=== PATIENT | female | born 1960 | race Caucasian/White ===

== ENCOUNTER 2016-11-11 14:16 | Emergency (ER) | payer OTHER, MEDICAID ==
[~2016-11-11] VITALS: Ht 160 cm; Wt 150.0 kg
[~2016-11-11 14:16] MED LIST: ADVAI250I PO; CYCL-36 PO; METF500 PO; VENTAER INH; ZOFR4TAB3 SL
[2016-11-11 14:18] VITALS: BP 164/80; PULSE 68; RESP 20; TEMP 98; O2SAT 99
--- NOTE | 2016-11-11 15:08 | PD ---
HPI Chief Complaint: Driver Salesman Problem/Complaint Time Seen by Provider: 15:08 Travel History International Travel<30 days: No Contact w/Intl Traveler<30days: No Traveled to known affect area: No History of Present Illness HPI 56-year-old female with history of diabetes, COPD, and vaginal bleeding presents the emergency department for evaluation a lower abdominal pain with associated vaginal bleeding. Patient has been having vaginal bleeding for the last 3 months. She has seen her primary care provider. An ultrasound was done last week and she was referred to a personal coach. Patient states that she has been unable to get to the personal coach in the pain in her lower abdomen is becoming worse. She is changing her pad hourly. She is becoming short of breath with ambulation and experiencing mild dizziness with prolonged ambulation. Denies any fever or chills. States that she was hospitalized once before for this bleeding and was recommended to have a blood transfusion but did not want at that time. She reports being given iron instead. She denies any chest pain. She has no other symptoms to report at this time. PFSH Past Medical History Hx Anticoagulant Therapy: Yes Arthritis: Yes Asthma: Yes Blood Disorders: No Cancer: No Cardiovascular Problems: No COPD: Yes Cerebrovascular Accident: No Diabetes: Yes (METFORMIN) Diminished Hearing: No Deep Vein Thrombosis: Yes Endocrine: No Gastrointestinal Disorders: Yes ( ULCER HX) GERD: Yes Genitourinary: Yes Hepatitis: No Hiatal Hernia: No Hypertension: Yes Immune Disorder: No Implanted Vascular Access Dvce: Yes (IVF) Kidney Stones: Yes Musculoskeletal: Yes (OSTEOARTHRITIS, BACK PROBLEMS) Neurologic: Yes Psychiatric: Yes (CLAUSTRAPHOBIA) Reproductive: No Respiratory: Yes (ASTHMA) Immunizations Current: No Migraines: Yes Renal Failure: No Seizures: No Sleep Apnea: No Thyroid Disease: No Ulcer: No Menopausal: Yes : 4 Para: 4 Miscarriage: 0 Past Surgical History Abdominal Surgery: Yes (LAPAROSCOPIC SX, LIPOMA REMOVAL 02/2014) AICD: No Arteriovenous Shunt: No Body Medical Devices: IVF Cardiac Surgery: No Section: Yes Cholecystectomy: Yes (IN 2003) Ear Surgery: No Endocrine Surgery: No Eye Surgery: No Genitourinary Surgery: No Gynecologic Surgery: No Insulin Pump: No Joint Replacement: Yes (LEFT KNEE PARTIAL REPLACEMENT, FULL KNEE REPLACEMENT ON RIGHT) Neurologic Surgery: No Oral Surgery: No Pacemaker: No Thoracic Surgery: No Other Surgery: Yes (RIGHT ARM REPAIR R/T DOGBITE 09/2007) Social History Alcohol Use: No Tobacco Use: Yes (/2 PPD) Substance Use: No Allergies-Medications (Allergen,Severity, Reaction): Coded Allergies: Peanut (Verified Allergy, Severe, Anaphylaxis, 11/11/16) Reported Meds & Prescriptions Reported Meds & Active Scripts Active Reported Centrum Silver (Multiple Vitamins W/ Minerals) 1 Tab 1 Tab PO DAILY [D3-5000] Gabapentin 300 Mg Cap 300 Mg PO TID Flexeril (Cyclobenzaprine HCl) 10 Mg Tab 10 Mg PO Q8HR Acetaminophen-Codeine 300-15 mg Tab 1 Tab PO Q6H PRN Bupropion HCl 100 Mg Tab 150 Mg PO BID Metformin (Metformin HCl) 1,000 Mg Tab 1,000 Mg PO TID With meals Review of Systems Except as stated in HPI: all other systems reviewed are Neg Physical Exam Narrative GENERAL: Obese female patient, ambulatory and in no acute distress. Patient was noted to be mildly short of breath when she walked back into the room. SKIN: Warm and dry. HEAD: Atraumatic. Normocephalic. EYES: Pupils equal and round. No scleral icterus. No injection or drainage. ENT: No nasal bleeding or discharge. Mucous membranes pink and moist. NECK: Trachea midline. No JVD. CARDIOVASCULAR: Regular rate and rhythm. No murmur appreciated. RESPIRATORY: No accessory muscle use. Diminished likely due to girth.. Breath sounds equal bilaterally. GASTROINTESTINAL: Abdomen soft, nondistended. Suprapubic tenderness to deep palpation. Hepatic and splenic margins not palpable. MUSCULOSKELETAL: No obvious deformities. No clubbing. No cyanosis. No edema. NEUROLOGICAL: Awake and alert. No obvious cranial nerve deficits. Motor grossly within normal limits. Normal speech. PSYCHIATRIC: Appropriate mood and affect; insight and judgment normal. Data Data Last Documented VS Vital Signs Date Time Temp Pulse Resp B/P Pulse Ox O2 Delivery O2 Flow Rate FiO2 11/11/16 18:53 61 18 127/67 96 Room Air 11/11/16 14:18 98.0 Orders Complete Blood Count With Diff (11/11/16 15:07) Basic Metabolic Panel (Bmp) (11/11/16 15:07) Urinalysis - C+S If Indicated (11/11/16 15:07) Type And Screen (11/11/16 15:07) Coag Profile (11/11/16 15:07) Electrocardiogram (11/11/16 ) Urine Culture (11/11/16 16:10) Ct Abd/Pel W Iv Contrast(Rout) (11/11/16 ) Oxycodone-Acetamin 5-325 Mg (Percocet (11/11/16 19:30) Iv Access Insert/Monitor (11/11/16 19:21) Ecg Monitoring (11/11/16 19:21) Oximetry (11/11/16 19:21) Sodium Chloride 0.9% Flush (Ns Flush) (11/11/16 19:30) Iohexol 350 Inj (Omnipaque 350 Inj) (11/11/16 19:43) Labs Laboratory Tests Test 11/11/16 11/11/16 14:35 16:10 White Blood Count 18.1 TH/MM3 Red Blood Count 5.19 MIL/MM3 Hemoglobin 12.8 GM/DL Hematocrit 40.8 % Mean Corpuscular Volume 78.5 FL Mean Corpuscular Hemoglobin 24.7 PG Mean Corpuscular Hemoglobin 31.5 % Concent Red Cell Distribution Width 14.4 % Platelet Count 348 TH/MM3 Mean Platelet Volume 8.5 FL Neutrophils (%) (Auto) 79.2 % Lymphocytes (%) (Auto) 12.9 % Monocytes (%) (Auto) 7.3 % Eosinophils (%) (Auto) 0.3 % Basophils (%) (Auto) 0.3 % Neutrophils # (Auto) 14.3 TH/MM3 Lymphocytes # (Auto) 2.3 TH/MM3 Monocytes # (Auto) 1.3 TH/MM3 Eosinophils # (Auto) 0.1 TH/MM3 Basophils # (Auto) 0.1 TH/MM3 CBC Comment AUTO DIFF Differential Comment AUTO DIFF CONFIRMED Platelet Estimate NORMAL Platelet Morphology Comment NORMAL Prothrombin Time 10.5 SEC Prothromb Time International 1.0 RATIO Ratio Activated Partial 25.9 SEC Thromboplast Time Sodium Level 142 MEQ/L Potassium Level 4.2 MEQ/L Chloride Level 105 MEQ/L Carbon Dioxide Level 29.6 MEQ/L Anion Gap 7 MEQ/L Blood Urea Nitrogen 16 MG/DL Creatinine 0.76 MG/DL Estimat Glomerular Filtration 79 ML/MIN Rate Random Glucose 71 MG/DL Calcium Level 8.9 MG/DL Blood Type A POSITIVE Antibody Screen NEGATIVE Urine Color YELLOW Urine Turbidity CLEAR Urine pH 5.5 Urine Specific Kellogg 1.022 Urine Protein 100 mg/dL Urine Glucose (UA) NEG mg/dL Urine Ketones NEG mg/dL Urine Occult Blood LARGE Urine Nitrite NEG Urine Bilirubin NEG Urine Urobilinogen LESS THAN 2.0 MG/DL Urine Leukocyte Esterase TRACE Urine RBC /hpf Urine WBC 29 /hpf Urine Squamous Epithelial 1 /hpf Cells Microscopic Urinalysis Comment CULTURE INDICATED MDM Medical Decision Making Medical Screen Exam Complete: Yes Emergency Medical Condition: Yes Medical Record Reviewed: Yes Differential Diagnosis Dysmenorrhea versus menorrhagia versus endometriosis versus UTI versus symptomatic anemia Narrative Course 56-year-old female presents to emergency department for evaluation. Workup was initiated in triage. Once of medical bed becomes available, patient will be transferred and care assumed by that provider. Condition: Stable Callie Sepulveda Nov 11, 2016 15:08
[2016-11-11 16:21] LABS: AUTOMATED NEUTROPHIL # 14.3 TH/MM3 (1.8-7.7); BASOPHIL # 0.1 TH/MM3 (0-0.2); BASOPHIL % 0.3 % (0.0-2.0); EOSINOPHIL # 0.1 TH/MM3 (0-0.4); EOSINOPHIL % 0.3 % (0.0-4.0); HEMATOCRIT 40.8 % (35.0-46.0); LYMPH % 12.9 % (9.0-44.0); LYMPHOCYTE # 2.3 TH/MM3 (1.0-4.8); MEAN CELL VOLUME 78.5 FL (80.0-100.0); MEAN CORPUSCULAR HEMOGLOBIN 24.7 PG (27.0-34.0); MEAN CORPUSCULAR HGB CONC 31.5 % (32.0-36.0); MONO % 7.3 % (0.0-8.0); NEUT % 79.2 % (16.0-70.0); PLATELET COUNT 348 TH/MM3 (150-450); RED BLOOD COUNT 5.19 MIL/MM3 (4.00-5.30); RED CELL DISTRIBUTION WIDTH 14.4 % (11.6-17.2); WHITE BLOOD COUNT 18.1 TH/MM3 (4.0-11.0)
[2016-11-11 16:26] LABS: HEMO FLAGS AUTO DIFF
[2016-11-11 16:31] LABS: APTT (PATIENT) 25.9 SEC (24.3-30.1); PROTHROMBIN TIME - PATIENT 10.5 SEC (9.8-11.6)
[2016-11-11 16:54] LABS: BICARBONATE 29.6 MEQ/L (21.0-32.0); POTASSIUM 4.2 MEQ/L (3.5-5.1)
[2016-11-11 16:58] LABS: BLOOD, URINE LARGE (NEG); COMMENT (UR) CULTURE INDICATED; CULTURE IF INDICATED CULTURE INDICATED; GLUCOSE,URINE NEG (NEG); KETONE, URINE NEG (NEG); NITRITE,URINE NEG (NEG); PH, URINE 5.5 (5.0-8.5); SQUAMOUS EPITHELIAL CELL URINE 1 /hpf (0-5); URINE COLOR YELLOW (YELLW/STRAW)
[2016-11-11 17:34] LABS: PLATELET ESTIMATE SMEAR NORMAL (NORMAL); PLATELET MORPHOLOGY NORMAL (NORMAL); SCAN/DIFF AUTO DIFF CONFIRMED
[2016-11-11 18:53] VITALS: BP 127/67; PULSE 61; RESP 18; O2SAT 96
[2016-11-11] MEDS ORDERED: METF1000 PO (18:55)
[2016-11-11] MEDS ORDERED: BUPR100T4 PO (19:03)
[2016-11-11] MEDS ORDERED: ACET300T49 PO (19:03)
[2016-11-11] MEDS ORDERED: CENTTAB PO (19:03)
[2016-11-11] MEDS ORDERED: CYCL1TAB29 PO (19:03)
[2016-11-11] MEDS ORDERED: [UNRECOGNIZED DRUG - OTHER] (19:03)
[2016-11-11] MEDS ORDERED: GABA300C5 PO (19:03)
--- NOTE | 2016-11-11 19:24 | PD ---
Data Data Last Documented VS Vital Signs Date Time Temp Pulse Resp B/P Pulse Ox O2 Delivery O2 Flow Rate FiO2 11/11/16 18:53 61 18 127/67 96 Room Air 11/11/16 14:18 98.0 Orders Complete Blood Count With Diff (11/11/16 15:07) Basic Metabolic Panel (Bmp) (11/11/16 15:07) Urinalysis - C+S If Indicated (11/11/16 15:07) Type And Screen (11/11/16 15:07) Coag Profile (11/11/16 15:07) Electrocardiogram (11/11/16 ) Urine Culture (11/11/16 16:10) Ct Abd/Pel W Iv Contrast(Rout) (11/11/16 ) Oxycodone-Acetamin 5-325 Mg (Percocet (11/11/16 19:30) Iv Access Insert/Monitor (11/11/16 19:21) Ecg Monitoring (11/11/16 19:21) Oximetry (11/11/16 19:21) Sodium Chloride 0.9% Flush (Ns Flush) (11/11/16 19:30) Iohexol 350 Inj (Omnipaque 350 Inj) (11/11/16 19:43) Ed Urine Pregnancytest Poc (11/11/16 21:01) Labs Laboratory Tests Test 11/11/16 11/11/16 14:35 16:10 White Blood Count 18.1 TH/MM3 Red Blood Count 5.19 MIL/MM3 Hemoglobin 12.8 GM/DL Hematocrit 40.8 % Mean Corpuscular Volume 78.5 FL Mean Corpuscular Hemoglobin 24.7 PG Mean Corpuscular Hemoglobin 31.5 % Concent Red Cell Distribution Width 14.4 % Platelet Count 348 TH/MM3 Mean Platelet Volume 8.5 FL Neutrophils (%) (Auto) 79.2 % Lymphocytes (%) (Auto) 12.9 % Monocytes (%) (Auto) 7.3 % Eosinophils (%) (Auto) 0.3 % Basophils (%) (Auto) 0.3 % Neutrophils # (Auto) 14.3 TH/MM3 Lymphocytes # (Auto) 2.3 TH/MM3 Monocytes # (Auto) 1.3 TH/MM3 Eosinophils # (Auto) 0.1 TH/MM3 Basophils # (Auto) 0.1 TH/MM3 CBC Comment AUTO DIFF Differential Comment AUTO DIFF CONFIRMED Platelet Estimate NORMAL Platelet Morphology Comment NORMAL Prothrombin Time 10.5 SEC Prothromb Time International 1.0 RATIO Ratio Activated Partial 25.9 SEC Thromboplast Time Sodium Level 142 MEQ/L Potassium Level 4.2 MEQ/L Chloride Level 105 MEQ/L Carbon Dioxide Level 29.6 MEQ/L Anion Gap 7 MEQ/L Blood Urea Nitrogen 16 MG/DL Creatinine 0.76 MG/DL Estimat Glomerular Filtration 79 ML/MIN Rate Random Glucose 71 MG/DL Calcium Level 8.9 MG/DL Blood Type A POSITIVE Antibody Screen NEGATIVE Urine Color YELLOW Urine Turbidity CLEAR Urine pH 5.5 Urine Specific Onward 1.022 Urine Protein 100 mg/dL Urine Glucose (UA) NEG mg/dL Urine Ketones NEG mg/dL Urine Occult Blood LARGE Urine Nitrite NEG Urine Bilirubin NEG Urine Urobilinogen LESS THAN 2.0 MG/DL Urine Leukocyte Esterase TRACE Urine RBC /hpf Urine WBC 29 /hpf Urine Squamous Epithelial 1 /hpf Cells Microscopic Urinalysis Comment CULTURE INDICATED MDM Supervised Visit with MAR: Yes Narrative Course Patient care assumed from Tiny WONG. Patient seen as part of provider in triage screening. Brief history is a 56-year-old female presents emergency Department with lower quadrant abdominal pain which has been worsening over the past few days. Left lower quadrant predominately. Patient also states she's been having postmenopausal bleeding for the past 3 months. She has seen her primary care physician referred her to a business banking representative. Every time she tries follow-up with a business banking representative they refer her away saying that she does not have insurance to see them. Patient appears well in the emergency Department. A CAT scan was ordered and shows no metastatic lesions and no lesion around her uterus. I reviewed her ultrasound from outside imaging facility and was fairly limited by habitus. Discussed with the patient that she is feeling well and her H&H is stable. Discussed need follow-up with a business banking representative for endometrial biopsy because her presentation is highly suggestive of cancer. She has contraindications to hormone replacement therapy until seen by business banking representative. After discussing with her she now understands the rationale for needing to follow-up with business banking representative and will states she will do so at her earliest convenience. Her pain is much better under control. She is stable for discharge. Is an incidental finding of urinary tract infection will be placed on Keflex. I did offer her pelvic exam in the emergency department she declined. Diagnosis Primary Impression: Post-menopausal bleeding Additional Impressions: Abdominal pain Qualified Code: R10.32 - Left lower quadrant pain Urinary tract infection Qualified Code: N39.0 - Urinary tract infection without hematuria, site unspecified Additional Instruction: Recommended very close follow-up with a business banking representative. Med/Other Pt SpecificInfo: Prescription(s) given Scripts Cephalexin (Keflex)500 Mg Psw636 Mg PO Q6H 7 Days Ref 0 Prov:Denzel Jennings MD 11/11/16 Disposition: 01 DISCHARGE HOME Condition: Stable Denzel Jennings MD Nov 11, 2016 19:24
[2016-11-11] MEDS ORDERED: oxyCODONE/ACETAMINOPHEN 5 MG/325 MG TAB PO ONE (19:30)
[2016-11-11] MEDS ORDERED: SODIUM CHLORIDE 0.9% FLUSH 5 ML FLUSH IVF PRN (19:30)
[2016-11-11] MEDS ORDERED: IOHEXOL 350 MG/ML 50 ML BTL (for RAD DIAG) IV ONE (19:43)
--- NOTE | 2016-11-11 20:14 | RADRPT ---
EXAM DATE/TIME: 11/11/2016 19:39 [facility] COMPARISON: CT ABDOMEN & PELVIS W CONTRAST, March 12, 2016, 23:38. INDICATIONS : Left lower quadrant pain. IV CONTRAST: 96 cc Omnipaque 350 (iohexol) IV ORAL CONTRAST: No oral contrast ingested. RADIATION DOSE: 33.18 CTDIvol (mGy) MEDICAL HISTORY : Diabetes mellitus type 2. Chronic obstructive pulmonary disease. Gastroesophage al reflux disease.DVT, Asthma SURGICAL HISTORY : section. Cholecystectomy. ENCOUNTER: Initial ACUITY: 1 day PAIN SCALE: 6/10 LOCATION: Left lower quadrant TECHNIQUE: Volumetric scanning of the abdomen and pelvis was performed. Using automated exposure control and adjustment of the mA and/or kV according to patient size, radiation dose was kept as low as reasonably achievable to obtain optimal diagnostic quality images. FINDINGS: LOWER LUNGS: The visualized lower lungs are clear. LIVER: Homogeneous density without lesion. There is no dilation of the biliary tree. Gallbladder has been removed. SPLEEN: Normal size without lesion. PANCREAS: Within normal limits. KIDNEYS: Normal in size and shape. There is no mass, stone or hydronephrosis. ADRENAL GLANDS: Within normal limits. VASCULAR: There is no aortic aneurysm. Vena cava filter is in place. BOWEL/MESENTERY: Scattered diverticula are seen along the colon. The stomach, small bowel, and co braulio demonstrate no acute abnormality. There is no free intraperitoneal air or fluid. ABDOMINAL WALL: Within normal limits. RETROPERITONEUM: There is no lymphadenopathy. BLADDER: No wall thickening or mass. REPRODUCTIVE: Within normal limits. INGUINAL: There is no lymphadenopathy or hernia. MUSCULOSKELETAL: Within normal limits for patient age. CONCLUSION: Colonic diverticulosis without evidence of active inflammatory disease. Status post inferior cava filter placement and cholecystectomy. No evidence of acute process. Rajiv Goodson MD on November 11, 2016 at 20:10 Board Certified Radiologist. This report was verified electronically.
[2016-11-11] MEDS ORDERED: CEPH-460 PO (21:01)
--- NOTE | 2016-11-12 19:29 | EKG ---
Date Performed: 11/11/2016 Time Performed: 16:53:12 PTAGE: 56 years EKG: Sinus rhythm Since previous tracing, no significant change noted NORMAL ECG PREVIOUS TRACING : 03/12/2016 21.17 DOCTOR: Serge Bosch Interpretating Date/Time 11/12/2016 19:27:58
== END 2016-11-11 21:37 | disposition home or self-care (01) ==
LOC: NETRI 14:16 → NEPE 21:37
DX: N95.0 Postmenopausal bleeding (principal); R10.32 Left lower quadrant pain; N39.0 Urinary tract infection, site not specified; B96.20 Unspecified Escherichia coli [E. coli] as the cause of diseases classified elsewhere; R06.02 Shortness of breath; R42 Dizziness and giddiness; I10 Essential (primary) hypertension; E11.9 Type 2 diabetes mellitus without complications; F17.200 Nicotine dependence, unspecified, uncomplicated; Z79.01 Long term (current) use of anticoagulants; Z79.84 Long term (current) use of oral hypoglycemic drugs; Z87.39 Personal history of other diseases of the musculoskeletal system and connective tissue; Z87.09 Personal history of other diseases of the respiratory system; Z86.718 Personal history of other venous thrombosis and embolism; Z87.19 Personal history of other diseases of the digestive system; Z87.448 Personal history of other diseases of urinary system; Z86.69 Personal history of other diseases of the nervous system and sense organs; Z86.59 Personal history of other mental and behavioral disorders
CPT/HCPCS: 74177; 80048; 81001; 84703; 85025; 85610; 85730; 86850; 86900; 86901; 87077; 87086; 87186; 93005; 99284; Q9967

== ENCOUNTER 2016-12-22 12:51 | Emergency (ER) | payer OTHER, MEDICAID ==
[~2016-12-22] VITALS: Ht 160 cm; Wt 148.5 kg
[~2016-12-22 12:51] MED LIST changes: +ACET300T49 PO; -ADVAI250I PO; +BUPR100T4 PO; +CENTTAB PO; +CEPH-460 PO; -CYCL-36 PO; +CYCL1TAB29 PO; +GABA300C5 PO; +METF1000 PO; -METF500 PO; -VENTAER INH; -ZOFR4TAB3 SL; +[UNRECOGNIZED DRUG - OTHER]
[2016-12-22 12:53] VITALS: BP 138/85; PULSE 80; RESP 24; TEMP 98.7; O2SAT 98
--- NOTE | 2016-12-22 13:24 | PD ---
Physical Exam Time Seen by Provider: 13:23 Narrative 56 yo F c/o R shoulder, elbow, ankle pain after slip and fall this morning. Denies hitting head or LOC. Pt ambulatory in triage. VSS Seen in triage, awaiting bed placement. Data Data Last Documented VS Vital Signs Date Time Temp Pulse Resp B/P Pulse Ox O2 Delivery O2 Flow Rate FiO2 12/22/16 12:53 98.7 80 24 138/85 98 Room Air MDM Supervised Visit with MAR: Viki Kiser Dec 22, 2016 13:24
[2016-12-22] MEDS ORDERED: SODIUM CHLORIDE 0.9% FLUSH 10 ML FLUSH IVF PRN (14:15)
--- NOTE | 2016-12-22 14:27 | PD ---
HPI Chief Complaint: Fall Time Seen by Provider: 14:10 Travel History International Travel<30 days: No Contact w/Intl Traveler<30days: No Traveled to known affect area: No History of Present Illness HPI Patient's 56-year-old female presenting to the emergency room for evaluation after fall that occurred prior to arrival. Patient states that she was walking to her kitchen and suddenly felt weak and went down to the floor. She hit her right shoulder, right elbow, right ankle when she fell. She states she didn't realize it was happening, she does not remember the events immediately preceding the fall, she states that happened fast. She currently complains of shortness of breath and chest tightness. She reports the pain is a 10 out of 10. Patient denies any cardiac history. She reports asthma, type 2 diabetes, DVT. PFSH Past Medical History Hx Anticoagulant Therapy: Yes Arthritis: Yes Asthma: Yes Blood Disorders: No Cancer: No Cardiovascular Problems: No COPD: Yes Cerebrovascular Accident: No Diabetes: Yes (METFORMIN) Diminished Hearing: No Deep Vein Thrombosis: Yes Endocrine: No Gastrointestinal Disorders: Yes (GERD) GERD: Yes Genitourinary: Yes Hepatitis: No Hiatal Hernia: No Hypertension: Yes Immune Disorder: No Implanted Vascular Access Dvce: Yes (ivf) Kidney Stones: Yes Medical other: No Musculoskeletal: Yes (OSTEOARTHRITIS, BACK PROBLEMS) Neurologic: Yes Psychiatric: Yes (CLAUSTRAPHOBIA) Reproductive: No Respiratory: Yes (ASTHMA) Immunizations Current: No Migraines: Yes Renal Failure: No Seizures: No Sleep Apnea: No Thyroid Disease: No Ulcer: No Tetanus Vaccination: > 5 Years ?: Not Menopausal: Yes : 4 Para: 4 Miscarriage: 0 Past Surgical History Abdominal Surgery: Yes (LAPAROSCOPIC SX, LIPOMA REMOVAL 02/2014) AICD: No Arteriovenous Shunt: No Body Medical Devices: IVF Cardiac Surgery: No Section: Yes Cholecystectomy: Yes (IN 2003) Ear Surgery: No Endocrine Surgery: No Eye Surgery: No Genitourinary Surgery: No Gynecologic Surgery: No Insulin Pump: No Joint Replacement: Yes (LEFT KNEE PARTIAL REPLACEMENT, FULL KNEE REPLACEMENT ON RIGHT) Neurologic Surgery: No Oral Surgery: No Pacemaker: No Thoracic Surgery: No Other Surgery: Yes (RIGHT ARM REPAIR R/T DOGBITE 09/2007) Social History Alcohol Use: No Tobacco Use: Yes (/2 PPD) Substance Use: No Allergies-Medications (Allergen,Severity, Reaction): Coded Allergies: Peanut (Verified Allergy, Severe, Anaphylaxis, 12/22/16) Reported Meds & Prescriptions Reported Meds & Active Scripts Active Keflex (Cephalexin) 500 Mg Cap 500 Mg PO Q6H 7 Days Reported Centrum Silver (Multiple Vitamins W/ Minerals) 1 Tab 1 Tab PO DAILY [D3-5000] Gabapentin 300 Mg Cap 300 Mg PO TID Flexeril (Cyclobenzaprine HCl) 10 Mg Tab 10 Mg PO Q8HR Acetaminophen-Codeine 300-15 mg Tab 1 Tab PO Q6H PRN Bupropion HCl 100 Mg Tab 150 Mg PO BID Metformin (Metformin HCl) 1,000 Mg Tab 1,000 Mg PO TID With meals Review of Systems Except as stated in HPI: all other systems reviewed are Neg General / Constitutional: No: Fever, Chills HENT: No: Headaches Cardiovascular: Positive: Chest Pain or Discomfort Respiratory: Positive: Shortness of Breath, Wheezing Gastrointestinal: No: Nausea, Abdominal Pain Musculoskeletal: Positive: Myalgias, Arthralgias, Pain Neurologic: Positive: Dizziness, Syncope Physical Exam Narrative GENERAL: The obese, well-developed, alert female. Appears uncomfortable, in no acute distress. SKIN: Focused skin assessment warm/dry. HEAD: Atraumatic. Normocephalic. EYES: Pupils equal and round. No scleral icterus. No injection or drainage. ENT: No nasal bleeding or discharge. Mucous membranes pink and moist. NECK: Trachea midline. No JVD. CARDIOVASCULAR: Regular rate and rhythm. No murmur appreciated. RESPIRATORY: No accessory muscle use. Expiratory wheezes with diminished lung sounds in bases. GASTROINTESTINAL: Abdomen obese soft, non-tender, nondistended. Hepatic and splenic margins not palpable. MUSCULOSKELETAL: No obvious deformities. No clubbing. No cyanosis. No edema. Tenderness to palpation on right shoulder and right lateral ankle. NEUROLOGICAL: Awake and alert. No obvious cranial nerve deficits. Motor grossly within normal limits. Normal speech. PSYCHIATRIC: Appropriate mood and affect; insight and judgment normal. Data Data Last Documented VS Vital Signs Date Time Temp Pulse Resp B/P Pulse Ox O2 Delivery O2 Flow Rate FiO2 12/22/16 15:16 98 Room Air 12/22/16 14:01 83 21 12/22/16 12:53 98.7 138/85 Orders Electrocardiogram (12/22/16 14:06) B-Type Natriuretic Peptide (12/22/16 14:06) Ckmb (Isoenzyme) Profile (12/22/16 14:06) Complete Blood Count With Diff (12/22/16 14:06) Comprehensive Metabolic Panel (12/22/16 14:06) Magnesium (Mg) (12/22/16 14:06) Prothrombin Time / Inr (Pt) (12/22/16 14:06) Act Partial Throm Time (Ptt) (12/22/16 14:06) Troponin I (12/22/16 14:06) Chest, Single Ap (12/22/16 14:06) Ecg Monitoring (12/22/16 14:06) Bilateral Bp Monitoring (12/22/16 14:06) Iv Access Insert/Monitor (12/22/16 14:06) Oximetry (12/22/16 14:06) Oxygen Administration (12/22/16 14:06) Sodium Chloride 0.9% Flush (Ns Flush) (12/22/16 14:15) Shoulder, Complete (>2vws) (12/22/16 ) Ankle, Complete ([id number]) (12/22/16 ) Ct Pulmonary Angiogram (12/22/16 ) Albuterol-Ipratropium Neb (Duoneb Neb) (12/22/16 14:45) Urinalysis - C+S If Indicated (12/22/16 15:46) Vascular Access Team Consult PRN (12/22/16 16:03) Vascular Poc Ultrasound (12/22/16 ) Ketorolac Inj (Toradol Inj) (12/22/16 18:00) Orphenadrine Inj (Norflex Inj) (12/22/16 18:00) Iohexol 350 Inj (Omnipaque 350 Inj) (12/22/16 18:37) Labs Laboratory Tests Test 12/22/16 12/22/16 14:20 16:10 White Blood Count 15.4 TH/MM3 Red Blood Count 4.95 MIL/MM3 Hemoglobin 12.3 GM/DL Hematocrit 37.8 % Mean Corpuscular Volume 76.3 FL Mean Corpuscular Hemoglobin 24.9 PG Mean Corpuscular Hemoglobin 32.7 % Concent Red Cell Distribution Width 14.5 % Platelet Count 370 TH/MM3 Mean Platelet Volume 8.8 FL Neutrophils (%) (Auto) 80.3 % Lymphocytes (%) (Auto) 13.4 % Monocytes (%) (Auto) 5.5 % Eosinophils (%) (Auto) 0.4 % Basophils (%) (Auto) 0.4 % Neutrophils # (Auto) 12.4 TH/MM3 Lymphocytes # (Auto) 2.1 TH/MM3 Monocytes # (Auto) 0.8 TH/MM3 Eosinophils # (Auto) 0.1 TH/MM3 Basophils # (Auto) 0.1 TH/MM3 CBC Comment AUTO DIFF Differential Comment AUTO DIFF CONFIRMED Platelet Estimate NORMAL Platelet Morphology Comment NORMAL Red Cell Morphology Comment NORMAL Prothrombin Time 10.3 SEC Prothromb Time International 0.9 RATIO Ratio Activated Partial 26.1 SEC Thromboplast Time Sodium Level 141 MEQ/L Potassium Level 3.8 MEQ/L Chloride Level 104 MEQ/L Carbon Dioxide Level 29.0 MEQ/L Anion Gap 8 MEQ/L Blood Urea Nitrogen 14 MG/DL Creatinine 0.78 MG/DL Estimat Glomerular Filtration 77 ML/MIN Rate Random Glucose 108 MG/DL Calcium Level 9.1 MG/DL Magnesium Level 1.9 MG/DL Total Bilirubin 0.9 MG/DL Aspartate Amino Transf 11 U/L (AST/SGOT) Alanine Aminotransferase 19 U/L (ALT/SGPT) Alkaline Phosphatase 94 U/L Total Creatine Kinase 79 U/L Troponin I LESS THAN 0.02 NG/ML B-Type Natriuretic Peptide 17 PG/ML Total Protein 7.7 GM/DL Albumin 3.2 GM/DL Urine Color YELLOW Urine Turbidity HAZY Urine pH 5.0 Urine Specific [place] 1.022 Urine Protein NEG mg/dL Urine Glucose (UA) NEG mg/dL Urine Ketones NEG mg/dL Urine Occult Blood NEG Urine Nitrite NEG Urine Bilirubin NEG Urine Urobilinogen LESS THAN 2.0 MG/DL Urine Leukocyte Esterase SMALL Urine RBC 1 /hpf Urine WBC 7 /hpf Urine Squamous Epithelial 9 /hpf Cells Urine Bacteria FEW /hpf Urine Mucus FEW /lpf Microscopic Urinalysis Comment CULT NOT INDICATED MDM Medical Decision Making Medical Screen Exam Complete: Yes Emergency Medical Condition: Yes Interpretation(s) Last Impressions Chest X-Ray 12/22/16 1406 Signed Impressions: Service Date/Time: December 15:26 - CONCLUSION: Normal examination. Parveen Cristina MD Shoulder X-Ray 12/22/16 0000 Signed Impressions: Service Date/Time: December 15:33 - CONCLUSION: Unremarkable examination of the right shoulder except for significant acromial undersurface spurring, chronic. Parveen Cristina MD Ankle X-Ray 12/22/16 0000 Signed Impressions: Service Date/Time: December 15:28 - CONCLUSION: Small ossific fragment distal to the tip of the malleolus could be an avulsion fracture or chronic. Parveen Cristina MD Vital Signs Date Time Temp Pulse Resp B/P Pulse Ox O2 Delivery O2 Flow Rate FiO2 12/22/16 14:01 83 21 98 Room Air 12/22/16 12:53 98.7 80 24 138/85 98 Room Air Differential Diagnosis COPD exacerbation versus syncope versus cardiac arrhythmia versus electrolyte abnormality versus chest pain versus fracture versus sprain versus strain versus dislocation Narrative Course Patient is a 56-year-old female presenting to the emergency for evaluation of shoulder ankle pain after fall this morning. Patient states she was walking to her kitchen and she normally would when she had what appeared to be a syncopal episode. Patient does not remember the events immediately before she fell but states it happened fast. She presented short of breath and tachypneic. Patient has a history of DVT with IVC filter placement. Labs and imaging ordered and pending. CT pulmonary angiogram ordered the patient's history of DVT as well as report of shortness of breath. Chest x-ray shows no acute disease Ankle x-ray shows a possible fragment on the medial malleolus, patient is weightbearing in the emergency department. Shoulder x-rays negative CBC with a mildly elevated white count with left shift Chemistry and coags are unremarkable Troponin is less than 0.02. CT pulmonary angiogram is negative for PE. Patient will be discharged home, plan of care discussed with my attending physician. Patient is encouraged to rest, ice, elevate extremity. She is encouraged to follow-up with her primary doctor or return to emergency department for any new or worsening symptoms. Diagnosis Primary Impression: Ankle pain Qualified Code: M25.571 - Right ankle pain, unspecified chronicity Additional Impressions: Fall Qualified Code: W19.XXXA - Fall, initial encounter Syncope, near Referrals: Primary Care Physician 2 days Patient Instructions: Ankle Sprain (ED), Fall Prevention (ED), General Instructions, Near Syncope (ED) Additional Instructions: Follow-up with your primary doctor in 1-2 days Rest, ice, elevate extremity Take medications as directed Return to emergency department for any new or worsening symptoms Med/Other Pt SpecificInfo: Prescription(s) given Scripts Ibuprofen 800 Mg [id number] Mg PO Q8H PRN (Pain/Inflammation) 10 Days Ref 0 Prov:Ayala Luther 12/22/16 Cyclobenzaprine (Flexeril)10 Mg Tab10 Mg PO TID PRN (MUSCLE SPASM) 5 Days Ref 0 Prov:Ayala Luther 12/22/16 Disposition: 01 DISCHARGE HOME Condition: Stable Ayala Luther Dec 22, 2016 14:27
[2016-12-22] MEDS ORDERED: RESP: ALBUTEROL 2.5 MG/IPRATROPIUM 0.5 MG NEB (SCH) NEB ONE (14:45)
[2016-12-22 14:52] LABS: AUTOMATED NEUTROPHIL # 12.4 TH/MM3 (1.8-7.7); BASOPHIL # 0.1 TH/MM3 (0-0.2); BASOPHIL % 0.4 % (0.0-2.0); EOSINOPHIL # 0.1 TH/MM3 (0-0.4); EOSINOPHIL % 0.4 % (0.0-4.0); HEMATOCRIT 37.8 % (35.0-46.0); LYMPH % 13.4 % (9.0-44.0); LYMPHOCYTE # 2.1 TH/MM3 (1.0-4.8); MEAN CELL VOLUME 76.3 FL (80.0-100.0); MEAN CORPUSCULAR HEMOGLOBIN 24.9 PG (27.0-34.0); MEAN CORPUSCULAR HGB CONC 32.7 % (32.0-36.0); MONO % 5.5 % (0.0-8.0); NEUT % 80.3 % (16.0-70.0); PLATELET COUNT 370 TH/MM3 (150-450); RED BLOOD COUNT 4.95 MIL/MM3 (4.00-5.30); RED CELL DISTRIBUTION WIDTH 14.5 % (11.6-17.2); WHITE BLOOD COUNT 15.4 TH/MM3 (4.0-11.0)
[2016-12-22 14:54] LABS: HEMO FLAGS AUTO DIFF
[2016-12-22 15:10] LABS: APTT (PATIENT) 26.1 SEC (24.3-30.1); INTERNATIONAL NORMALIZED RATIO 0.9 RATIO; PROTHROMBIN TIME - PATIENT 10.3 SEC (9.8-11.6)
[2016-12-22 15:14] LABS: ALT (GPT) 19 U/L (10-53); ANION GAP 8 MEQ/L (5-15); AST (GOT) 11 U/L (15-37); BLOOD UREA NITROGEN 14 MG/DL (7-18); CHLORIDE 104 MEQ/L (98-107); GLOMERULAR FILTRATION RATE 77 ML/MIN (>89); MAGNESIUM 1.9 MG/DL (1.5-2.5); POTASSIUM 3.8 MEQ/L (3.5-5.1); SODIUM (NA) 141 MEQ/L (136-145)
[2016-12-22 15:18] LABS: ALKALINE PHOSPHATASE 94 U/L (45-117); TOTAL BILIRUBIN ADULT 0.9 MG/DL (0.2-1.0)
[2016-12-22 15:20] LABS: CREATINE KINASE 79 U/L (26-192)
[2016-12-22 15:22] LABS: PLATELET ESTIMATE SMEAR NORMAL (NORMAL); PLATELET MORPHOLOGY NORMAL (NORMAL); SCAN/DIFF AUTO DIFF CONFIRMED
--- NOTE | 2016-12-22 15:36 | RADRPT ---
EXAM DATE/TIME: 12/22/2016 15:26 [facility] COMPARISON: CHEST SINGLE AP, May 03, 2015, 13:40. INDICATIONS : Shortness of breath. MEDICAL HISTORY : SURGICAL HISTORY : None. ENCOUNTER: Initial ACUITY: 1 day PAIN SCORE: 0/10 LOCATION: Bilateral chest FINDINGS: A single view of the chest demonstrates the lungs to be symmetrically aerated without evidence of mas s, infiltrate or effusion. The cardiomediastinal contours are unremarkable. Osseous structures are intact. CONCLUSION: Normal examination. Parveen Cristina MD on December 22, 2016 at 15:34 Board Certified Radiologist. This report was verified electronically.
--- NOTE | 2016-12-22 15:38 | RADRPT ---
EXAM DATE/TIME: 12/22/2016 15:28 [facility] COMPARISON: No previous studies available for comparison. INDICATIONS : Fall. MEDICAL HISTORY : None. SURGICAL HISTORY : None. ENCOUNTER: Initial ACUITY: 1 day PAIN SCORE: 8/10 LOCATION: Right ankle FINDINGS: Three view exam was performed of the right ankle. The bony structures are in normal alignment. No e vidence of dislocation, or soft tissue swelling. Small ossific fragment distal to the tip of the med ial malleolus. The ankle mortise is intact. No radiopaque foreign bodies are seen. Bony mineraliz ation is normal. CONCLUSION: Small ossific fragment distal to the tip of the malleolus could be an avulsion fracture or chronic. Parveen Cristina MD on December 22, 2016 at 15:35 Board Certified Radiologist. This report was verified electronically.
--- NOTE | 2016-12-22 15:38 | RADRPT ---
EXAM DATE/TIME: 12/22/2016 15:33 [facility] COMPARISON: No previous studies available for comparison. INDICATIONS : Fall. MEDICAL HISTORY : None. SURGICAL HISTORY : None. ENCOUNTER: Initial ACUITY: 1 day PAIN SCORE: 10/10 LOCATION: Right shoulder FINDINGS: Multiple view examination of the right shoulder demonstrates no evidence of fracture or dislocation. The glenohumeral and acromioclavicular joints are maintained. There is normal range of motion betwe en internal and external rotation. Bony mineralization is normal. CONCLUSION: Unremarkable examination of the right shoulder except for significant acromial undersurface spurring, chronic. Parveen Cristina MD on December 22, 2016 at 15:36 Board Certified Radiologist. This report was verified electronically.
[2016-12-22 16:37] LABS: BACTERIA, URINE FEW /hpf; BLOOD, URINE NEG (NEG); GLUCOSE,URINE NEG (NEG); KETONE, URINE NEG (NEG); MUCUS URINE FEW /lpf (OCC); NITRITE,URINE NEG (NEG); SQUAMOUS EPITHELIAL CELL URINE 9 /hpf (0-5); URINE COLOR YELLOW (YELLW/STRAW)
[2016-12-22 16:39] LABS: COMMENT (UR) CULT NOT INDICATED; CULTURE IF INDICATED CULT NOT INDICATED
--- NOTE | 2016-12-22 17:19 | PD ---
Data Data Last Documented VS Vital Signs Date Time Temp Pulse Resp B/P Pulse Ox O2 Delivery O2 Flow Rate FiO2 12/22/16 15:16 98 Room Air 12/22/16 14:01 83 21 12/22/16 12:53 98.7 138/85 Orders Electrocardiogram (12/22/16 14:06) B-Type Natriuretic Peptide (12/22/16 14:06) Ckmb (Isoenzyme) Profile (12/22/16 14:06) Complete Blood Count With Diff (12/22/16 14:06) Comprehensive Metabolic Panel (12/22/16 14:06) Magnesium (Mg) (12/22/16 14:06) Prothrombin Time / Inr (Pt) (12/22/16 14:06) Act Partial Throm Time (Ptt) (12/22/16 14:06) Troponin I (12/22/16 14:06) Chest, Single Ap (12/22/16 14:06) Ecg Monitoring (12/22/16 14:06) Bilateral Bp Monitoring (12/22/16 14:06) Iv Access Insert/Monitor (12/22/16 14:06) Oximetry (12/22/16 14:06) Oxygen Administration (12/22/16 14:06) Sodium Chloride 0.9% Flush (Ns Flush) (12/22/16 14:15) Shoulder, Complete (>2vws) (12/22/16 ) Ankle, Complete ([id number]) (12/22/16 ) Ct Pulmonary Angiogram (12/22/16 ) Albuterol-Ipratropium Neb (Duoneb Neb) (12/22/16 14:45) Urinalysis - C+S If Indicated (12/22/16 15:46) Vascular Access Team Consult PRN (12/22/16 16:03) Vascular Poc Ultrasound (12/22/16 ) Labs Laboratory Tests Test 12/22/16 12/22/16 14:20 16:10 White Blood Count 15.4 TH/MM3 Red Blood Count 4.95 MIL/MM3 Hemoglobin 12.3 GM/DL Hematocrit 37.8 % Mean Corpuscular Volume 76.3 FL Mean Corpuscular Hemoglobin 24.9 PG Mean Corpuscular Hemoglobin 32.7 % Concent Red Cell Distribution Width 14.5 % Platelet Count 370 TH/MM3 Mean Platelet Volume 8.8 FL Neutrophils (%) (Auto) 80.3 % Lymphocytes (%) (Auto) 13.4 % Monocytes (%) (Auto) 5.5 % Eosinophils (%) (Auto) 0.4 % Basophils (%) (Auto) 0.4 % Neutrophils # (Auto) 12.4 TH/MM3 Lymphocytes # (Auto) 2.1 TH/MM3 Monocytes # (Auto) 0.8 TH/MM3 Eosinophils # (Auto) 0.1 TH/MM3 Basophils # (Auto) 0.1 TH/MM3 CBC Comment AUTO DIFF Differential Comment AUTO DIFF CONFIRMED Platelet Estimate NORMAL Platelet Morphology Comment NORMAL Red Cell Morphology Comment NORMAL Prothrombin Time 10.3 SEC Prothromb Time International 0.9 RATIO Ratio Activated Partial 26.1 SEC Thromboplast Time Sodium Level 141 MEQ/L Potassium Level 3.8 MEQ/L Chloride Level 104 MEQ/L Carbon Dioxide Level 29.0 MEQ/L Anion Gap 8 MEQ/L Blood Urea Nitrogen 14 MG/DL Creatinine 0.78 MG/DL Estimat Glomerular Filtration 77 ML/MIN Rate Random Glucose 108 MG/DL Calcium Level 9.1 MG/DL Magnesium Level 1.9 MG/DL Total Bilirubin 0.9 MG/DL Aspartate Amino Transf 11 U/L (AST/SGOT) Alanine Aminotransferase 19 U/L (ALT/SGPT) Alkaline Phosphatase 94 U/L Total Creatine Kinase 79 U/L Troponin I LESS THAN 0.02 NG/ML B-Type Natriuretic Peptide 17 PG/ML Total Protein 7.7 GM/DL Albumin 3.2 GM/DL Urine Color YELLOW Urine Turbidity HAZY Urine pH 5.0 Urine Specific [place] 1.022 Urine Protein NEG mg/dL Urine Glucose (UA) NEG mg/dL Urine Ketones NEG mg/dL Urine Occult Blood NEG Urine Nitrite NEG Urine Bilirubin NEG Urine Urobilinogen LESS THAN 2.0 MG/DL Urine Leukocyte Esterase SMALL Urine RBC 1 /hpf Urine WBC 7 /hpf Urine Squamous Epithelial 9 /hpf Cells Urine Bacteria FEW /hpf Urine Mucus FEW /lpf Microscopic Urinalysis Comment CULT NOT INDICATED MDM Supervised Visit with MAR: Yes Narrative Course The history, exam, and medical decision-making in the associated mid-level provider note were completed with my assistance. I reviewed and agree with the findings presented. I attest that I had a [id number] encounter with the patient on the same day, and personally performed and documented my assessment and findings in the medical record. *My assessment and Findings: 56 year-old woman, presents emergent department after nursing. Nursing above so she fell toward her right side. She did not fall to the ground. She pain in her right shoulder right ankle afterwards. She looks generally well. She also had some shortness of breath and chest tightness afterwards. She is morbidly obese and has a history of lung disease. She looks otherwise well. We did have some concern for PE as she's had a history of DVT in the past. X- ray of the ankle shows possible avulsion fracture. Suspect this is chronic. Patient able to walk. I don't think she needs further treatment for that. Will check CT pulmonary angiogram and if negative patient will be discharged for outpatient follow-up. Parveen Vegas MD Dec 22, 2016 17:19
[2016-12-22] MEDS ORDERED: KETOROLAC TROMETHAMINE 30 MG/ML (IVP) VIAL IV PUSH ONE (18:00)
[2016-12-22] MEDS ORDERED: ORPHENADRINE INJ 60 MG/2 ML AMP IV ONE (18:00)
[2016-12-22] MEDS ORDERED: IOHEXOL 350 MG/ML 10 ML VIAL (for RAD DIAG) IV ONE (18:37)
--- NOTE | 2016-12-22 18:50 | RADRPT ---
EXAM DATE/TIME: 12/22/2016 18:25 [facility] COMPARISON: CT PULMONARY ANGIOGRAM, September 06, 2014, 10:21. INDICATIONS : Shortness of breath with history of DVT; evaluate for pulmonary embolism. IV CONTRAST: 60 cc Omnipaque 350 (iohexol) IV RADIATION DOSE: 25.48 CTDIvol (mGy) MEDICAL HISTORY : Hypertension. Deep venous thrombosis. Diabetes mellitus type 2. SURGICAL HISTORY : section. ENCOUNTER: Initial ACUITY: 1 day PAIN SCALE: 3/10 LOCATION: chest TECHNIQUE: Volumetric scanning of the chest was performed using a pulmonary embolism protocol MIP images were re constructed. Using automated exposure control and adjustment of the mA and/or kV according to patien t size, radiation dose was kept as low as reasonably achievable to obtain optimal diagnostic quality images. FINDINGS: PULMONARY ARTERIES: No filling defects are seen in the pulmonary arteries through the segmental level. LUNGS: There is a tiny nodular density along the posterior medial pleural surface of the right lower lobe, n ot clearly present previously. A low this, some mild linear parenchymal density along the pleural ibrahima face is likely scarring. Is minimal atelectasis in the anterolateral left lung base. PLEURAE: There is no pleural thickening or pleural effusion. MEDIASTINUM: There is good visualization of the great vessels of the middle mediastinum. No evidence of mediastin al or hilar adenopathy/mass. MUSCULOSKELETAL: Within normal limits for patient age. MISCELLANEOUS: The visualized upper abdominal organs demonstrate no acute abnormality. CONCLUSION: No evidence of pulmonary embolism. 7 mm right lower lobe pleural-based lung nodule Donovan Armstrong MD on December 22, 2016 at 18:44 Board Certified Radiologist. This report was verified electronically.
[2016-12-22] MEDS ORDERED: IBUP800T23 PO (19:02)
[2016-12-22] MEDS ORDERED: CYCL1TAB29 PO (19:02)
--- NOTE | 2016-12-22 22:39 | EKG ---
Date Performed: 12/22/2016 Time Performed: 14:25:22 PTAGE: 56 years EKG: Sinus rhythm NORMAL ECG NO PREVIOUS TRACING DOCTOR: Murtaza Light Interpretating Date/Time 12/22/2016 22:38:36
== END 2016-12-22 19:52 | disposition home or self-care (01) ==
LOC: NEPD 12:51
DX: M25.571 Pain in right ankle and joints of right foot (principal); Z79.01 Long term (current) use of anticoagulants; E11.9 Type 2 diabetes mellitus without complications; Z79.4 Long term (current) use of insulin; I10 Essential (primary) hypertension; W19.XXXA Unspecified fall, initial encounter
CPT/HCPCS: 71010; 71275; 73030; 73610; 80053; 81001; 82550; 83735; 83880; 84484; 85025; 85610; 85730; 93005; 94664; 96374; 96375; 99285; J1885; J2360; Q9967

== ENCOUNTER 2017-01-09 19:59 | Emergency (ER) | payer OTHER ==
[~2017-01-09] VITALS: Ht 160 cm; Wt 150.0 kg
[~2017-01-09 19:59] MED LIST changes: +IBUP800T23 PO
[2017-01-09 20:01] VITALS: BP 155/72; PULSE 89; RESP 18; TEMP 99; O2SAT 95
--- NOTE | 2017-01-09 20:43 | PD ---
Physical Exam Time Seen by Provider: 20:40 Narrative 56 y/o female with LLE pain/swelling for one week. Seen by pcp, had an ultrasound performed at [place] 6 days ago, does not want to wait for the results through her pcp because symptoms have worsened. vss Seen at triage desk. Awaiting bed placement. Data Data Last Documented VS Vital Signs Date Time Temp Pulse Resp B/P Pulse Ox O2 Delivery O2 Flow Rate FiO2 01/09/17 20:01 99.0 89 18 155/72 95 Room Air [facility] Medical Record Reviewed: Yes Supervised Visit with MAR: Blake Cordero January 09, 2017 20:42
[2017-01-10] VITALS: BP 133/74; PULSE 79; RESP 18; O2SAT 97
--- NOTE | 2017-01-10 01:23 | PD ---
HPI . Pain and swelling, left lower extremity Chief Complaint: Edema Time Seen by Provider: 01:18 Travel History International Travel<30 days: No Contact w/Intl Traveler<30days: No Traveled to known affect area: No History of Present Illness HPI Patient presents complaining with pain and swelling of the left lower shooting. She states this started a week ago. She was seen by her primary care provider at an ultrasound done as an outpatient. She does not know the results of the ultrasound. She states that her leg charted getting larger and hotter 3 days ago. She states that she has tried to contact her primary care physician but has not been successful. She subsequently presented here for treatment. She denies fever. No exacerbating or relieving factors. She rates her pain as a 10/10. PFSH Past Medical History Hx Anticoagulant Therapy: Yes Arthritis: Yes Asthma: Yes Blood Disorders: No Cancer: No Cardiovascular Problems: No COPD: Yes Cerebrovascular Accident: No Diabetes: Yes (METFORMIN) Patient Takes Glucophage: Yes (01/09/2017) Diminished Hearing: No Deep Vein Thrombosis: Yes Endocrine: No Gastrointestinal Disorders: Yes (GERD) GERD: Yes Genitourinary: Yes Hepatitis: No Hiatal Hernia: No Hypertension: Yes Immune Disorder: No Implanted Vascular Access Dvce: Yes (ivf) Kidney Stones: Yes Musculoskeletal: Yes (OSTEOARTHRITIS, BACK PROBLEMS) Neurologic: Yes Psychiatric: Yes (CLAUSTRAPHOBIA) Reproductive: No Respiratory: Yes (ASTHMA) Immunizations Current: No Migraines: Yes Renal Failure: No Seizures: No Sleep Apnea: No Thyroid Disease: No Ulcer: No Tetanus Vaccination: Unknown Influenza Vaccination: No ?: Not Menopausal: Yes : 4 Para: 4 Miscarriage: 0 Past Surgical History Abdominal Surgery: Yes (LAPAROSCOPIC SX, LIPOMA REMOVAL 02/2014) AICD: No Arteriovenous Shunt: No Body Medical Devices: IVF Cardiac Surgery: No Section: Yes Cholecystectomy: Yes (IN 2003) Ear Surgery: No Endocrine Surgery: No Eye Surgery: No Genitourinary Surgery: No Gynecologic Surgery: No Insulin Pump: No Joint Replacement: Yes (LEFT KNEE PARTIAL REPLACEMENT, FULL KNEE REPLACEMENT ON RIGHT) Neurologic Surgery: No Oral Surgery: No Pacemaker: No Thoracic Surgery: No Other Surgery: Yes (RIGHT ARM REPAIR R/T DOGBITE 09/2007) Social History Alcohol Use: No Tobacco Use: Yes (/2 PPD) Substance Use: No Allergies-Medications (Allergen,Severity, Reaction): Coded Allergies: Peanut (Verified Allergy, Severe, Anaphylaxis, 01/09/17) Reported Meds & Prescriptions Reported Meds & Active Scripts Active Reported Centrum Silver (Multiple Vitamins W/ Minerals) 1 Tab 1 Tab PO DAILY Metformin (Metformin HCl) 1,000 Mg Tab 1,000 Mg PO TID With meals Review of Systems Except as stated in HPI: all other systems reviewed are Neg General / Constitutional: No: Fever, Chills Musculoskeletal: Positive: Myalgias, Edema Skin: Positive Change in Pigmentation Physical Exam Narrative GENERAL: Awake and alert and in no acute distress. SKIN: Warm and dry. She does have some redness and warmth to the lateral aspect of the left lower extremity. HEAD: Atraumatic. Normocephalic. EYES: Pupils equal and round. NECK: Trachea midline. CARDIOVASCULAR: Regular rate and rhythm. RESPIRATORY: No accessory muscle use. MUSCULOSKELETAL: No obvious deformities. This patient is extremely large. It is impossible for me to tell whether or not she has edema. NEUROLOGICAL: Awake and alert. No obvious cranial nerve deficits. Motor grossly within normal limits. Normal speech. PSYCHIATRIC: Appropriate mood and affect; insight and judgment normal. Data Data Last Documented VS Vital Signs Date Time Temp Pulse Resp B/P Pulse Ox O2 Delivery O2 Flow Rate FiO2 01/09/17 20:01 99.0 89 18 155/72 95 Room Air Orders Us Leg Venous Doppler (01/10/17 00:03) Complete Blood Count With Diff (01/10/17 01:24) ^ Saline Lock (01/10/17 01:24) Morphine Inj (Morphine Inj) (01/10/17 01:30) Ondansetron Inj (Zofran Inj) (01/10/17 01:30) Cefazolin 2 Gm Premix (Ancef 2 Gm Premix (01/10/17 02:30) Labs Laboratory Tests Test 01/10/17 02:30 White Blood Count 8.4 TH/MM3 Red Blood Count 4.90 MIL/MM3 Hemoglobin 12.0 GM/DL Hematocrit 37.3 % Mean Corpuscular Volume 76.2 FL Mean Corpuscular Hemoglobin 24.5 PG Mean Corpuscular Hemoglobin 32.2 % Concent Red Cell Distribution Width 15.0 % Platelet Count 302 TH/MM3 Mean Platelet Volume 8.4 FL Neutrophils (%) (Auto) 70.0 % Lymphocytes (%) (Auto) 24.4 % Monocytes (%) (Auto) 4.1 % Eosinophils (%) (Auto) 0.6 % Basophils (%) (Auto) 0.9 % Neutrophils # (Auto) 5.9 TH/MM3 Lymphocytes # (Auto) 2.1 TH/MM3 Monocytes # (Auto) 0.3 TH/MM3 Eosinophils # (Auto) 0.1 TH/MM3 Basophils # (Auto) 0.1 TH/MM3 CBC Comment AUTO DIFF Differential Total Cells 100 Counted Neutrophils % (Manual) 58 % Band Neutrophils % 4 % Lymphocytes % 30 % Monocytes % 4 % Eosinophils % 1 % Neutrophils # (Manual) 5.5 TH/MM3 Metamyelocytes 2 % Myelocytes 1 % Differential Comment FINAL DIFF MANUAL Platelet Estimate NORMAL Platelet Morphology Comment NORMAL Red Cell Morphology Comment NORMAL MDM Medical Decision Making Medical Screen Exam Complete: Yes Emergency Medical Condition: Yes Differential Diagnosis Differential diagnosis of leg pain includes but is not limited to lumbar radiculopathy, arthritis, myalgias, DVT. Narrative Course Patient presents complaining with redness, warmth, swelling and tenderness of her left lower extremity. Ultrasound rule out DVT is pending. However, I suspect that this is cellulitis. Last Impressions Lower Extremity Ultrasound 01/10/17 0003 Signed Impressions: Service Date/Time: Tuesday, January 10, 2017 01:37 - CONCLUSION: 1. No evidence of deep venous thrombosis. Superficial thrombosis within the calf. There has been no significant change when compared to the prior exam.8 Lit Davis MD I will treat her for cellulitis. CBC Diagram 01/10/17 02:30 She has cellulitis of her left lower extremity but no reason to suspect sepsis. She is afebrile with a normal white blood count. Diagnosis Primary Impression: Cellulitis Qualified Code: L03.116 - Cellulitis of left lower extremity Patient Instructions: Cellulitis (DC), General Instructions Med/Other Pt SpecificInfo: Prescription(s) given Scripts Tramadol (Ultram)50 Mg Tab50 Mg PO Q4H PRN (PAIN) #12 TAB Ref 0 Prov:Unique Cotto MD 01/10/17 Cephalexin (Keflex)500 Mg Exh137 Mg PO Q8H #30 CAP Ref 0 Prov:Unique Cotto MD 01/10/17 Disposition: 01 DISCHARGE HOME Condition: Stable Unique Cotto MD January 10, 2017 01:23
[2017-01-10] MEDS ORDERED: ONDANSETRON HCL 4 MG/2 ML VIAL IV PUSH ONE (01:30)
[2017-01-10] MEDS ORDERED: MORPHINE SULFATE 4 MG/ML INJ IV PUSH ONE (01:30)
--- NOTE | 2017-01-10 02:19 | RADRPT ---
EXAM DATE/TIME: 01/10/2017 01:37 [facility] COMPARISON: No previous studies available for comparison. EXTERNAL COMPARISON : [facility], US LEG, BILATERAL VENOUS DOPPLER, January 03, 2017 INDICATIONS : Swelling in left lower extremity. MEDICAL HISTORY : Osteoarthritis. Hypertension. IVC filter. Deep vein thrombosis. Asthma. COPD. GERD. Renal calcul i. Diabetes. SURGICAL HISTORY : section. Lipoma removal. Bilateral knee replacement. Right arm repair after dog bite. ENCOUNTER: [facility]ela ACUITY: 2 weeks PAIN SCORE: 10/10 LOCATION: Left leg. TECHNIQUE: Venous ultrasound of the leg was performed from the inguinal ligament to the proximal calf. Real-felipe e, color Doppler and spectral tracing, compression and augmentation techniques were used. FINDINGS: There is normal compressibility of the deep venous system from the inguinal region to the proximal ca lf. No echogenic clot is seen in the lumen of the common femoral, femoral, popliteal, and posterior tibial veins. There is a normal response of the venous system to proximal and distal augmentation an d respiration. CONCLUSION: 1. No evidence of deep venous thrombosis. Superficial thrombosis within the calf. There has been no s ignificant change when compared to the prior exam.8 Lit Davis MD on January 10, 2017 at 2:16 Board Certified Radiologist. This report was verified electronically.
[2017-01-10] MEDS ORDERED: ceFAZolin 2 GM PREMIX 50 ML IV ONE (02:30)
[2017-01-10 02:41] LABS: AUTOMATED NEUTROPHIL # 5.9 TH/MM3 (1.8-7.7); BASOPHIL # 0.1 TH/MM3 (0-0.2); BASOPHIL % 0.9 % (0.0-2.0); EOSINOPHIL # 0.1 TH/MM3 (0-0.4); EOSINOPHIL % 0.6 % (0.0-4.0); HEMATOCRIT 37.3 % (35.0-46.0); HEMO FLAGS AUTO DIFF; LYMPH % 24.4 % (9.0-44.0); LYMPHOCYTE # 2.1 TH/MM3 (1.0-4.8); MEAN CELL VOLUME 76.2 FL (80.0-100.0); MEAN CORPUSCULAR HEMOGLOBIN 24.5 PG (27.0-34.0); MEAN CORPUSCULAR HGB CONC 32.2 % (32.0-36.0); MONO % 4.1 % (0.0-8.0); PLATELET COUNT 302 TH/MM3 (150-450); WHITE BLOOD COUNT 8.4 TH/MM3 (4.0-11.0)
[2017-01-10 03:11] LABS: BANDS 4 % (0-6); EOSINOPHILS 1 % (0-4); METAMYELOCYTES 2 % (0-1); MYELOCYTES 1 % (0-0); NEUTROPHIL # MANUAL DIFF 5.5 TH/MM3 (1.8-7.7); POLYS (SEG NEUTROPHILS) 58 % (16-70); WBC DIFF SAMPLE 100
[2017-01-10 03:12] LABS: PLATELET ESTIMATE SMEAR NORMAL (NORMAL); PLATELET MORPHOLOGY NORMAL (NORMAL); SCAN/DIFF FINAL DIFF MANUAL
[2017-01-10] MEDS ORDERED: CEPH-460 PO (03:47)
[2017-01-10] MEDS ORDERED: ULTR50TA5 PO (03:47)
== END 2017-01-10 04:09 | disposition home or self-care (01) ==
LOC: NEPC 19:59
DX: L03.116 Cellulitis of left lower limb (principal); J45.909 Unspecified asthma, uncomplicated; E11.9 Type 2 diabetes mellitus without complications; I10 Essential (primary) hypertension; F17.210 Nicotine dependence, cigarettes, uncomplicated; Z79.01 Long term (current) use of anticoagulants
CPT/HCPCS: 85007; 85027; 93971; 96365; 96375; 99284; J0690; J2270; J2405

== ENCOUNTER 2017-12-04 12:51 | Emergency (ER) | payer OTHER ==
[~2017-12-04 12:51] MED LIST changes: -ACET300T49 PO; -BUPR100T4 PO; -CYCL1TAB29 PO; -GABA300C5 PO; -IBUP800T23 PO; +TRAM50 PO; -[UNRECOGNIZED DRUG - OTHER]
[2017-12-04 13:47] VITALS: BP 161/68; PULSE 64; RESP 18; TEMP 98.4; O2SAT 97
[2017-12-04] MEDS ORDERED: SODIUM CHLORIDE 0.9% FLUSH 10 ML FLUSH IVF PRN (18:30)
--- NOTE | 2017-12-04 19:33 | RADRPT ---
EXAM DATE/TIME: 12/04/2017 18:36 [facility] COMPARISON: No previous studies available for comparison. INDICATIONS : Chest pain starting today. Cold and flu like symptoms for three days. MEDICAL HISTORY : Osteoarthritis. Hypertension. IVC filter. Deep vein thrombosis. Asthma. COPD. GERD. Renal calculi. Di abetes. SURGICAL HISTORY : section. Lipoma removal. Bilateral knee replacement. Right arm repair after dog bite. ENCOUNTER: Initial ACUITY: 3 days PAIN SCORE: 7/10 LOCATION: Bilateral chest FINDINGS: PA and lateral views of the chest demonstrate the lungs to be symmetrically aerated without evidence of mass, infiltrate or effusion. The cardiomediastinal contours are unremarkable. Osseous structure s are intact. CONCLUSION: 1. No active disease. Incidental note made of inferior vena cava filter. Avi Boyle MD on December 04, 2017 at 19:29 Board Certified Radiologist. This report was verified electronically.
[2017-12-04 19:34] LABS: AUTOMATED NEUTROPHIL # 7.9 TH/MM3 (1.8-7.7); BASOPHIL % 0.4 % (0.0-2.0); EOSINOPHIL # 0.2 TH/MM3 (0-0.4); EOSINOPHIL % 1.6 % (0.0-4.0); HEMATOCRIT 42.7 % (35.0-46.0); HEMOGLOBIN 13.8 GM/DL (11.6-15.3); LYMPH % 18.6 % (9.0-44.0); LYMPHOCYTE # 2.1 TH/MM3 (1.0-4.8); MEAN CELL VOLUME 78.7 FL (80.0-100.0); MEAN CORPUSCULAR HEMOGLOBIN 25.5 PG (27.0-34.0); MEAN CORPUSCULAR HGB CONC 32.4 % (32.0-36.0); MEAN PLATELET VOLUME 9.1 FL (7.0-11.0); MONO % 9.3 % (0.0-8.0); NEUT % 70.1 % (16.0-70.0); PLATELET COUNT 329 TH/MM3 (150-450); RED BLOOD COUNT 5.43 MIL/MM3 (4.00-5.30); WHITE BLOOD COUNT 11.2 TH/MM3 (4.0-11.0)
[2017-12-04 19:48] LABS: ALBUMIN 3.7 GM/DL (3.4-5.0); AST (GOT) 15 U/L (15-37); BICARBONATE 28.8 MEQ/L (21.0-32.0); BLOOD UREA NITROGEN 12 MG/DL (7-18); CALCIUM 9.3 MG/DL (8.5-10.1); CHLORIDE 104 MEQ/L (98-107); GLOMERULAR FILTRATION RATE 87 ML/MIN (>89); GLUCOSE,RANDOM 84 MG/DL (74-106); MAGNESIUM 1.9 MG/DL (1.5-2.5); SODIUM (NA) 140 MEQ/L (136-145)
[2017-12-04 19:53] LABS: ALKALINE PHOSPHATASE 118 U/L (45-117); ALT (GPT) 17 U/L (10-53); TOTAL BILIRUBIN ADULT 0.7 MG/DL (0.2-1.0); TOTAL PROTEIN 8.8 GM/DL (6.4-8.2); TROPONIN I LESS THAN 0.02 NG/ML (0.02-0.05)
[2017-12-04] MEDS ORDERED: ONDANSETRON HCL 4 MG/2 ML VIAL IV PUSH ONE (20:45)
[2017-12-04] MEDS ORDERED: SODIUM CHLORID 0.9% 500 ML INJ 500 ML IV ONE ×2 (20:45→22:15)
[2017-12-04] MEDS ORDERED: MORPHINE SULFATE 4 MG/ML INJ IV PUSH ONE (20:45)
--- NOTE | 2017-12-04 20:57 | PD ---
HPI Chief Complaint: Chest Pain Time Seen by Provider: 20:22 Travel History International Travel<30 days: No Contact w/Intl Traveler<30days: No Traveled to known affect area: No History of Present Illness HPI The patient is a 57-year-old female who presents to the emergency department for headache. The patient developed a headache earlier today at 11 AM. The headache was posterior, radiated into the neck, was described as burning. She then described sharp stabbing anterior chest pain that was nonradiating, shortness of breath, nausea without any vomiting. The chest pain and shortness of breath resolved, however, she still has a posterior headache. The patient was concerned because she had a family member from an aneurysm that "burst". She denies any difficulty with neck movement, denies any focal deficits of the upper or lower extremities. She denies any associated photophobia. Most of the patient's symptoms have resolved except for the posterior headache and burning in the neck. PFSH Past Medical History Hx Anticoagulant Therapy: Yes Arthritis: Yes Asthma: Yes Blood Disorders: No Cancer: No Cardiovascular Problems: No COPD: Yes Cerebrovascular Accident: No Diabetes: Yes Patient Takes Glucophage: Yes Diminished Hearing: No Deep Vein Thrombosis: Yes Endocrine: No Gastrointestinal Disorders: Yes (GERD) GERD: Yes Genitourinary: Yes Hepatitis: No Hiatal Hernia: No Hypertension: Yes Immune Disorder: No Implanted Vascular Access Dvce: Yes (ivf) Kidney Stones: Yes Musculoskeletal: Yes (OSTEOARTHRITIS, BACK PROBLEMS) Neurologic: Yes Psychiatric: Yes (CLAUSTRAPHOBIA) Reproductive: No Respiratory: Yes Immunizations Current: No Migraines: Yes Renal Failure: No Seizures: No Sleep Apnea: No Thyroid Disease: No Ulcer: No Tetanus Vaccination: > 5 Years Influenza Vaccination: Yes ?: Not Menopausal: Yes : 4 Para: 4 Miscarriage: 0 Past Surgical History Abdominal Surgery: Yes (LAPAROSCOPIC SX, LIPOMA REMOVAL 02/2014) AICD: No Arteriovenous Shunt: No Body Medical Devices: IVF Cardiac Surgery: No Section: Yes Cholecystectomy: Yes (IN 2003) Ear Surgery: No Endocrine Surgery: No Eye Surgery: No Genitourinary Surgery: No Gynecologic Surgery: No Insulin Pump: No Joint Replacement: Yes (LEFT KNEE PARTIAL REPLACEMENT, FULL KNEE REPLACEMENT ON RIGHT) Neurologic Surgery: No Oral Surgery: No Pacemaker: No Thoracic Surgery: No Other Surgery: Yes (RIGHT ARM REPAIR R/T DOGBITE 09/2007) Social History Alcohol Use: No Tobacco Use: Yes (09/12 PPD) Substance Use: No Allergies-Medications (Allergen,Severity, Reaction): Coded Allergies: ipratropium (Unverified Allergy, Severe, Anaphylaxis, 04/25/17) Reported Meds & Prescriptions Reported Meds & Active Scripts Active Ultram (Tramadol HCl) 50 Mg Tab 50 Mg PO Q4H PRN Keflex (Cephalexin) 500 Mg Cap 500 Mg PO Q8H Reported Centrum Silver (Multiple Vitamins W/ Minerals) 1 Tab 1 Tab PO DAILY Metformin (Metformin HCl) 1,000 Mg Tab 1,000 Mg PO TID With meals Review of Systems Except as stated in HPI: all other systems reviewed are Neg General / Constitutional: No: Fever Eyes: No: Blurred Vision, Photophobia HENT: Positive: Headaches, Neck Pain (Burning in the neck) Cardiovascular: Positive: Chest Pain or Discomfort Respiratory: Positive: Shortness of Breath Gastrointestinal: Positive: Nausea, No: Vomiting, Abdominal Pain Musculoskeletal: No: Weakness Neurologic: Positive: Dizziness, Headache, No: Weakness, Change in Mentation, Slurred Speech, Paresthesia, Sensory Disturbance Physical Exam Narrative GENERAL: Awake, alert, very pleasant 57-year-old female who appears her stated age and is in no acute respiratory distress. SKIN: Focused skin assessment warm/dry. Hirsutism noted over the facial area. HEAD: Atraumatic. Normocephalic. EYES: Pupils equal and round. No scleral icterus. No injection or drainage. ENT: No nasal bleeding or discharge. Mucous membranes pink and moist. NECK: Trachea midline. No JVD. No meningeal signs. Patient is able to fully flex and extend the neck as well as rotate the neck. CARDIOVASCULAR: Regular rate and rhythm. No murmur appreciated. RESPIRATORY: No accessory muscle use. Clear to auscultation. Breath sounds equal bilaterally. GASTROINTESTINAL: Abdomen soft, non-tender, nondistended. Obese, no rebound tenderness. Back: No tenderness over the thoracic or lumbar spine. MUSCULOSKELETAL: No obvious deformities. No clubbing. No cyanosis. Mild bilateral extremity edema. NEUROLOGICAL: Awake and alert. No obvious cranial nerve deficits. Motor grossly within normal limits. Normal speech. Nonfocal. Oriented 4. Follows commands without difficulty. PSYCHIATRIC: Appropriate mood and affect; insight and judgment normal. Data Data Last Documented VS Vital Signs Date Time Temp Pulse Resp B/P (MAP) Pulse Ox O2 Delivery O2 Flow Rate FiO2 12/04/17 13:47 98.4 64 18 161/68 (99) 97 Orders Orders Electrocardiogram (12/04/17 ) Ckmb (Isoenzyme) Profile (12/04/17 18:23) Complete Blood Count With Diff (12/04/17 18:23) Comprehensive Metabolic Panel (12/04/17 18:23) Magnesium (Mg) (12/04/17 18:23) Prothrombin Time / Inr (Pt) (12/04/17 18:23) Act Partial Throm Time (Ptt) (12/04/17 18:23) Troponin I (12/04/17 18:23) Lipase (12/04/17 18:23) Sodium Chloride 0.9% Flush (Ns Flush) (12/04/17 18:30) Chest, Pa & Lat (12/04/17 18:23) Ct Brain W/O Iv Contrast(Rout) (12/04/17 ) Morphine Inj (Morphine Inj) (12/04/17 20:45) Ondansetron Inj (Zofran Inj) (12/04/17 20:45) Sodium Chlorid 0.9% 500 Ml Inj (Ns 500 M (12/04/17 20:45) Troponin I (12/04/17 22:00) Urinalysis - C+S If Indicated (12/04/17 20:39) Prochlorperazine Inj (Compazine Inj) (12/04/17 22:15) Ketorolac Inj (Toradol Inj) (12/04/17 22:15) Diphenhydramine Inj (Benadryl Inj) (12/04/17 22:15) Sodium Chlorid 0.9% 500 Ml Inj (Ns 500 M (12/04/17 22:15) Urine Culture (12/04/17 18:56) Labs Laboratory Tests Test 12/04/17 18:55 12/04/17 18:56 12/04/17 22:20 White Blood Count 11.2 TH/MM3 Red Blood Count 5.43 MIL/MM3 Hemoglobin 13.8 GM/DL Hematocrit 42.7 % Mean Corpuscular Volume 78.7 FL Mean Corpuscular Hemoglobin 25.5 PG Mean Corpuscular Hemoglobin Concent 32.4 % Red Cell Distribution Width 15.0 % Platelet Count 329 TH/MM3 Mean Platelet Volume 9.1 FL Neutrophils (%) (Auto) 70.1 % Lymphocytes (%) (Auto) 18.6 % Monocytes (%) (Auto) 9.3 % Eosinophils (%) (Auto) 1.6 % Basophils (%) (Auto) 0.4 % Neutrophils # (Auto) 7.9 TH/MM3 Lymphocytes # (Auto) 2.1 TH/MM3 Monocytes # (Auto) 1.0 TH/MM3 Eosinophils # (Auto) 0.2 TH/MM3 Basophils # (Auto) 0.0 TH/MM3 CBC Comment DIFF FINAL Differential Comment Prothrombin Time 10.0 SEC Prothromb Time International Ratio 1.0 RATIO Activated Partial Thromboplast Time 27.5 SEC Blood Urea Nitrogen 12 MG/DL Creatinine 0.70 MG/DL Random Glucose 84 MG/DL Total Protein 8.8 GM/DL Albumin 3.7 GM/DL Calcium Level 9.3 MG/DL Magnesium Level 1.9 MG/DL Alkaline Phosphatase 118 U/L Aspartate Amino Transf (AST/SGOT) 15 U/L Alanine Aminotransferase (ALT/SGPT) 17 U/L Total Bilirubin 0.7 MG/DL Sodium Level 140 MEQ/L Potassium Level 4.0 MEQ/L Chloride Level 104 MEQ/L Carbon Dioxide Level 28.8 MEQ/L Anion Gap 7 MEQ/L Estimat Glomerular Filtration Rate 87 ML/MIN Total Creatine Kinase 72 U/L Troponin I LESS THAN 0.02 NG/ML LESS THAN 0.02 NG/ML Lipase 117 U/L Urine Color YELLOW Urine Turbidity HAZY Urine pH 5.5 Urine Specific Gleason 1.023 Urine Protein NEG mg/dL Urine Glucose (UA) NEG mg/dL Urine Ketones NEG mg/dL Urine Occult Blood NEG Urine Nitrite POS Urine Bilirubin NEG Urine Urobilinogen LESS THAN 2.0 MG/DL Urine Leukocyte Esterase NEG Urine WBC 1 /hpf Urine Squamous Epithelial Cells <1 /hpf Urine Bacteria MANY /hpf Urine Mucus FEW /lpf Microscopic Urinalysis Comment CULTURE INDICATED MDM Medical Decision Making Medical Screen Exam Complete: Yes Emergency Medical Condition: Yes Medical Record Reviewed: Yes Interpretation(s) EKG reveals normal sinus rhythm with a rate of 72. No ischemic changes or ectopy noted. CT reveals normal examination for a patient of this age. Chest x-ray reveals no acute disease. Incidental note of inferior vena cava filter Laboratory Tests Test 12/04/17 18:55 12/04/17 18:56 12/04/17 22:20 White Blood Count 11.2 TH/MM3 Red Blood Count 5.43 MIL/MM3 Hemoglobin 13.8 GM/DL Hematocrit 42.7 % Mean Corpuscular Volume 78.7 FL Mean Corpuscular Hemoglobin 25.5 PG Mean Corpuscular Hemoglobin Concent 32.4 % Red Cell Distribution Width 15.0 % Platelet Count 329 TH/MM3 Mean Platelet Volume 9.1 FL Neutrophils (%) (Auto) 70.1 % Lymphocytes (%) (Auto) 18.6 % Monocytes (%) (Auto) 9.3 % Eosinophils (%) (Auto) 1.6 % Basophils (%) (Auto) 0.4 % Neutrophils # (Auto) 7.9 TH/MM3 Lymphocytes # (Auto) 2.1 TH/MM3 Monocytes # (Auto) 1.0 TH/MM3 Eosinophils # (Auto) 0.2 TH/MM3 Basophils # (Auto) 0.0 TH/MM3 CBC Comment DIFF FINAL Differential Comment Prothrombin Time 10.0 SEC Prothromb Time International Ratio 1.0 RATIO Activated Partial Thromboplast Time 27.5 SEC Blood Urea Nitrogen 12 MG/DL Creatinine 0.70 MG/DL Random Glucose 84 MG/DL Total Protein 8.8 GM/DL Albumin 3.7 GM/DL Calcium Level 9.3 MG/DL Magnesium Level 1.9 MG/DL Alkaline Phosphatase 118 U/L Aspartate Amino Transf (AST/SGOT) 15 U/L Alanine Aminotransferase (ALT/SGPT) 17 U/L Total Bilirubin 0.7 MG/DL Sodium Level 140 MEQ/L Potassium Level 4.0 MEQ/L Chloride Level 104 MEQ/L Carbon Dioxide Level 28.8 MEQ/L Anion Gap 7 MEQ/L Estimat Glomerular Filtration Rate 87 ML/MIN Total Creatine Kinase 72 U/L Troponin I LESS THAN 0.02 NG/ML LESS THAN 0.02 NG/ML Lipase 117 U/L Urine Color YELLOW Urine Turbidity HAZY Urine pH 5.5 Urine Specific Gleason 1.023 Urine Protein NEG mg/dL Urine Glucose (UA) NEG mg/dL Urine Ketones NEG mg/dL Urine Occult Blood NEG Urine Nitrite POS Urine Bilirubin NEG Urine Urobilinogen LESS THAN 2.0 MG/DL Urine Leukocyte Esterase NEG Urine WBC 1 /hpf Urine Squamous Epithelial Cells <1 /hpf Urine Bacteria MANY /hpf Urine Mucus FEW /lpf Microscopic Urinalysis Comment CULTURE INDICATED Differential Diagnosis Differential diagnosis includes subarachnoid hemorrhage, aneurysm, tension headache, migraine, atypical chest pain, ACS, dissection, carotid dissection, pulmonary embolism. Narrative Course IV was established, labs are drawn and sent, and the patient was placed on cardiac telemetry monitoring and continuous pulse oximetry monitoring. Initial triage labs were drawn in triage including troponin. The patient is more concerned of the headache and posterior neck burning, she is concerned she may have had an aneurysm that ruptured as she had a family member with similar symptoms. Therefore, CT the brain was ordered to rule out subarachnoid hemorrhage. The patient was administered morphine, Zofran, and IV fluids. CT the brain reveals normal examination for a patient of this age, no evidence of subarachnoid hemorrhage. Patient has no meningeal signs, I do not believe she has a subarachnoid hemorrhage. Initial troponin was negative, 3 hour troponin level was sent to lab. The second 3 hour troponin level was negative. Patient has atypical symptoms and headache, she is advised to follow-up with a primary physician. She will be provided a copy of her CT results and lab results at discharge. Diagnosis Primary Impression: Cephalgia Qualified Codes: R51 - Headache Additional Impression: Atypical chest pain Patient Instructions: General Instructions Additional Instructions: Please provide the patient a copy of her CT results and lab results at discharge. Follow-up with a primary physician. Return if symptoms worsen or progress. Med/Other Pt SpecificInfo: Prescription(s) given Scripts Murvypemdj-Vmguuhkthdsvv-Yfzekytp (Fioricet) 50-300-40 Mg Cap 1 CAP PO Q4H Y for HEADACHE, #10 CAP 0 Refills Prov: Tawanda Luz MD 12/04/17 Disposition: 01 DISCHARGE HOME Condition: Stable Tawanda Luz MD Dec 04, 2017 20:57
--- NOTE | 2017-12-04 21:42 | RADRPT ---
EXAM DATE/TIME: 12/04/2017 20:53 [facility] COMPARISON: No previous studies available for comparison. INDICATIONS : Cephalgia. RADIATION DOSE: 56.35 CTDIvol (mGy) MEDICAL HISTORY : Hypertension. Deep venous thrombosis. SURGICAL HISTORY : Cholecystectomy. Ortho ENCOUNTER: Initial ACUITY: 1 day PAIN SCALE: 5/10 LOCATION: cranial TECHNIQUE: Multiple contiguous axial images were obtained of the head. Using automated exposure control and adj ustment of the mA and/or kV according to patient size, radiation dose was kept as low as reasonably a chievable to obtain optimal diagnostic quality images. DICOM format image data is available electro nically for review and comparison. FINDINGS: CEREBRUM: The ventricles are normal for age. No evidence of midline shift, mass lesion, hemorrhage or acute in farction. No extra-axial fluid collections are seen. POSTERIOR FOSSA: The cerebellum and brainstem are intact. The 4th ventricle is midline. The cerebellopontine angle i s unremarkable. EXTRACRANIAL: The visualized portion of the orbits is intact. SKULL: The calvaria is intact. No evidence of skull fracture. CONCLUSION: Normal examination for a patient of this age. Avi Boyle MD on December 04, 2017 at 21:37 Board Certified Radiologist. This report was verified electronically.
[2017-12-04] MEDS ORDERED: PROCHLORPERAZINE INJ 10 MG/2 ML VIAL IV PUSH ONE (22:15)
[2017-12-04] MEDS ORDERED: diphenhydrAMINE HCL 50 MG/ML VIAL IV PUSH ONE (22:15)
[2017-12-04] MEDS ORDERED: KETOROLAC TROMETHAMINE 30 MG/ML (IVP) VIAL IV PUSH ONE (22:15)
[2017-12-04 22:22] LABS: BACTERIA, URINE MANY /hpf; BILIRUBIN, URINE NEG (NEG); BLOOD, URINE NEG (NEG); GLUCOSE,URINE NEG (NEG); KETONE, URINE NEG (NEG); MUCUS URINE FEW /lpf (OCC); NITRITE,URINE POS (NEG); PH, URINE 5.5 (5.0-8.5); SQUAMOUS EPITHELIAL CELL URINE <1 /hpf (0-5); URINE COLOR YELLOW (YELLW/STRAW); URINE LEUKOCYTE ESTERASE NEG (NEG)
[2017-12-04] MEDS ORDERED: BUTA1CAP PO (23:15)
--- NOTE | 2017-12-05 15:43 | EKG ---
Date Performed: 12/04/2017 Time Performed: 17:38:04 PTAGE: 57 years EKG: Sinus rhythm NORMAL ECG Since the PREVIOUS TRACING , no significant change noted PREVIOUS TRACIN12/22/2016 14.25 DOCTOR: Dano Piña Interpretating Date/Time 12/05/2017 15:40:10
[2017-12-08] MEDS ORDERED: IPRASOL INH (22:19)
[2017-12-08] MEDS ORDERED: CENTCHW4 CHEW (22:19)
[2017-12-08] MEDS ORDERED: D 50CAP2 PO (22:19)
[2017-12-08] MEDS ORDERED: IBUP1TAB7 PO (22:19)
[2017-12-08] MEDS ORDERED: VARE1 PO (22:19)
[2017-12-09] MEDS ORDERED: Budeson-Formot 160-4.5 Mcg Inh INH (10:01)
[2017-12-09] MEDS ORDERED: PANT40TA3 PO (10:01)
[2017-12-09] MEDS ORDERED: PRED20 PO (10:01)
[2017-12-09] MEDS ORDERED: LEVA750T9 PO (10:01)
[2017-12-09] MEDS ORDERED: KETO10 PO (10:01)
== END 2017-12-05 00:23 | disposition home or self-care (01) ==
LOC: NED 12:51 → NEPC 12-05 00:23
DX: R51 Headache (principal); R07.89 Other chest pain; R11.0 Nausea; E11.9 Type 2 diabetes mellitus without complications; Z79.84 Long term (current) use of oral hypoglycemic drugs
CPT/HCPCS: 70450; 71046; 80053; 81001; 82550; 83690; 83735; 84484; 85025; 85610; 85730; 87077; 87086; 87186; 93005; 96361; 96374; 96375; 99285; J0780; J1200; J1885; J2270; J2405; J7040

== ENCOUNTER 2017-12-15 10:59 | Emergency (ER) | payer OTHER, MEDICAID ==
[~2017-12-15] VITALS: Ht 160 cm; Wt 149.5 kg
[~2017-12-15 10:59] MED LIST changes: +Budeson-Formot 160-4.5 Mcg Inh INH; -CEPH-460 PO; +D 50CAP2 PO; +IPRASOL INH; +KETO10 PO; +LEVA750T9 PO; +PANT40TA3 PO; +PRED20 PO; +VARE1 PO
[2017-12-15 11:06] VITALS: BP 144/87; PULSE 95; RESP 20; TEMP 98
[2017-12-15] MEDS ORDERED: VENTAER INH (12:13)
[2017-12-15] MEDS ORDERED: WARF-23 PO (12:13)
[2017-12-15] MEDS ORDERED: IBUP1TAB7 PO (12:13)
[2017-12-15] MEDS ORDERED: SODIUM CHLOR 0.9% 1000 ML INJ 1,000 ML IV ONE (12:19)
[2017-12-15] MEDS ORDERED: diphenhydrAMINE HCL 50 MG/ML VIAL IVP ONE (12:30)
[2017-12-15] MEDS ORDERED: PROCHLORPERAZINE INJ 10 MG/2 ML VIAL IVP ONE (12:30)
[2017-12-15] MEDS ORDERED: SODIUM CHLORIDE 0.9% FLUSH 10 ML FLUSH IVF PRN (12:30)
--- NOTE | 2017-12-15 12:54 | PD ---
HPI Chief Complaint: Dizziness Time Seen by Provider: 12:04 Travel History International Travel<30 days: No Contact w/Intl Traveler<30days: No Traveled to known affect area: No History of Present Illness HPI Is a 57-year-old woman who presents to the emergency department complaining of about 12 days of headache. States it came on over the course of about an hour or so. She had some vision changes in the left eye initially with some flashing. Pains been worse since then. Mostly in the left side of her head. She gets dizzy anytime she looks around. No other visual changes. She was seen in the emergency department a CT scan that was negative. She is was admitted to the hospital for COPD exacerbation. She saw her doctor who thought that the headache may be a side effect of some of the medications. She finished all his medications and she still has the headache and the dizziness, especially when she looks to the left side. She otherwise had been feeling generally well and healthy. Denies any history of headache or migraines. History Past Medical History Narrative Medical COPD Arthritis JOAQUÍN on CPAP Type 2 diabetes DVT, status post IVC filter, states she takes warfarin now however her past 2 INRs have been 1.0 Tetanus Vaccination: Unknown Influenza Vaccination: Yes Menopausal: Yes : 4 Para: 4 Social History Alcohol Use: No Tobacco Use: No (ON CHANTIX) Allergies-Medications (Allergen,Severity, Reaction): Coded Allergies: peanut (Verified Allergy, Severe, Anaphylaxis, 12/15/17) Uncoded Allergies: OMNISCAN /MRI PRECAUTION (Adverse Reaction, Intermediate, pt had hives after omniscan injection, 12/15/17) Pt had hives after omniscan injection. Reported Meds & Prescriptions Reported Meds & Active Scripts Active [Budeson-Formot 160-4.5 Mcg Inh] 60 PUFF Aero 2 Puff INH Q12HR Reported Ibuprofen 800 Mg Tab 800 Mg PO Q6HR PRN Warfarin 5 Mg Tab 5 Mg PO DAILY Ventolin Hfa 18 GM Inh (Albuterol Sulfate) 90 Mcg/Act Aer 2 Puff INH Q6H PRN Chantix (Varenicline) 1 Mg Tab 1 Mg PO BIDPC Duoneb (Ipratropium-Albuterol Neb) 0.5-2.5 Mg/3 Ml Neb 1 Nebule INH PRN Metformin (Metformin HCl) 1,000 Mg Tab 1,000 Mg PO TID With meals Review of Systems Except as stated in HPI: all other systems reviewed are Neg Physical Exam Narrative GENERAL: Well-appearing 37-year-old woman, no acute distress. SKIN: Focused skin assessment warm/dry. HEAD: Atraumatic. Normocephalic. EYES: Pupils equal and round. No scleral icterus. No injection or drainage. ENT: No nasal bleeding or discharge. Mucous membranes pink and moist. No zoster. NECK: Trachea midline. No JVD. CARDIOVASCULAR: Regular rate and rhythm. No murmur appreciated. RESPIRATORY: No accessory muscle use. Clear to auscultation. Breath sounds equal bilaterally. GASTROINTESTINAL: Abdomen soft, non-tender, nondistended. Hepatic and splenic margins not palpable. MUSCULOSKELETAL: No obvious deformities. No edema. NEUROLOGICAL: Awake and alert. Cranial nerves II through XII are intact. No nystagmus. Strength full and equal upper and lower extremities. Normal finger to nose. Normal heel to yarbrough. Normal gait, able to walk unassisted. No sensory deficits. PSYCHIATRIC: Appropriate mood and affect; insight and judgment normal. Data Data Last Documented VS Vital Signs Date Time Temp Pulse Resp B/P (MAP) Pulse Ox O2 Delivery O2 Flow Rate FiO2 12/15/17 11:06 98.0 95 20 144/87 (106) Orders Orders Ecg Monitoring (12/15/17 12:19) Iv Access Insert/Monitor (12/15/17 12:19) Oximetry (12/15/17 12:19) Sodium Chloride 0.9% Flush (Ns Flush) (12/15/17 12:30) Prochlorperazine Inj (Compazine Inj) (12/15/17 12:30) Diphenhydramine Inj (Benadryl Inj) (12/15/17 12:30) Sodium Chlor 0.9% 1000 Ml Inj (Ns 1000 M (12/15/17 12:19) Mri Brain W&W/O Contrast (12/15/17 ) Mrv Brain W/Wo Contrast (12/15/17 ) Diphenhydramine Inj (Benadryl Inj) (12/15/17 14:45) Gadodiamide Pf Inj (Omniscan Pf Inj) (12/15/17 14:25) [facility] Medical Decision Making Medical Screen Exam Complete: Yes Emergency Medical Condition: Yes Interpretation(s) MRI/MRV: Negative Differential Diagnosis Headache or migraine, zoster shingles, dural vein thrombosis, other Narrative Course Medical decision making 57-year-old woman presents emerged department vision changes and headache, more on the left side. She has a history of thrombophilia and is obese. She states she takes Coumadin but her INRs have been 1. Headaches been ongoing for about [address] was negative. Will check MRI to rule out dural vein thrombosis. Symptomatic treatment. Outpatient follow-up. Diagnosis Primary Impression: Headache Patient Instructions: General Instructions Additional Instructions: Take Fioricet if needed for headache. Follow-up with your primary doctor in the next 2-4 days. Return to the emergency department for any new or worsening symptoms. Med/Other Pt SpecificInfo: Prescription(s) given Scripts Dwunfwhxcy-Evzlxgnwsofmf-Ntjswyxa (Fioricet) 50-300-40 Mg Cap 1-2 CAP PO Q6H Y for HEADACHE, #12 CAP 0 Refills Prov: Parveen Vegas MD 12/15/17 Disposition: 01 DISCHARGE HOME Condition: Stable Parveen Vegas MD Dec 15, 2017 12:54
[2017-12-15] MEDS ORDERED: GADODIAMIDE PF 287 MG/ML 20 ML VIAL (for RAD MRI) IV PUSH ONE (14:25)
[2017-12-15] MEDS ORDERED: diphenhydrAMINE HCL 50 MG/ML VIAL IV PUSH ONE (14:45)
--- NOTE | 2017-12-15 15:09 | RADRPT ---
EXAM DATE/TIME: 12/15/2017 14:02 [place] COMPARISON: CT BRAIN W/O CONTRAST, December 04, 2017, 20:53. INDICATIONS : Cephalgia. CONTRAST: 20 cc Omniscan (gadodiamide) IV MEDICAL HISTORY : Diabetes mellitus type 2. SURGICAL HISTORY : IVC Filter placement. Total knee replacement, left. Total knee replacement, right. Cholecystectomy. ENCOUNTER: Initial ACUITY: 1 week PAIN SCORE: 5/10 LOCATION: cranial TECHNIQUE: Multiplanar, multisequence MRI of the brain was performed both prior to and following the administrat ion of paramagnetic contrast. FINDINGS: CEREBRUM: The ventricles are normal for age. No evidence of midline shift, mass lesion, hemorrhage or acute in farction. No extraaxial fluid collections are seen. The pituitary gland and suprasellar cistern are normal in configuration. WHITE MATTER: No significant signal abnormalities are seen in the white matter. POSTERIOR FOSSA: The cerebellum and brainstem are intact. The 4th ventricle is midline. The cerebellopontine angle is unremarkable. The cerebellar tonsils are low-lying in position, but do not extend below the plane o f the foramen magnum. No midbrain anomalies seen. DIFFUSION IMAGING: No focal areas of restricted diffusion are seen. No evidence of acute infarction. EXTRACRANIAL: The visualized portions of the orbits and paranasal sinuses are unremarkable. POST-CONTRAST: No abnormal areas of parenchymal or dural enhancement. No evidence of blood-brain barrier breakdown. CONCLUSION: 1. No acute findings in the brain. 2. Low-lying cerebellar tonsils without evidence of tonsillar herniation. Jack García MD on December 15, 2017 at 14:56 Board Certified Radiologist. This report was verified electronically.
--- NOTE | 2017-12-15 15:22 | RADRPT ---
EXAM DATE/TIME: 12/15/2017 14:02 COMPARISON: MRI BRAIN W & W/O CONTRAST, December 15, 2017, 14:02. INDICATIONS : Cephalgia. CONTRAST: 20 cc Omniscan (gadodiamide) IV MEDICAL HISTORY : Diabetes mellitus type 2. SURGICAL HISTORY : Cholecystectomy. Total knee replacement, left. Total knee replacement, right. IVC filter placement. ENCOUNTER: Initial ACUITY: 1 week PAIN SCORE: 5/10 LOCATION: cranial FINDINGS: The major intracranial venous structures show normal signal. No occlusions or filling defects. Pachio nian granulations noted with transverse sinuses bilaterally. CONCLUSION: Normal exam. Jack Jama Jr., MD on December 15, 2017 at 15:17 Board Certified Radiologist. This report was verified electronically.
[2017-12-15] MEDS ORDERED: BUTA1CAP PO (15:50)
== END 2017-12-15 16:10 | disposition home or self-care (01) ==
LOC: NEPD 10:59
DX: R51 Headache (principal); R42 Dizziness and giddiness; H53.9 Unspecified visual disturbance; D68.59 Other primary thrombophilia; E66.9 Obesity, unspecified; J44.1 Chronic obstructive pulmonary disease with (acute) exacerbation; M19.90 Unspecified osteoarthritis, unspecified site; G47.33 Obstructive sleep apnea (adult) (pediatric); E11.9 Type 2 diabetes mellitus without complications
CPT/HCPCS: 70546; 70553; 96361; 96374; 96375; 96376; 99284; A9579; J0780; J1200; J7030

== ENCOUNTER 2018-08-24 16:38 | Inpatient (IN) ==
[2018-08-24] MEDS ORDERED: Sod Chloride 0.9% Inj 1,000 ML IV.SIG ONE (16:59)
[2018-08-24] MEDS ORDERED: MethylPREDNISolone Sod Succinate Inj 125 MG/2 ML Vial IV.PUSH ONE (17:01)
--- NOTE | 2018-08-24 17:03 | ED ---
HPI General Chief Complaint: Respiratory Symptoms Stated Complaint: Flu Complaint Time Seen by Provider: 08/24/18 16:51 Source: patient, RN notes reviewed and old records reviewed Mode of arrival: ambulatory Limitations: no limitations History of Present Illness 58-year-old female presents to the emergency department for evaluation of shortness of breath. She reports cold symptoms with productive cough for the past week. She states that 3 days ago, she became more short of breath with a productive cough. Patient reports history of JOAQUÍN, T2DM, and COPD. She states she has a history of DVT and currently has an IVC filter. She has been using nebulizers at home with no relief. Patient states she has never been intubated for her COPD before. She does state the last time she was like this, she had to be hospitalized. Patient is not currently on antibiotics or corticosteroids. She reports associated chest tightness. Current pain is 6/ 10. Moderate severity. MD Complaint: Reports shortness of breath, cough and chest pain Onset (ago): day(s) (3) Context: Reports recent illness Severity: moderate Consistency/Duration: constant Relieving factors: bronchodilators Exacerbating factors: nothing Known history of: Reports COPD and DVT; Denies congestive heart failure Associated symptoms: Reports chest pain, fever, cough, wheezing and sputum production; Denies lower extremity pain, hemoptysis, nausea/vomiting, syncope, abdominal pain, dizziness and lightheadedness Treatment prior to arrival: Reports bronchodilator Related Data Home Medications Medication Instructions Recorded Confirmed albuterol sulfate 2.5 mg INHALATION QID 07/03/18 08/24/18 albuterol sulfate [Ventolin HFA] 2 puff INHALATION Q6H PRN 07/03/18 08/24/18 atorvastatin 10 mg PO DAILY 07/03/18 08/24/18 budesonide-formoterol [Symbicort] 2 puff INHALATION Q12H PRN 07/03/18 08/24/18 ipratropium-albuterol 3 ml INHALATION Q6-8H PRN 07/03/18 08/24/18 metformin 1,000 mg PO BID 07/03/18 08/24/18 theophylline 300 mg PO Q24H 07/03/18 08/24/18 Previous Rx's Medication Instructions Recorded methocarbamol [Robaxin] 500 mg PO Q6H PRN #20 tab 07/03/18 Allergies Allergy/AdvReac Type Severity Reaction Status Date / Time peanut Allergy Severe Anaphylaxis Verified 08/24/18 16:47 OMNISCAN /MRI PRECAUTION AdvReac Intermediate pt had Uncoded 08/24/18 16:47 hives after omniscan injection Review of Systems ROS: all other systems reviewed are negative [facility] Medical History Medical History Atrial fibrillation (Acute) Asthma (Acute) COPD (chronic obstructive pulmonary disease) (Acute) DVT (deep venous thrombosis) (Acute) Diabetes (Acute) Diverticulitis (Acute) Osteoarthritis (Acute) Pulmonary emboli (Acute) Sciatic leg pain (Acute) Sleep apnea (Acute) Surgical History Surgical History H/O knee surgery (Acute) H/O laparoscopy (Acute) History of loop recorder (Acute) Hx of cholecystectomy (Acute) Social History Social History Substance History: No History of Abuse Second Hand Smoke Exposure: No Smoking Status: Current every day smoker Tobacco Type: Cigarettes How Often Do You Have a Drink Containing Alcohol: Never Recent Travel in [facility] within the Last 8 Weeks: No Recent Out of Country Travel within the Last 8 Weeks: No Immunization History Tetanus Immunization: <5 Years Exam Narrative Exam Narrative: GENERAL: Well-nourished, well-developed 58-year-old female patient, temp of 100.1. SKIN: Focused skin assessment warm/dry. HEAD: Normocephalic. Atraumatic EYES: No scleral icterus. No injection or drainage. NECK: Supple, trachea midline. No JVD or lymphadenopathy. CARDIOVASCULAR: Regular rate and rhythm without murmurs, gallops, or rubs. RESPIRATORY: Breath sounds equal bilaterally. + accessory muscle use. Lung sounds with expiratory wheezes noted throughout. Patient is tachypneic. GASTROINTESTINAL: Abdomen soft, non-tender, nondistended. MUSCULOSKELETAL: No cyanosis, or edema. BACK: Nontender without obvious deformity. No CVA tenderness. Course Initial Documented Vital Signs Temperature 100.1 F H 08/24/18 16:44 Pulse Rate 96 H 08/24/18 16:44 Respiratory Rate 26 H 08/24/18 16:44 Blood Pressure 120/56 L 08/24/18 16:44 Pulse Oximetry 93 L 08/24/18 16:44 Last Documented Vital Signs Temperature 100.1 F H 08/24/18 16:44 Pulse Rate 87 08/24/18 20:09 Respiratory Rate 25 H 08/24/18 20:09 Blood Pressure 138/60 08/24/18 20:09 Pulse Oximetry 96 08/24/18 22:25 Medical Decision Making MAR Attestation MAR supervised visit: Yes Attestation: I, Dr. Guaman, have reviewed the advance practice practitioner's documentation and am in agreement, met with the patient face to face, made the diagnosis, and the medical decision making was done by me. *My assessment and Findings: Dyspnea and tachypnea here after five nebulizer treatments. O2 sat high 90s on NC. BIPAP started. Admission to [facility]. MDM Narrative Medical decision making narrative: 58-year-old female presents to the emergency department for evaluation of shortness of breath, worse for the past 3 days with known history of COPD. EKG, CBC, CMP, magnesium, CK, troponin, BNP, lactic acid, blood cultures x2, PTT, PT/INR, influenza, chest x-ray ordered and pending. Patient is given albuterol nebulizer x3, Solu-Medrol 125 mg IV, normal saline 1 L IV bolus. EKG shows SR, HR 96. CBC shows leukocytosis of 14.2. CMP shows no acute abnormality. Magnesium is 1.9. CK is 187. Troponin is less than 0.02. BNP is 19. Lactic acid is 1.1. PTT is 28.9. PT/INR is 10.0/1.0. Influenza is negative. Chest x-ray shows no acute infiltrates, mild pulmonary venous congestion. 1849 -still has diffuse wheezing, tachypneic on exam. Patient is given albuterol x2 and will be admitted for observation for COPD exacerbation. My attending physician, Dr. Guaman, examined patient recommends bipap. This is ordered. Medical Screen Exam Complete: Yes Emergency Medical Condition: Yes Differential Diagnosis Differential Diagnosis: COPD exacerbation vs. pneumonia vs. sepsis vs. influenza Medical Records Medical records reviewed: Yes I reviewed the patient's medical records. Lab Data Result diagrams: 08/24/18 17:02 08/24/18 17:02 Lab Results 08/24/18 08/24/18 08/24/18 Range/Units 17:02 17:02 17:02 WBC 14.2 H (4.0-11.0) th/mm3 RBC 5.32 H (4.00-5.30) mil/mm3 Hgb 14.2 (11.6-15.3) gm/dL Hct 43.4 (35.0-46.0) % MCV 81.7 (80.0-100.0) fL MCH 26.7 L (27.0-34.0) pg MCHC 32.7 (32.0-36.0) % RDW 14.3 (11.6-17.2) % Plt Count 315 (150-450) th/mm3 MPV 9.0 (7.0-11.0) fL Neut % (Auto) 76.4 H (16.0-70.0) % Lymph % (Auto) 13.9 (9.0-44.0) % Potter % (Auto) 8.0 (0.0-8.0) % Eos % (Auto) 1.4 (0.0-4.0) % Baso % (Auto) 0.3 (0.0-2.0) % Neut # (Auto) 10.9 H (1.8-7.7) th/mm3 Lymph # (Auto) 2.0 (1.0-4.8) th/mm3 Potter # (Auto) 1.1 H (0.0-0.9) th/mm3 Eos # (Auto) 0.2 (0.0-0.4) th/mm3 Baso # (Auto) 0.0 (0.0-0.2) th/mm3 WBC Differential . Differential Comment Auto diff final PT 10.0 (9.8-11.6) sec INR 1.0 Ratio APTT 28.9 (23.4-31.7) sec Puncture Site Patient Temperature O2 Saturation (90-100) % ABG pH (7.380-7.420) ABG pCO2 (38-42) mmHg ABG pO2 (61-120) mmHg ABG HCO3 (22-26) mmol/L ABG O2 Content (12.0-20.0) Vol % ABG Base Excess (-2-2) mmol/L ABG Methemoglobin (0-2) % Sumanth Test Hemoglobin (12.0-16.0) G/DL Carboxyhemoglobin (0-4) % O2 Delivery Device Vent Setting Inspired O2 % Critical Value Sodium 140 (136-145) meq/L Potassium 4.4 (3.5-5.1) meq/L Chloride 104 (98-107) meq/L Carbon Dioxide 27.6 (21.0-32.0) meq/L Anion Gap 8 (5-15) meq/L BUN 10 (7-18) mg/dL Creatinine 0.75 (0.50-1.00) mg/dL Estimated GFR 80 L (>89) mL/min Random Glucose 115 H (74-106) mg/dL Lactic Acid (0.4-2.0) mmol/L Calcium 8.9 (8.5-10.1) mg/dL Magnesium 1.9 (1.5-2.5) mg/dL Total Bilirubin 0.7 (0.2-1.0) mg/dL AST 25 (15-37) U/L ALT 16 (10-53) U/L Alkaline Phosphatase 109 (45-117) U/L Total Creatine Kinase 187 (26-192) U/L CK-MB (CK-2) Less than 1.0 (0.5-3.6) ng/mL Troponin I Less than 0.02 L (0.02-0.05) ng/mL B-Natriuretic Peptide (0-100) pg/mL Total Protein 8.1 (6.4-8.2) g/dL Albumin 3.2 L (3.4-5.0) g/dL 08/24/18 08/24/18 08/24/18 Range/Units 17:02 17:02 21:45 WBC (4.0-11.0) th/mm3 RBC (4.00-5.30) mil/mm3 Hgb (11.6-15.3) gm/dL Hct (35.0-46.0) % MCV (80.0-100.0) fL MCH (27.0-34.0) pg MCHC (32.0-36.0) % RDW (11.6-17.2) % Plt Count (150-450) th/mm3 MPV (7.0-11.0) fL Neut % (Auto) (16.0-70.0) % Lymph % (Auto) (9.0-44.0) % Potter % (Auto) (0.0-8.0) % Eos % (Auto) (0.0-4.0) % Baso % (Auto) (0.0-2.0) % Neut # (Auto) (1.8-7.7) th/mm3 Lymph # (Auto) (1.0-4.8) th/mm3 Potter # (Auto) (0.0-0.9) th/mm3 Eos # (Auto) (0.0-0.4) th/mm3 Baso # (Auto) (0.0-0.2) th/mm3 WBC Differential Differential Comment PT (9.8-11.6) sec INR Ratio APTT (23.4-31.7) sec Puncture Site Right radial Patient Temperature 98.6 O2 Saturation 94 (90-100) % ABG pH 7.43 H (7.380-7.420) ABG pCO2 38 (38-42) mmHg ABG pO2 86 (61-120) mmHg ABG HCO3 25 (22-26) mmol/L ABG O2 Content 18.5 (12.0-20.0) Vol % ABG Base Excess 0.8 (-2-2) mmol/L ABG Methemoglobin 0.5 (0-2) % Sumanth Test Present Hemoglobin 13.9 (12.0-16.0) G/DL Carboxyhemoglobin 1.9 (0-4) % O2 Delivery Device Bipap Vent Setting Ipap12 epap6 Inspired O2 35 % Critical Value No Sodium (136-145) meq/L Potassium (3.5-5.1) meq/L Chloride (98-107) meq/L Carbon Dioxide (21.0-32.0) meq/L Anion Gap (5-15) meq/L BUN (7-18) mg/dL Creatinine (0.50-1.00) mg/dL Estimated GFR (>89) mL/min Random Glucose (74-106) mg/dL Lactic Acid 1.1 (0.4-2.0) mmol/L Calcium (8.5-10.1) mg/dL Magnesium (1.5-2.5) mg/dL Total Bilirubin (0.2-1.0) mg/dL AST (15-37) U/L ALT (10-53) U/L Alkaline Phosphatase (45-117) U/L Total Creatine Kinase (26-192) U/L CK-MB (CK-2) (0.5-3.6) ng/mL Troponin I (0.02-0.05) ng/mL B-Natriuretic Peptide 19 (0-100) pg/mL Total Protein (6.4-8.2) g/dL Albumin (3.4-5.0) g/dL Imaging Data Radiologist's impression: Chest X-Ray 08/24/18 16:59 CONCLUSION: No acute infiltrates. Mild pulmonary venous congestion.. Discharge Plan Discharge Disposition Patient Disposition: ED Admit(ED Internal Use Only) Discharge Order Discharge Orders: ED Use Only Admit Order (Routine); Ordered 08/24/18 Ordered By: Sonia Murray Discharge Details Diagnosis: COPD exacerbation Physicians Team ED Provider: Harshad Guaman ED Midlevel Provider: Sonia Murray Attending Provider: Lanre Fuentes Other Providers: Ajit Fong Status ED Status: Left Department Discharge Information Discharge Date/Time: 08/24/18 22:38
[2018-08-24 17:27] LABS: Baso % (Auto) 0.3 % (0.0-2.0); Eos # (Auto) 0.2 th/mm3 (0.0-0.4); Eos % (Auto) 1.4 % (0.0-4.0); Hematocrit 43.4 % (35.0-46.0); Hemoglobin 14.2 gm/dL (11.6-15.3); Lymph % (Auto) 13.9 % (9.0-44.0); Mean Corpuscular HGB Conc 32.7 % (32.0-36.0); Mean Corpuscular Hemoglobin 26.7 pg (27.0-34.0); Mean Corpuscular Volume 81.7 fL (80.0-100.0); Mono # (Auto) 1.1 th/mm3 (0.0-0.9); Neut # (Auto) 10.9 th/mm3 (1.8-7.7); Neut % (Auto) 76.4 % (16.0-70.0); Platelet Count 315 th/mm3 (150-450); Red Blood Count 5.32 mil/mm3 (4.00-5.30); Red Cell Distribution Width 14.3 % (11.6-17.2); White Blood Count 14.2 th/mm3 (4.0-11.0)
[2018-08-24 17:37] LABS: Activated Partial Thrombo Time 28.9 sec (23.4-31.7)
--- NOTE | 2018-08-24 17:44 | XR ---
EXAM DATE: 08/24/2018 5:41 PM EST AGE/SEX: 58 years / Female INDICATIONS: Shortness of breath. CLINICAL DATA: This is the patient's initial encounter. Patient reports that signs and symptoms have been present for 1 day and indicates a pain score of 0/10. MEDICAL/SURGICAL HISTORY: . Loop recorder None. COMPARISON: [facility] [place], CHEST PA & LAT, 12/08/2017. . FINDINGS: A single AP view of the chest demonstrates the lungs to be symmetrically aerated without evidence of mass, infiltrate or effusion. There is some mild prominence of the pulmonary vasculature. The cardio mediastinal contours are unremarkable. Osseous structures are intact. Otherwise, no significant tiny nge compared to the prior study. CONCLUSION: No acute infiltrates. Mild pulmonary venous congestion.. Electronically signed by: Yohan Mcgee MD Board Certified Radiologist 08/24/2018 5:43 PM EST
[2018-08-24 17:47] LABS: Alanine Aminotransferase 16 U/L (10-53)
[2018-08-24 17:51] LABS: Albumin 3.2 g/dL (3.4-5.0); Alkaline Phosphatase 109 U/L (45-117); Anion Gap 8 meq/L (5-15); Aspartate Aminotransferase 25 U/L (15-37); Blood Urea Nitrogen 10 mg/dL (7-18); Calcium 8.9 mg/dL (8.5-10.1); Carbon Dioxide 27.6 meq/L (21.0-32.0); Chloride 104 meq/L (98-107); Creatine Kinase 187 U/L (26-192); Glomerular Filtration Rate 80 mL/min (>89); Glucose,Random 115 mg/dL (74-106); Magnesium 1.9 mg/dL (1.5-2.5); Sodium 140 meq/L (136-145); Total Protein 8.1 g/dL (6.4-8.2)
[2018-08-24 17:53] LABS: Potassium 4.4 meq/L (3.5-5.1)
[2018-08-24] MEDS ORDERED: Azithromycin Inj 500 MG in Sodium Chlor 0.9% Inj 250 ML IV.SIG ONE (20:07)
[2018-08-24] MEDS ORDERED: Bisacodyl 10 MG Supp RECTAL PRN (20:12)
[2018-08-24] MEDS: MethylPREDNISolone Sod Succinate Inj 125 MG/2 ML Vial IV.PUSH SCH (21:16)
[2018-08-24 22:01] LABS: ABG Base Excess 0.8 mmol/L (-2-2); ABG PCO2 38 mmHg (38-42); ABG PO2 86 mmHg (61-120)
[2018-08-25] MEDS: MethylPREDNISolone Sod Succinate Inj 125 MG/2 ML Vial IV.PUSH SCH ×4 (03:40→20:53)
[2018-08-25 05:46] LABS: Baso % (Auto) 0.1 % (0.0-2.0); Hematocrit 40.1 % (35.0-46.0); Hemoglobin 13.4 gm/dL (11.6-15.3); Lymph % (Auto) 7.1 % (9.0-44.0); Mean Corpuscular HGB Conc 33.5 % (32.0-36.0); Mean Corpuscular Hemoglobin 27.1 pg (27.0-34.0); Mean Corpuscular Volume 80.7 fL (80.0-100.0); Mean Platelet Volume 8.8 fL (7.0-11.0); Mono # (Auto) 0.2 th/mm3 (0.0-0.9); Mono % (Auto) 1.3 % (0.0-8.0); Neut # (Auto) 13.1 th/mm3 (1.8-7.7); Neut % (Auto) 91.5 % (16.0-70.0); Platelet Count 287 th/mm3 (150-450); Red Blood Count 4.96 mil/mm3 (4.00-5.30); White Blood Count 14.3 th/mm3 (4.0-11.0)
[2018-08-25 06:08] LABS: Albumin 3.2 g/dL (3.4-5.0); Anion Gap 8 meq/L (5-15); Aspartate Aminotransferase 13 U/L (15-37); Blood Urea Nitrogen 11 mg/dL (7-18); Calcium 8.8 mg/dL (8.5-10.1); Carbon Dioxide 25.9 meq/L (21.0-32.0); Chloride 105 meq/L (98-107); Glomerular Filtration Rate Greater Than 89 mL/min (>89); Glucose,Random 158 mg/dL (74-106); Potassium 4.2 meq/L (3.5-5.1); Sodium 139 meq/L (136-145)
[2018-08-25 06:10] LABS: Alanine Aminotransferase 15 U/L (10-53)
[2018-08-25 06:11] LABS: Alkaline Phosphatase 102 U/L (45-117); Total Protein 7.9 g/dL (6.4-8.2)
[2018-08-25] MEDS ORDERED: Budesonide-Formoterol 160/4.5 MCG 6 GM Inhaler INH PRN (06:24)
[2018-08-25] MEDS ORDERED: Dextrose 50% in Water 50 ML Vial IV.PUSH PRN (06:25)
--- NOTE | 2018-08-25 06:27 | P.HPIM ---
History of Present Illness Primary Care Physician: Lit Grossman History of Present Illness: 58-year-old female with history of obstructive sleep apnea, diabetes, COPD who presents with a one-week history of progressively worsening shortness of breath , productive cough. She says her illness started with cold-like symptoms, sore throat, runny nose, cough which worsened to the point where she could hardly breathe. Patient received steroids and duo nebs in the ER and is much better. Had initially been placed on BiPAP but this is now been removed. Patient also reports subjective fevers at home, and temperature is 100.1 here Inpatient Certification: I certify that the inpatient services were ordered in accordance with Medicare regulations governing the order. This includes certification that hospital inpatient services are reasonable and necessary and in the case of services not specified as inpatient-only under 42 CFR 419.22(n), that they are appropriately provided as inpatient services in accordance to with the 2-midnight benchmark under 43 CFR 412.3(e) Estimated Total Length of Stay (Days): 2 Plans for Post Hospital Care: Not yet determined Review of Systems All other systems reviewed negative except as stated in HPI PMFSH - History History Provided By: Patient - Medical History Medical History: Medical History (Last Reviewed 08/25/18 @ 06:19 by Lanre Fuentes MD) Atrial fibrillation Asthma COPD (chronic obstructive pulmonary disease) DVT (deep venous thrombosis) Diabetes Diverticulitis Osteoarthritis Pulmonary emboli Sciatic leg pain Sleep apnea - Surgical History Surgical History: Surgical History (Last Reviewed 08/25/18 @ 06:19 by Lanre Fuentes MD) H/O knee surgery H/O laparoscopy History of loop recorder Hx of cholecystectomy - Family History Family History: Family History (Last Updated 08/25/18 @ 06:20 by Lanre Fuentes MD) Father Cancer Mother Heart disease - Tobacco History Second Hand Smoke Exposure: No Tobacco Use In Past 30 Days: Yes Smoking Status: Current every day smoker Tobacco Type: Cigarettes - Alcohol History How Often Do You Have a Drink Containing Alcohol: Never - Substance Use History Substance History: No History of Abuse - Travel History Recent Travel in the [place] Within the Last 8 Weeks: No Recent Travel Out of the Country Within the Last 8 Weeks: No - Immunization History Tetanus Immunization: <5 Years Hx Influenza Vaccine This Season: Yes Medications and Allergies Active Medications: Active Medications Acetaminophen (Tylenol) 650 mg PO Q4H PRN PRN Reason: Temp > 100.4 Al Hydroxide/Mg Hydroxide (Milk Of Magnesia Liq) 30 ml PO Q12H PRN PRN Reason: Mild Constipation Albuterol (Albuterol Neb (Prn)) 2.5 mg NEB Q2HR NEB PRN PRN Reason: SHORTNESS OF BREATH Albuterol (Duoneb Neb (Lucia)) 1 ampul NEB Q4HR NEB [facility] Last Admin: 08/25/18 05:11 Dose: 1 ampul Azithromycin (Zithromax) 500 mg PO DAILY [facility] Stop: 08/27/18 09:01 Bisacodyl (Dulcolax Supp) 10 mg RECTAL DAILY PRN PRN Reason: SEVERE CONSITIPATION Lactulose (Lactulose Liq) 30 ml PO DAILY PRN PRN Reason: SEVERE CONSITIPATION Methylprednisolone Sodium Succinate (Solumedrol Inj) 60 mg IV.PUSH Q6H [facility] Last Admin: 08/25/18 03:40 Dose: 60 mg Ondansetron HCl (Zofran Inj) 4 mg IV.PUSH Q6H PRN PRN Reason: NAUSEA OR VOMITING Sennosides (Senokot) 17.2 mg PO Q12H PRN PRN Reason: Moderate Constipation Sodium Chloride (Ns Flush) 2 ml IV.FLUSH BID [facility] Last Admin: 08/24/18 20:55 Dose: Not Given Sodium Chloride (Ns Flush) 2 ml IV.FLUSH PRN PRN PRN Reason: FLUSH AFTER USING IV ACCESS Allergies Allergy/AdvReac Type Severity Reaction Status Date / Time peanut Allergy Severe Anaphylaxis Verified 08/24/18 16:47 OMNISCAN /MRI PRECAUTION AdvReac Intermediate pt had Uncoded 08/24/18 16:47 hives after omniscan injection Home Medications Medication Instructions Recorded Confirmed Type albuterol sulfate 2.5 mg INHALATION QID 07/03/18 08/24/18 History albuterol sulfate [Ventolin HFA] 2 puff INHALATION Q6H PRN 07/03/18 08/24/18 History atorvastatin 10 mg PO DAILY 07/03/18 08/24/18 History budesonide-formoterol [Symbicort] 2 puff INHALATION Q12H PRN 07/03/18 08/24/18 History ipratropium-albuterol 3 ml INHALATION Q6-8H PRN 07/03/18 08/24/18 History metformin 1,000 mg PO BID 07/03/18 08/24/18 History theophylline 300 mg PO Q24H 07/03/18 08/24/18 History Exam Vital signs: Vital Signs 08/24/18 16:44 08/24/18 16:57 08/24/18 16:59 Temperature 100.1 F H Pulse Rate 96 H 90 Respiratory Rate 26 H 17 Blood Pressure 120/56 L 126/80 Pulse Oximetry 93 L 97 96 08/24/18 17:44 08/24/18 18:55 08/24/18 19:25 Temperature Pulse Rate 85 79 84 Respiratory Rate 18 18 22 Blood Pressure 144/66 H Pulse Oximetry 99 08/24/18 20:00 08/24/18 20:09 08/24/18 22:05 Temperature Pulse Rate 87 Respiratory Rate 25 H Blood Pressure 138/60 Pulse Oximetry 97 97 96 08/24/18 22:25 08/24/18 23:00 08/25/18 00:00 Temperature 98.3 F Pulse Rate 72 73 Respiratory Rate 16 16 Blood Pressure 111/51 L 98/62 L Pulse Oximetry 96 97 95 08/25/18 00:26 08/25/18 00:27 08/25/18 01:00 Temperature Pulse Rate 67 83 Respiratory Rate 20 21 Blood Pressure 139/63 Pulse Oximetry 100 98 08/25/18 01:39 08/25/18 02:00 08/25/18 04:00 Temperature 98.0 F Pulse Rate 82 67 Respiratory Rate 26 H 18 Blood Pressure 105/57 L 113/65 Pulse Oximetry 92 L 97 95 08/25/18 05:08 08/25/18 05:13 08/25/18 06:00 Temperature Pulse Rate 65 71 Respiratory Rate 18 Blood Pressure Pulse Oximetry 97 Intake & Output 08/24/18 08/24/18 08/25/18 06:59 18:59 06:59 Intake Total 1730 / 1730 Balance 1730 / 1730 Weight 149.685 kg 142.7 kg Intake: IV 1250 / 1250 Azithromycin Inj 500 MG In NS 250 / 250 Inj 250 ML @ 250 mls/hr IV.SIG ONCE ONE Rx#:[id number] NS Inj 1,000 ML @ Wide Open IV. 1000 / 1000 SIG BOLUS ONE Rx#:[id number] Oral 480 / 480 Other: # Voids 4 # Incontinent Voids 2 Date of Last Bowel Movement 08/22/18 Weight On Admission 142.7 kg Narrative: GENERAL: Patient lying in bed sleeping. Wakes up for exam. She is alert and oriented x3. SKIN: Warm and dry. HEAD: Atraumatic. Normocephalic. EYES: Pupils equal and round. No scleral icterus. No injection or drainage. ENT: No nasal bleeding or discharge. Mucous membranes pink and moist. NECK: Trachea midline. No JVD. CARDIOVASCULAR: Regular rate and rhythm. RESPIRATORY: No accessory muscle use. Distant breath sounds secondary to body habitus. Slight wheezing bilaterally. Breath sounds equal bilaterally. GASTROINTESTINAL: Abdomen soft, non-tender, nondistended. Hepatic and splenic margins not palpable. MUSCULOSKELETAL: Extremities without clubbing, cyanosis, or edema. No obvious deformities. NEUROLOGICAL: Awake and alert. No obvious cranial nerve deficits. Motor grossly within normal limits. Five out of 5 muscle strength in the arms and legs. Normal speech. PSYCHIATRIC: Appropriate mood and affect; insight and judgment normal. Results - Labs CBC & Chem 7: 08/25/18 05:22 08/25/18 05:22 Labs: Short CBC 08/24/18 08/25/18 Range/Units 17:02 05:22 WBC 14.2 H 14.3 H (4.0-11.0) th/mm3 Hgb 14.2 13.4 (11.6-15.3) gm/dL Hct 43.4 40.1 (35.0-46.0) % Plt Count 315 287 (150-450) th/mm3 [facility] 08/24/18 08/25/18 17:02 05:22 Sodium 140 139 Potassium 4.4 4.2 Chloride 104 105 Carbon Dioxide 27.6 25.9 BUN 10 11 Creatinine 0.75 0.63 Calcium 8.9 8.8 Cardiac Enzymes 08/24/18 Range/Units 17:02 Total Creatine Kinase 187 (26-192) U/L CK-MB (CK-2) Less than 1.0 (0.5-3.6) ng/mL Troponin I Less than 0.02 L (0.02-0.05) ng/mL Liver Function 08/24/18 08/25/18 Range/Units 17:02 05:22 Total Bilirubin 0.7 0.6 (0.2-1.0) mg/dL AST 25 13 L (15-37) U/L ALT 16 15 (10-53) U/L Alkaline Phosphatase 109 102 (45-117) U/L Albumin 3.2 L 3.2 L (3.4-5.0) g/dL - Imaging Impressions Chest X-Ray 08/24/18 16:59 CONCLUSION: No acute infiltrates. Mild pulmonary venous congestion.. Caprini VTE Risk Assessment Caprini VTE Risk Assessment: No/Low Risk (score <= 1) Caprini Risk Assessment Model: Point Value = 1 Point Value = 2 Point Value = 3 Point Value = 5 Age 41-60 Minor surgery BMI > 25 kg/m2 Swollen legs Varicose veins or History of unexplained or recurrent spontaneous Oral contraceptives or hormone replacement Sepsis (< 1 month) Serious lung disease, including pneumonia (< 1 month) Abnormal pulmonary function Acute myocardial infarction Congestive heart failure (< 1 month) History of inflammatory bowel disease Medical patient at bed rest Age 61-74 Arthroscopic surgery Major open surgery (> 45 min) Laparoscopic surgery (> 45 min) Malignancy Confined to bed (> 72 hours) Immobilizing plaster cast Central venous access Age >= 75 History of VTE Family history of VTE Factor V Leiden Prothrombin [id number] Lupus anticoagulant Anticardiolipin antibodies Elevated serum homocysteine Heparin-induced thrombocytopenia Other congenital or acquired thrombophilia Stroke (< 1 month) Elective arthroplasty Hip, pelvis, or leg fracture Acute spinal cord injury (< 1 month) Prophylaxis Regimen: Total Risk Factor Score Risk Level Prophylaxis Regimen 0-1 Low Early ambulation 2 Moderate Order ONE of the following: *Sequential Compression Device (SCD) *Heparin 5000 units SQ BID 3-4 Higher Order ONE of the following medications: *Heparin 5000 units SQ TID *Enoxaparin/Lovenox 40 mg SQ daily (WT < 150 kg, CrCl > 30 mL/min) *Enoxaparin/Lovenox 30 mg SQ daily (WT < 150 kg, CrCl > 10-29 mL/min) *Enoxaparin/Lovenox 30 mg SQ BID (WT < 150 kg, CrCl > 30 mL/min) AND/OR *Sequential Compression Device (SCD) 5 or more Highest Order ONE of the following medications: *Heparin 5000 units SQ TID (Preferred with Epidurals) *Enoxaparin/Lovenox 40 mg SQ daily (WT < 150 kg, CrCl > 30 mL/min) *Enoxaparin/Lovenox 30 mg SQ daily (WT < 150 kg, CrCl > 10-29 mL/min) *Enoxaparin/Lovenox 30 mg SQ BID (WT < 150 kg, CrCl > 30 mL/min) AND *Sequential Compression Device (SCD) Assessment and Plan - Plan //Acute COPD exacerbation Chest x-ray with no acute findings Started on a azithromycin, Solu-Medrol, duo nebs with improvement -Check theophylline level. Follow-up clinical status //Obstructive sleep apnea. Will order CPAP here. Have advised patient to have her own CPAP brought in from home. //Diabetes mellitus. Insulin sliding scale and diabetic diet. Discussed Condition With: Patient, nurse, ED physician. H&P: Quality - VTE Deep Vein Thrombosis/Pulmonary Embolism Present on Admission: No
[2018-08-25] MEDS ORDERED: THEOPHYLLINE 300 MG PO SCH (06:30)
[2018-08-25] MEDS: Insulin NovoLOG Aspart Correctional Sugar Inj SQ SCH ×4 (07:44→20:53)
[2018-08-25] MEDS: Azithromycin 250 MG Tablet PO SCH (08:04)
--- NOTE | 2018-08-25 10:20 | ECG ---
Date Performed: 08/24/2018 Time Performed: 17:32:19 PTAGE: 58 years EKG: Sinus rhythm WITH OCCASIONAL SUPRAVENTRICULAR PREMATURE COMPLEXES BORDERLINE ECG Since the PREVIOUS TRACING , no significant change noted PREVIOUS TRACIN12/08/2017 14.56 DOCTOR: Lit Castillo Interpretating Date/Time 08/25/2018 10:20:01
[2018-08-25] MEDS: Theophylline ER 24 HR 100 MG Capsule PO SCH (11:02)
--- NOTE | 2018-08-25 12:03 | P.PNIM ---
Subjective Interval history: Patient seen and evaluated splinted bedside. Patient reports that she has been feeling better but has been sick for the previous week prior to presentation to the hospital. Patient reports that using her inhaler did not help propping her to come to the emergency department. Currently patient says that she is doing better. No subjective fever or chills. No sore throat. Physical Exam Vital signs: Last Vital Signs Temp 98.0 F 08/25/18 04:00 Pulse 67 08/25/18 10:00 Resp 16 08/25/18 08:57 BP 116/58 L 08/25/18 08:00 Pulse Ox 95 08/25/18 08:57 Intake & Output 08/23/18 08/24/18 08/25/18 08/26/18 06:59 06:59 06:59 06:59 Intake Total 1730 / 1730 Balance 1730 / 1730 Weight 142.7 kg Gen: NAD, obese heent: eomi cvs: s1/s2 resp: CTA without wheezing appreciated. no intercostal muscle used gi: soft, non tender, non distended ext: no edema or calf tenderness Results Labs CBC & Chem 7: 08/25/18 05:22 08/25/18 05:22 Labs: Microbiology 08/24/18 17:12 Blood - Peripheral Aerobic Blood Culture - Preliminary No growth in 1 day 08/24/18 17:12 Blood - Peripheral Anaerobic Blood Culture - Preliminary No growth in 1 day 08/24/18 17:02 Blood - Peripheral Aerobic Blood Culture - Preliminary No growth in 1 day 08/24/18 17:02 Blood - Peripheral Anaerobic Blood Culture - Preliminary No growth in 1 day 08/24/18 17:00 Nasal Wash Influenza Types A,B Antigen - Final Negative for FLU A and B antigen Infection due to influenza A or B cannot be ruled out since the antigen present in the sample may be below the detection limit of the test. Imaging Imaging: Impressions Chest X-Ray 08/24/18 16:59 CONCLUSION: No acute infiltrates. Mild pulmonary venous congestion.. Assessment and Plan Plan Patient is a 58-year-old female with past medical history of asthma presenting with shortness of breath found to have asthma exacerbation Pulmonary: Asthma exacerbation, JOAQUÍN Continue azithromycin Continue steroids and down titrate based on physical exam findings. Attempt to down titrate on 08/26 Continue nebulizer therapy as needed IV magnesium to prevent bronchospasm Nocturnal BiPAP. Patient to bring in her own machine Continue Symbicort Continue insulin sliding scale while on steroids AB05/05 CODE STATUS: Full code DVT prophylaxis: SCD Disposition: Medical surgery unit Progress Note: Quality VTE Deep Vein Thrombosis/Pulmonary Embolism Present on Admission: No
[2018-08-25] MEDS ORDERED: Mag Sulf/Water 40 gm/1000 ml 40 GM/1,000 ML BAG IV.CONT ONE (14:17)
[2018-08-25] MEDS ORDERED: Mag Sulf 1 gm/100 ml Premix 100 ML IV.SIG ONE (15:00)
--- NOTE | 2018-08-25 15:34 | MB ---
cc: Ajit Fong MD DATE: 08/24/2018 REASON FOR CONSULTATION: COPD exacerbation. HISTORY OF PRESENT ILLNESS: Mrs. Quiroz is a 58-year-old female with a known history of COPD and obstructive sleep apnea, on CPAP therapy at home. Admitted with increasing shortness of breath, wheezing, cough, expectoration of whitish mucoid sputum for several days after "she had a cold." The patient denies history of fever or chills. No hemoptysis. No TB, no industrial exposure. PAST MEDICAL HISTORY: 1. COPD. 2. Obstructive sleep apnea, on CPAP. 3. Diabetes mellitus. 4. History of pulmonary embolism. 5. Diverticular disease. 6. Degenerative joint disease. PAST SURGICAL HISTORY: Previous knee surgery, cholecystectomy. FAMILY HISTORY: Noncontributory. SOCIAL HISTORY: Over [id number] smoking history, continues to smoke. Does not drink any alcohol. No TB, no industrial exposure. Does not use drugs. MEDICATIONS: Include: 1. Nebulized albuterol. 2. Ipratropium. 3. Zithromax. 4. Ceftriaxone. 5. Solu-Medrol intravenous. 6. Oral theophylline. ALLERGIES: PEANUTS. REVIEW OF SYSTEMS: A 12-point review of systems as per HPI and past history, otherwise negative. PHYSICAL EXAMINATION: VITAL SIGNS: Temperature max 100, respirations 20, blood pressure 120/60, pulse 86, oxygen saturation 96% on O2 via nasal cannula. HEENT: Unremarkable. Eyes without icterus. NECK: Without adenopathy or thyroid enlargement. CHEST: Scattered rhonchi, wheeze bilaterally. CARDIAC: PMI not appreciated. S1, S2 audible. No murmur. No rub. ABDOMEN: Lax, bowel sounds audible. EXTREMITIES: No clubbing, cyanosis, edema. LABORATORY DATA: White count 14,000, hemoglobin 13, hematocrit 40, platelets 287,000. Sodium 139, potassium 4.2, BUN 11, creatinine 0.6. Chest x-ray, no acute infiltrate. IMPRESSION: 1. COPD exacerbation. 2. Obstructive sleep apnea, on PAP therapy. 3. History of deep venous thrombosis, pulmonary embolus. 4. Diverticular disease. 5. Degenerative joint disease. PLAN: 1. The patient will be maintained on oxygen therapy as needed. 2. Bronchodilator therapy, antibiotic therapy, steroid therapy will be continued. 3. Continue nebulized albuterol and ipratropium. Follow patient's course closely, once able changed to oral therapy. Will obtain a baseline pulmonary function when the patient improves. Followup her course along with you and, depending on progress, proceed further. I do thank you for asking me to partake in Ms. Quiroz' care. Ajit Fong MD WWW/ , 02:46 PM , 02:55 PM
[2018-08-26] MEDS: MethylPREDNISolone Sod Succinate Inj 125 MG/2 ML Vial IV.PUSH SCH ×4 (05:01→22:02)
[2018-08-26 07:36] LABS: Hematocrit 40.9 % (35.0-46.0); Hemoglobin 13.5 gm/dL (11.6-15.3); Mean Corpuscular Volume 81.7 fL (80.0-100.0); Mean Platelet Volume 9.2 fL (7.0-11.0); Platelet Count 304 th/mm3 (150-450); Red Blood Count 5.01 mil/mm3 (4.00-5.30); White Blood Count 24.5 th/mm3 (4.0-11.0)
[2018-08-26 08:00] LABS: Calcium 8.7 mg/dL (8.5-10.1); Carbon Dioxide 26.8 meq/L (21.0-32.0); Potassium 4.4 meq/L (3.5-5.1)
[2018-08-26] MEDS: Theophylline ER 24 HR 100 MG Capsule PO SCH (08:00)
[2018-08-26] MEDS: Azithromycin 250 MG Tablet PO SCH (08:03)
[2018-08-26] MEDS: Insulin NovoLOG Aspart Correctional Sugar Inj SQ SCH ×4 (08:04→22:02)
--- NOTE | 2018-08-26 08:40 | P.PNIM ---
Subjective Interval history: Patient seen and examined this morning at her bedside Patient just started nebulizer treatment for wheezing with some rhonchi as per nursing Patient confirms wheezing but denied active SOB and says she has been ambulatory No subjective fever or chills noted Tolerated PO Pulmonary input appreciated Physical Exam Vital signs: Last Vital Signs Temp 98.2 F 08/26/18 04:00 Pulse 69 08/26/18 08:27 Resp 14 08/26/18 08:27 BP 142/87 H 08/26/18 04:00 Pulse Ox 97 08/26/18 08:00 Intake & Output 08/24/18 08/25/18 08/26/18 08/27/18 06:59 06:59 06:59 06:59 Intake Total 1730 / 1730 1540 / 1540 Output Total 2400 / 2400 Balance 1730 / 1730 -860 / -860 Weight 142.7 kg 145 kg gen: NAD heent: eomi cvs: s1/s2 resp: Rhonchi w/ wheezing bilaterally. no intercostal muscle use gi: soft, non tender, non dsitended, no guarding or rebound ext: no edema or calf tenderness ortho: RIGHT vertical scar s/p surgery (c/d/i) Results Labs CBC & Chem 7: 08/26/18 06:32 08/26/18 06:32 Labs: Microbiology 08/24/18 17:12 Blood - Peripheral Aerobic Blood Culture - Preliminary No growth in 1 day 08/24/18 17:12 Blood - Peripheral Anaerobic Blood Culture - Preliminary No growth in 1 day 08/24/18 17:02 Blood - Peripheral Aerobic Blood Culture - Preliminary No growth in 1 day 08/24/18 17:02 Blood - Peripheral Anaerobic Blood Culture - Preliminary No growth in 1 day Assessment and Plan Plan Patient is a 58-year-old female with past medical history of asthma presenting with shortness of breath found to have asthma exacerbation Pulmonary: Asthma exacerbation, JOAQUÍN Continue azithromycin Continue steroids and down titrate to q8hrs Continue nebulizer therapy as needed Nocturnal BiPAP. Continue Symbicort Continue insulin sliding scale while on steroids. Inpatient goal less than 200 while on steroids IV AB.43/30 05/05 - smoking cessation encouraged. Patient has 2 sons who smoke in the home ( likely trigger for exacerbation) CODE STATUS: Full code DVT prophylaxis: SCD Disposition: Medical surgery unit Progress Note: Quality VTE Deep Vein Thrombosis/Pulmonary Embolism Present on Admission: No
--- NOTE | 2018-08-26 15:30 | P.PN ---
Subjective Interval history: alert still sob but less Physical Exam Vital signs: Vital Signs 08/25/18 16:00 08/25/18 16:11 08/25/18 17:39 Temperature Pulse Rate 68 73 78 Respiratory Rate 16 Blood Pressure Pulse Oximetry 08/25/18 18:15 08/25/18 19:00 08/25/18 20:00 Temperature 98.6 F 97.9 F Pulse Rate 94 H 78 78 Respiratory Rate 24 24 Blood Pressure 145/82 H 110/64 Pulse Oximetry 96 96 08/25/18 21:00 08/25/18 22:00 08/25/18 23:00 Temperature Pulse Rate 68 78 87 Respiratory Rate Blood Pressure Pulse Oximetry 96 08/26/18 00:00 08/26/18 01:00 08/26/18 02:00 Temperature Pulse Rate 70 70 73 Respiratory Rate 22 Blood Pressure 121/72 Pulse Oximetry 95 08/26/18 03:00 08/26/18 04:00 08/26/18 05:00 Temperature 98.2 F Pulse Rate 66 66 88 Respiratory Rate 26 H Blood Pressure 142/87 H Pulse Oximetry 96 08/26/18 06:00 08/26/18 07:00 08/26/18 08:00 Temperature 98.2 F Pulse Rate 71 75 75 Respiratory Rate 24 Blood Pressure 121/74 Pulse Oximetry 95 08/26/18 08:27 08/26/18 09:00 08/26/18 09:55 Temperature Pulse Rate 69 86 98 H Respiratory Rate 14 Blood Pressure Pulse Oximetry 08/26/18 11:00 08/26/18 11:37 08/26/18 12:00 Temperature 98.1 F Pulse Rate 73 72 73 Respiratory Rate 16 20 Blood Pressure 130/85 Pulse Oximetry 96 08/26/18 12:34 08/26/18 14:00 08/26/18 14:38 Temperature Pulse Rate 84 108 H 106 H Respiratory Rate Blood Pressure Pulse Oximetry Intake & Output 08/25/18 08/26/18 08/26/18 18:59 06:59 18:59 Intake Total 100 / 100 1440 / 1440 Output Total 2400 / 2400 Balance 100 / 100 -960 / -960 Weight 145 kg Intake: IV 100 / 100 Magnesium Sulfate 1 gm/D5W 100 100 / 100 ml Premix 100 ML @ 100 mls/hr IV.SIG ONCE ONE Rx#:[id number] Oral 1440 / 1440 Output: Urine 2400 / 2400 Other: Date of Last Bowel Movement 08/22/18 08/22/18 08/22/18 Narrative: GENERAL: Patient lying in bed sleeping. Wakes up for exam. She is alert and oriented x3. SKIN: Warm and dry. HEAD: Atraumatic. Normocephalic. EYES: Pupils equal and round. No scleral icterus. No injection or drainage. ENT: No nasal bleeding or discharge. Mucous membranes pink and moist. NECK: Trachea midline. No JVD. CARDIOVASCULAR: Regular rate and rhythm. RESPIRATORY: No accessory muscle use. Distant breath sounds secondary to body habitus. Slight wheezing bilaterally. Breath sounds equal bilaterally. GASTROINTESTINAL: Abdomen soft, non-tender, nondistended. Hepatic and splenic margins not palpable. MUSCULOSKELETAL: Extremities without clubbing, cyanosis, or edema. No obvious deformities. NEUROLOGICAL: Awake and alert. No obvious cranial nerve deficits. Motor grossly within normal limits. Five out of 5 muscle strength in the arms and legs. Normal speech. PSYCHIATRIC: Appropriate mood and affect; insight and judgment normal. Results - Labs CBC & Chem 7: 08/26/18 06:32 08/26/18 06:32 Laboratory Results - last 24 hr 08/25/18 08/25/18 08/26/18 16:37 20:49 06:32 WBC RBC Hgb Hct MCV MCH MCHC RDW Plt Count MPV Sodium Potassium Chloride Carbon Dioxide Anion Gap BUN Creatinine Estimated GFR POC Glucose 162 H 179 H Random Glucose Calcium Magnesium 2.4 08/26/18 08/26/18 08/26/18 06:32 06:32 07:52 WBC 24.5 H RBC 5.01 Hgb 13.5 Hct 40.9 MCV 81.7 MCH 27.0 MCHC 33.0 RDW 14.0 Plt Count 304 MPV 9.2 Sodium 140 Potassium 4.4 Chloride 106 Carbon Dioxide 26.8 Anion Gap 7 BUN 18 Creatinine 0.75 Estimated GFR 80 L POC Glucose 162 H Random Glucose 148 H Calcium 8.7 Magnesium 08/26/18 11:10 WBC RBC Hgb Hct MCV MCH MCHC RDW Plt Count MPV Sodium Potassium Chloride Carbon Dioxide Anion Gap BUN Creatinine Estimated GFR POC Glucose 163 H Random Glucose Calcium Magnesium Microbiology 08/24/18 17:12 Blood - Peripheral Aerobic Blood Culture - Preliminary No growth in 2 days 08/24/18 17:12 Blood - Peripheral Anaerobic Blood Culture - Preliminary No growth in 2 days 08/24/18 17:02 Blood - Peripheral Aerobic Blood Culture - Preliminary No growth in 2 days 08/24/18 17:02 Blood - Peripheral Anaerobic Blood Culture - Preliminary No growth in 2 days Assessment and Plan - Plan copd exacerbation JOAQUÍN PLAN O2 NEEDED BRONCHODILATORS INCREASE ACTIVITY
[2018-08-26] MEDS: Benzonatate 100 MG Capsule PO PRN (22:02)
[2018-08-27] MEDS: Benzonatate 100 MG Capsule PO PRN ×2 (05:53→12:59)
[2018-08-27] MEDS: MethylPREDNISolone Sod Succinate Inj 125 MG/2 ML Vial IV.PUSH SCH ×3 (05:53→21:19)
[2018-08-27] MEDS ORDERED: guaiFENesin/Codeine Syrup 200 MG/20 MG 10 ML UDC PO ONE (07:00)
[2018-08-27 07:33] LABS: Hematocrit 39.8 % (35.0-46.0); Hemoglobin 13.2 gm/dL (11.6-15.3); Mean Corpuscular HGB Conc 33.1 % (32.0-36.0); Mean Corpuscular Hemoglobin 26.8 pg (27.0-34.0); Mean Corpuscular Volume 81.1 fL (80.0-100.0); Mean Platelet Volume 9.1 fL (7.0-11.0); Platelet Count 307 th/mm3 (150-450); Red Blood Count 4.91 mil/mm3 (4.00-5.30); Red Cell Distribution Width 14.1 % (11.6-17.2); White Blood Count 20.2 th/mm3 (4.0-11.0)
[2018-08-27 07:59] LABS: Anion Gap 9 meq/L (5-15); Blood Urea Nitrogen 17 mg/dL (7-18); Calcium 8.4 mg/dL (8.5-10.1); Carbon Dioxide 25.8 meq/L (21.0-32.0); Chloride 106 meq/L (98-107); Glomerular Filtration Rate Greater Than 89 mL/min (>89); Glucose,Random 145 mg/dL (74-106); Magnesium 2.3 mg/dL (1.5-2.5); Sodium 141 meq/L (136-145)
[2018-08-27] MEDS: Theophylline ER 24 HR 100 MG Capsule PO SCH (09:04)
[2018-08-27] MEDS: Azithromycin 250 MG Tablet PO SCH (09:04)
[2018-08-27] MEDS: Insulin NovoLOG Aspart Correctional Sugar Inj SQ SCH ×4 (09:12→20:32)
[2018-08-27] MEDS: Acetaminophen 325 MG Tablet PO PRN ×2 (12:58→20:31)
--- NOTE | 2018-08-27 13:04 | P.PN ---
Subjective Interval history: Nursing reports patient getting tachycardic this morning into the 140s. 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 Patient herself says she still feels short of breath, says she is short of breath at baseline but she still feels worse than baseline. Says she has cough induced chest pain. Physical Exam Vital signs: Vital Signs 08/26/18 14:00 08/26/18 14:38 08/26/18 15:54 Temperature Pulse Rate 108 H 106 H 76 Respiratory Rate Blood Pressure Pulse Oximetry 08/26/18 16:00 08/26/18 16:10 08/26/18 17:00 Temperature 98.1 F Pulse Rate 79 80 86 Respiratory Rate 20 14 Blood Pressure 144/86 H Pulse Oximetry 97 08/26/18 18:00 08/26/18 19:00 08/26/18 20:00 Temperature 98.0 F Pulse Rate 102 H 77 88 Respiratory Rate 22 Blood Pressure 145/83 H Pulse Oximetry 95 08/26/18 20:28 08/26/18 21:00 08/26/18 22:00 Temperature Pulse Rate 74 78 80 Respiratory Rate 18 Blood Pressure Pulse Oximetry 97 08/26/18 23:00 08/26/18 23:44 08/27/18 00:00 Temperature Pulse Rate 72 71 95 H Respiratory Rate 18 24 Blood Pressure 145/83 H Pulse Oximetry 93 L 08/27/18 01:00 08/27/18 02:00 08/27/18 03:00 Temperature Pulse Rate 87 97 H 70 Respiratory Rate Blood Pressure Pulse Oximetry 08/27/18 03:55 08/27/18 04:00 08/27/18 05:00 Temperature Pulse Rate 68 82 84 Respiratory Rate 18 24 Blood Pressure 103/51 L Pulse Oximetry 97 08/27/18 06:00 08/27/18 07:00 08/27/18 08:00 Temperature 98.2 F Pulse Rate 74 157 H 150 H Respiratory Rate 22 Blood Pressure 117/56 L Pulse Oximetry 97 08/27/18 08:58 08/27/18 09:00 08/27/18 09:11 Temperature Pulse Rate 70 146 H 78 Respiratory Rate 24 24 Blood Pressure Pulse Oximetry 96 08/27/18 10:00 08/27/18 11:12 08/27/18 12:00 Temperature 98.2 F Pulse Rate 159 H 128 H 145 H Respiratory Rate 20 20 Blood Pressure 122/80 Pulse Oximetry 95 Intake & Output 08/26/18 08/27/18 08/27/18 18:59 06:59 18:59 Intake Total 1060 / 1060 240 / 240 480 / 480 Output Total 875 / 875 1000 / 1000 Balance 185 / 185 -760 / -760 480 / 480 Weight 146 kg Intake: Oral 1060 / 1060 240 / 240 480 / 480 Output: Urine 875 / 875 1000 / 1000 Other: # Voids 2 2 Date of Last Bowel Movement 08/22/18 08/27/18 08/26/18 # Bowel Movements 2 Narrative: Patient lying in bed, awake, alert Heart rhythm is regular but tachycardic Minimal he labored breathing, end expiratory wheezing bilaterally Abdomen soft Results - Labs CBC & Chem 7: 08/27/18 05:31 08/27/18 05:31 Laboratory Results - last 24 hr 08/26/18 08/26/18 08/27/18 17:00 20:51 05:31 WBC RBC Hgb Hct MCV MCH MCHC RDW Plt Count MPV Sodium 141 Potassium 4.0 Chloride 106 Carbon Dioxide 25.8 Anion Gap 9 BUN 17 Creatinine 0.67 Estimated GFR Greater than 89 POC Glucose 155 H 189 H Random Glucose 145 H Calcium 8.4 L Magnesium 2.3 TSH 08/27/18 08/27/18 08/27/18 05:31 05:31 08:58 WBC 20.2 H RBC 4.91 Hgb 13.2 Hct 39.8 MCV 81.1 MCH 26.8 L MCHC 33.1 RDW 14.1 Plt Count 307 MPV 9.1 Sodium Potassium Chloride Carbon Dioxide Anion Gap BUN Creatinine Estimated GFR POC Glucose 178 H Random Glucose Calcium Magnesium TSH 0.432 08/27/18 12:27 WBC RBC Hgb Hct MCV MCH MCHC RDW Plt Count MPV Sodium Potassium Chloride Carbon Dioxide Anion Gap BUN Creatinine Estimated GFR POC Glucose 172 H Random Glucose Calcium Magnesium TSH Microbiology 08/24/18 17:12 Blood - Peripheral Aerobic Blood Culture - Preliminary No growth in 3 days 08/24/18 17:12 Blood - Peripheral Anaerobic Blood Culture - Preliminary No growth in 3 days 08/24/18 17:02 Blood - Peripheral Aerobic Blood Culture - Preliminary No growth in 3 days 08/24/18 17:02 Blood - Peripheral Anaerobic Blood Culture - Preliminary No growth in 3 days Assessment and Plan - Plan Patient is a 58-year-old female with past medical history of asthma presenting with shortness of breath found to have asthma exacerbation Pulmonary: Asthma exacerbation, JOAQUÍN Continue azithromycin Continue steroids Continue nebulizer therapy as needed Nocturnal BiPAP. Continue Symbicort Continue insulin sliding scale while on steroids. Leukocytosis - secondary to steroids Tachyarrhythmia EKG to which i independently reviewed which shows possible SVT which failed in response to 5 mg of IV Cardizem, consulting cardiology Will cover the patient with weight-based Lovenox for now in case she actually has A. fib with RVR, cardiology input pending
--- NOTE | 2018-08-27 17:55 | P.PN ---
Subjective Interval history: ALERT LESS SOB LESS WHEEZING PLAN O2 NEEDED BRONCHODILATOR THERAPY INCREASE ACTIVITY Physical Exam Vital signs: Vital Signs 08/26/18 18:00 08/26/18 19:00 08/26/18 20:00 Temperature 98.0 F Pulse Rate 102 H 77 88 Respiratory Rate 22 Blood Pressure 145/83 H Pulse Oximetry 95 08/26/18 20:28 08/26/18 21:00 08/26/18 22:00 Temperature Pulse Rate 74 78 80 Respiratory Rate 18 Blood Pressure Pulse Oximetry 97 08/26/18 23:00 08/26/18 23:44 08/27/18 00:00 Temperature Pulse Rate 72 71 95 H Respiratory Rate 18 24 Blood Pressure 145/83 H Pulse Oximetry 93 L 08/27/18 01:00 08/27/18 02:00 08/27/18 03:00 Temperature Pulse Rate 87 97 H 70 Respiratory Rate Blood Pressure Pulse Oximetry 08/27/18 03:55 08/27/18 04:00 08/27/18 05:00 Temperature Pulse Rate 68 82 84 Respiratory Rate 18 24 Blood Pressure 103/51 L Pulse Oximetry 97 08/27/18 06:00 08/27/18 07:00 08/27/18 08:00 Temperature 98.2 F Pulse Rate 74 157 H 150 H Respiratory Rate 22 Blood Pressure 117/56 L Pulse Oximetry 97 08/27/18 08:58 08/27/18 09:00 08/27/18 09:11 Temperature Pulse Rate 70 146 H 78 Respiratory Rate 24 24 Blood Pressure Pulse Oximetry 96 08/27/18 10:00 08/27/18 11:00 08/27/18 11:12 Temperature Pulse Rate 159 H 140 H 128 H Respiratory Rate 20 Blood Pressure Pulse Oximetry 08/27/18 12:00 08/27/18 13:00 08/27/18 13:35 Temperature 98.2 F Pulse Rate 144 H 154 H 82 Respiratory Rate 20 24 Blood Pressure 122/80 Pulse Oximetry 95 98 08/27/18 14:00 08/27/18 15:00 08/27/18 15:14 Temperature Pulse Rate 150 H 161 H 137 H Respiratory Rate 20 Blood Pressure Pulse Oximetry 08/27/18 15:15 08/27/18 16:00 08/27/18 17:00 Temperature 97.9 F Pulse Rate 167 H 144 H Respiratory Rate 20 Blood Pressure 103/66 Pulse Oximetry 98 95 Intake & Output 08/26/18 08/27/18 08/27/18 18:59 06:59 18:59 Intake Total 1060 / 1060 240 / 240 480 / 480 Output Total 875 / 875 1000 / 1000 Balance 185 / 185 -760 / -760 480 / 480 Weight 146 kg Intake: Oral 1060 / 1060 240 / 240 480 / 480 Output: Urine 875 / 875 1000 / 1000 Other: # Voids 2 2 Date of Last Bowel Movement 08/22/18 08/27/18 08/26/18 # Bowel Movements 2 Results - Labs CBC & Chem 7: 08/27/18 05:31 08/27/18 05:31 Laboratory Results - last 24 hr 08/26/18 08/27/18 08/27/18 20:51 05:31 05:31 WBC 20.2 H RBC 4.91 Hgb 13.2 Hct 39.8 MCV 81.1 MCH 26.8 L MCHC 33.1 RDW 14.1 Plt Count 307 MPV 9.1 Sodium 141 Potassium 4.0 Chloride 106 Carbon Dioxide 25.8 Anion Gap 9 BUN 17 Creatinine 0.67 Estimated GFR Greater than 89 POC Glucose 189 H Random Glucose 145 H Calcium 8.4 L Magnesium 2.3 TSH 08/27/18 08/27/18 08/27/18 05:31 08:58 12:27 WBC RBC Hgb Hct MCV MCH MCHC RDW Plt Count MPV Sodium Potassium Chloride Carbon Dioxide Anion Gap BUN Creatinine Estimated GFR POC Glucose 178 H 172 H Random Glucose Calcium Magnesium TSH 0.432 08/27/18 17:08 WBC RBC Hgb Hct MCV MCH MCHC RDW Plt Count MPV Sodium Potassium Chloride Carbon Dioxide Anion Gap BUN Creatinine Estimated GFR POC Glucose 151 H Random Glucose Calcium Magnesium TSH Microbiology 08/24/18 17:12 Blood - Peripheral Aerobic Blood Culture - Preliminary No growth in 3 days 08/24/18 17:12 Blood - Peripheral Anaerobic Blood Culture - Preliminary No growth in 3 days 08/24/18 17:02 Blood - Peripheral Aerobic Blood Culture - Preliminary No growth in 3 days 08/24/18 17:02 Blood - Peripheral Anaerobic Blood Culture - Preliminary No growth in 3 days Assessment and Plan - Plan copd exacerbation JOAQUÍN PLAN O2 NEEDED BRONCHODILATORS INCREASE ACTIVITY
[2018-08-27] MEDS: dilTIAZem Inj 125 MG in Sodium Chlor 0.9% Inj 100 ML IV.CONT PRN (19:12)
--- NOTE | 2018-08-27 20:20 | MB ---
cc: Mustapha Madera MD DATE: 08/27/2018 REFERRING PHYSICIAN: Dr. Fuentes. REASON FOR CONSULTATION: Management of atrial fibrillation. HISTORY OF PRESENT ILLNESS: The patient is a 52-year-old lady known to me. She does have symptomatic paroxysmal atrial fibrillation along with sleep apnea, overweight, and diabetes. She presented to [facility] with flu-like symptoms and COPD exacerbation, has been seen closely by Dr. Fong. She was noted also to have episodes of atrial fibrillation with heart rate up to 140s. She was tried on Coumadin but she is reluctant to take Coumadin with frequent PT/INR checks. So far, lab tests showed elevation, WBC up to 20.2 with creatinine normal at 0.75. Potassium in the normal range. Again, EKG now showed atrial fibrillation with heart rate up to 130s to 140s. PAST MEDICA HISTORY: As above. Also, had DVT in the past. PAST SURGICAL HISTORY: As above. ALLERGIES: PEANUT ALLERGIES. REVIEW OF SYSTEMS: HEENT: Normal. GASTROINTESTINAL: No nausea or vomiting. GENITOURINARY: No dysuria. MUSCULOSKELETAL: Fatigue. CARDIOVASCULAR: As above. CHEST: Some dyspnea. ENDOCRINE: Normal. SKIN: Normal. PSYCHIATRIC: Normal. CENTRAL NERVOUS SYSTEM: No dizziness. PHYSICAL EXAMINATION: VITAL SIGNS: The patient has blood pressure 110/65 with pulse in the 130s with underlying atrial fibrillation. O2 saturation is over 90%. Afebrile. HEENT: Normal oral exam. PERRLA. ENDOCRINE: There is no thyroid enlargement. LYMPHATIC: No lymphadenopathy. RESPIRATORY: Decreased breath sounds with rhonchi and occasional wheezing. HEART: Irregular intermittent tachycardia. No loud murmurs. ABDOMEN: Active bowel sounds over 4 quadrants. GENITOURINARY: Deferred. MUSCULOSKELETAL: ____ range of motion intact. SKIN: There is no ecchymosis. PSYCHIATRIC: The patient has good mood, good judgment. NEUROLOGIC: There are no focal neurologic deficits. DIAGNOSTIC DATA: So far, EKG and telemetry showed atrial fibrillation. ASSESSMENT AND PLAN: 1. Symptomatic atrial fibrillation with intermittent tachycardia. 2. Chronic obstructive pulmonary disease exacerbation. 3. Sleep apnea and overweight. 4. Diabetes. PLAN: 1. I will titrate Cardizem drip up to 50 mg/h to see how she does with Cardizem drip and then switch to p.o. Cardizem. Also, added digoxin 0.25 mg daily. 2. Anticoagulation. She has trouble with Coumadin. She is unwilling to take Coumadin for long-term with regular PT/INR checks. I will check if insurance will cover Eliquis 5 mg b.i.d. 3. As to COPD, we will continue steroids and bronchodilators. I will leave the treatment up to Dr. Fong. 4. Type 2 diabetes. We will continue metformin. We see how she does with Cardizem drip and digoxin overnight. Hopefully, her insurance will cover Eliquis. I would like to thank Dr. Fuentes for letting me participate in the care of this patient. Mustapha Madera MD HW/ll , 07:55 PM , 08:05 PM
[2018-08-27] MEDS ORDERED: Enoxaparin Inj 100 MG/ML Syringe SQ SCH (21:00)
[2018-08-28] MEDS: dilTIAZem Inj 125 MG in Sodium Chlor 0.9% Inj 100 ML IV.CONT PRN ×3 (03:20→23:09)
[2018-08-28] MEDS: MethylPREDNISolone Sod Succinate Inj 125 MG/2 ML Vial IV.PUSH SCH ×3 (05:34→23:10)
[2018-08-28] MEDS: Digoxin 250 MCG Tablet PO SCH (08:29)
[2018-08-28] MEDS: Theophylline ER 24 HR 100 MG Capsule PO SCH (08:29)
[2018-08-28] MEDS: Insulin NovoLOG Aspart Correctional Sugar Inj SQ SCH ×4 (08:30→20:35)
[2018-08-28] MEDS: Acetaminophen 325 MG Tablet PO PRN (08:34)
--- NOTE | 2018-08-28 09:35 | P.PN ---
Subjective Interval history: alert less sob A-FIB last night Physical Exam Vital signs: Vital Signs 08/27/18 10:00 08/27/18 11:00 08/27/18 11:12 Temperature Pulse Rate 159 H 140 H 128 H Respiratory Rate 20 Blood Pressure Pulse Oximetry 08/27/18 12:00 08/27/18 13:00 08/27/18 13:35 Temperature 98.2 F Pulse Rate 144 H 154 H 82 Respiratory Rate 20 24 Blood Pressure 122/80 Pulse Oximetry 95 98 08/27/18 14:00 08/27/18 15:00 08/27/18 15:14 Temperature Pulse Rate 150 H 161 H 137 H Respiratory Rate 20 Blood Pressure Pulse Oximetry 08/27/18 15:15 08/27/18 16:00 08/27/18 17:00 Temperature 97.9 F Pulse Rate 167 H 144 H Respiratory Rate 20 Blood Pressure 103/66 Pulse Oximetry 98 95 08/27/18 18:00 08/27/18 18:20 08/27/18 19:00 Temperature Pulse Rate 143 H 143 H 128 H Respiratory Rate 20 Blood Pressure 114/57 L Pulse Oximetry 97 08/27/18 20:00 08/27/18 21:00 08/27/18 22:00 Temperature 98.4 F Pulse Rate 136 H 134 H 122 H Respiratory Rate 20 Blood Pressure 113/73 Pulse Oximetry 96 08/27/18 23:00 08/27/18 23:11 08/27/18 23:54 Temperature 98.2 F Pulse Rate 120 H 153 H 116 H Respiratory Rate 25 H 20 Blood Pressure 124/59 L Pulse Oximetry 95 96 08/28/18 00:00 08/28/18 01:00 08/28/18 02:00 Temperature Pulse Rate 136 H 114 H 115 H Respiratory Rate Blood Pressure Pulse Oximetry 08/28/18 03:00 08/28/18 03:19 08/28/18 04:00 Temperature 98.2 F Pulse Rate 133 H 115 H 116 H Respiratory Rate 26 H 20 Blood Pressure 96/53 L Pulse Oximetry 96 08/28/18 04:59 08/28/18 05:55 08/28/18 07:00 Temperature Pulse Rate 99 H 145 H 119 H Respiratory Rate Blood Pressure Pulse Oximetry 08/28/18 07:58 08/28/18 08:00 Temperature 98.0 F Pulse Rate 95 H 122 H Respiratory Rate 16 20 Blood Pressure 116/79 Pulse Oximetry 97 94 L Intake & Output 08/27/18 08/28/18 08/28/18 18:59 06:59 18:59 Intake Total 1120 / 1120 605 / 605 120 / 120 Output Total 1150 / 1150 500 / 500 Balance -30 / -30 105 / 105 120 / 120 Weight 141 kg Intake: IV 125 / 125 Cardizem Inj 125 MG In NS Inj 125 / 125 100 ML @ 5 MG/HR 5 mls/hr IV. CONT TITRATE PRN Rx#:[id number] Oral 1120 / 1120 480 / 480 120 / 120 Output: Urine 1150 / 1150 500 / 500 Other: # Voids 2 # Incontinent Voids 2 Date of Last Bowel Movement 08/26/18 08/26/18 08/26/18 # Bowel Movements 0 Narrative: Patient lying in bed, awake, alert Heart rhythm is regular but tachycardic Minimal he labored breathing, end expiratory wheezing bilaterally Abdomen soft Results - Labs CBC & Chem 7: 08/27/18 05:31 08/27/18 05:31 Laboratory Results - last 24 hr 08/27/18 08/27/18 08/27/18 05:31 12:27 17:08 POC Glucose 172 H 151 H TSH 0.432 08/27/18 08/28/18 20:05 08:16 POC Glucose 178 H 151 H TSH Microbiology 08/24/18 17:12 Blood - Peripheral Aerobic Blood Culture - Preliminary No growth in 3 days 08/24/18 17:12 Blood - Peripheral Anaerobic Blood Culture - Preliminary No growth in 3 days 08/24/18 17:02 Blood - Peripheral Aerobic Blood Culture - Preliminary No growth in 3 days 08/24/18 17:02 Blood - Peripheral Anaerobic Blood Culture - Preliminary No growth in 3 days Assessment and Plan - Plan copd exacerbation JOAQUÍN AIB PLAN O2 NEEDED BRONCHODILATORS INCREASE ACTIVITY
--- NOTE | 2018-08-28 11:38 | P.PNIM ---
Subjective Interval history: Respiratory status shows some improvement. Heart rate shows improvement of the patient's heart rate still remains between 115 and 125 bpm. No acute concerns or complaints of chest pain today. Physical Exam Vital signs: Last Vital Signs Temp 98.0 F 08/28/18 08:00 Pulse 144 H 08/28/18 11:00 Resp 20 08/28/18 08:00 BP 116/79 08/28/18 08:00 Pulse Ox 94 L 08/28/18 08:00 Intake & Output 08/26/18 08/27/18 08/28/18 08/29/18 06:59 06:59 06:59 06:59 Intake Total 1540 / 1540 1300 / 1300 1725 / 1725 120 / 120 Output Total 2400 / 2400 1875 / 1875 1650 / 1650 Balance -860 / -860 -575 / -575 75 / 75 120 / 120 Weight 145 kg 146 kg 141 kg Narrative: GENERAL: NAD, A&Ox3 HEAD: Normocephalic. NECK: Supple, trachea midline. No lymphadenopathy. EYES: No scleral icterus. No injection or drainage. CARDIOVASCULAR: Tachycardic rate, irregularly irregular rhythm without murmurs, gallops, or rubs. RESPIRATORY: Breath sounds equal bilaterally. No accessory muscle use. GASTROINTESTINAL: Abdomen soft, non-tender, nondistended. MUSCULOSKELETAL: No cyanosis, or edema. SKIN: Warm and dry. NEURO: No focal neurological deficits. Results Labs CBC & Chem 7: 08/27/18 05:31 08/27/18 05:31 Labs: Microbiology 08/24/18 17:12 Blood - Peripheral Aerobic Blood Culture - Preliminary No growth in 4 days 08/24/18 17:12 Blood - Peripheral Anaerobic Blood Culture - Preliminary No growth in 4 days 08/24/18 17:02 Blood - Peripheral Aerobic Blood Culture - Preliminary No growth in 4 days 08/24/18 17:02 Blood - Peripheral Anaerobic Blood Culture - Preliminary No growth in 4 days Assessment and Plan Plan 58-year-old female admitted with asthma exacerbation and A. fib RVR A. fib RVR versus SVT Continue digoxin Continue Cardizem IV Cardiology following Follow on telemetry Bronchitis Likely viral Continue to monitor clinically Continue azithromycin Asthma exacerbation Continue azithromycin Continue steroids Nebulized treatments as needed Symbicort Leukocytosis Related to steroids Progress Note: Quality VTE Deep Vein Thrombosis/Pulmonary Embolism Present on Admission: No
--- NOTE | 2018-08-28 16:13 | P.CONURO ---
History of Present Illness Service: Urology Consult date: 08/28/18 Requesting Physician: Harshad Maguire Reason for Consult: Hematuria Primary Care Provider: Lit Grossman History of Present Illness: 58-year-old female admitted with asthma exacerbation and A. fib RVR vs SVT. Urology consulted due to hematuria since last night. Pt has no previous history, occasionally has UTIs. She admits to low abd/suprapubic heaviness/ cramps. She had blood in her urine last night and today urine is yellow with few red spots, seen at the urinary hat. She had a pad overnight and at AM it was bloody, she denies any incontinence. no f/c/n/v. Labs are stable Review of Systems All other systems reviewed negative except as stated in HPI [facility] - History History Provided By: Patient - Medical History Medical History: Medical History (Last Reviewed 08/25/18 @ 06:19 by Lanre Fuentes MD) Atrial fibrillation Asthma COPD (chronic obstructive pulmonary disease) DVT (deep venous thrombosis) Diabetes Diverticulitis Osteoarthritis Pulmonary emboli Sciatic leg pain Sleep apnea - Surgical History Surgical History: Surgical History (Last Reviewed 08/25/18 @ 06:19 by Lanre Fuentes MD) H/O knee surgery H/O laparoscopy History of loop recorder Hx of cholecystectomy - Family History Family History: Family History (Last Updated 08/25/18 @ 06:20 by Lanre Fuentes MD) Father Cancer Mother Heart disease - Tobacco History Second Hand Smoke Exposure: No Tobacco Use In Past 30 Days: Yes Smoking Status: Current every day smoker Tobacco Type: Cigarettes - Alcohol History How Often Do You Have a Drink Containing Alcohol: Never - Substance Use History Substance History: No History of Abuse - Travel History Recent Travel in the [place] Within the Last 8 Weeks: No Recent Travel Out of the Country Within the Last 8 Weeks: No - Immunization History Tetanus Immunization: <5 Years Hx Influenza Vaccine This Season: Yes Medications and Allergies Active Medications: Active Medications Acetaminophen (Tylenol) 650 mg PO Q4H PRN PRN Reason: Temp > 100.4 Last Admin: 08/28/18 08:34 Dose: 650 mg Al Hydroxide/Mg Hydroxide (Milk Of Magnesia Liq) 30 ml PO Q12H PRN PRN Reason: Mild Constipation Last Admin: 08/25/18 12:05 Dose: 30 ml Albuterol (Albuterol Neb (Prn)) 2.5 mg NEB Q2HR NEB PRN PRN Reason: SHORTNESS OF BREATH Last Admin: 08/27/18 13:35 Dose: 2.5 mg Albuterol (Duoneb Neb (Lucia)) 1 ampul NEB Q4HR NEB [facility] Last Admin: 08/28/18 15:58 Dose: 1 ampul Apixaban (Eliquis) 5 mg PO BID [facility] Last Admin: 08/28/18 08:29 Dose: 5 mg Benzonatate (Tessalon Perles) 100 mg PO Q8H PRN PRN Reason: COUGH Last Admin: 08/27/18 12:59 Dose: 100 mg Bisacodyl (Dulcolax Supp) 10 mg RECTAL DAILY PRN PRN Reason: SEVERE CONSITIPATION Budesonide/Formoterol Fumarate (Symbicort 160/4.5 Mcg Inh) 2 puff INH Q12H PRN PRN Reason: Shortness Of Breath Last Admin: 08/26/18 05:09 Dose: 2 puff Dextrose (D50w Vial) 50 ml IV.PUSH UNSCH PRN PRN Reason: PER HYPOGLYCEMIA PROTOCOL Digoxin (Lanoxin) 250 mcg PO DAILY [facility] Last Admin: 08/28/18 08:29 Dose: 250 mcg Glucagon (Glucagon Inj) 1 mg OTHER PRN PRN PRN Reason: for Hypoglycemia Protocol Diltiazem HCl 125 mg/ Sodium (Chloride) 125 mls @ 5 mls/hr IV.CONT TITRATE PRN ; Protocol PRN Reason: Per Protocol Last Admin: 08/28/18 14:00 Dose: 15 mg/hr, 15 mls/hr Insulin Aspart (Novolog Insulin Correctional Sugar Inj) 0 unit SQ ACHS [facility]; Protocol Last Admin: 08/28/18 12:17 Dose: 1 unit Lactulose (Lactulose Liq) 30 ml PO DAILY PRN PRN Reason: SEVERE CONSITIPATION Last Admin: 08/26/18 08:05 Dose: 30 ml Methylprednisolone Sodium Succinate (Solumedrol Inj) 60 mg IV.PUSH Q8HR [facility] Last Admin: 08/28/18 14:15 Dose: 60 mg Ondansetron HCl (Zofran Inj) 4 mg IV.PUSH Q6H PRN PRN Reason: NAUSEA OR VOMITING Sennosides (Senokot) 17.2 mg PO Q12H PRN PRN Reason: Moderate Constipation Last Admin: 08/25/18 12:05 Dose: 17.2 mg Sodium Chloride (Ns Flush) 2 ml IV.FLUSH BID [facility] Last Admin: 08/28/18 08:32 Dose: Not Given Sodium Chloride (Ns Flush) 2 ml IV.FLUSH PRN PRN PRN Reason: FLUSH AFTER USING IV ACCESS Theophylline (Vern-24) 300 mg PO Q24H [facility] Last Admin: 08/28/18 08:29 Dose: 300 mg Allergies Allergy/AdvReac Type Severity Reaction Status Date / Time peanut Allergy Severe Anaphylaxis Verified 08/24/18 16:47 OMNISCAN /MRI PRECAUTION AdvReac Intermediate pt had Uncoded 08/24/18 16:47 hives after omniscan injection Home Medications Medication Instructions Recorded Confirmed Type albuterol sulfate 2.5 mg INHALATION QID 07/03/18 08/24/18 History albuterol sulfate [Ventolin HFA] 2 puff INHALATION Q6H PRN 07/03/18 08/24/18 History atorvastatin 10 mg PO DAILY 07/03/18 08/24/18 History budesonide-formoterol [Symbicort] 2 puff INHALATION Q12H PRN 07/03/18 08/24/18 History ipratropium-albuterol 3 ml INHALATION Q6-8H PRN 07/03/18 08/24/18 History metformin 1,000 mg PO BID 07/03/18 08/24/18 History theophylline 300 mg PO Q24H 07/03/18 08/24/18 History hydrocodone-acetaminophen 1 tab PO Q6H 08/27/18 08/27/18 History Physical Exam Vital Signs - 24 hr 08/27/18 17:00 08/27/18 18:00 08/27/18 18:20 Temperature Pulse Rate 144 H 143 H 143 H Respiratory Rate 20 Blood Pressure 114/57 L Pulse Oximetry 97 08/27/18 19:00 08/27/18 20:00 08/27/18 21:00 Temperature 98.4 F Pulse Rate 128 H 136 H 134 H Respiratory Rate 20 Blood Pressure 113/73 Pulse Oximetry 96 08/27/18 22:00 08/27/18 23:00 08/27/18 23:11 Temperature Pulse Rate 122 H 120 H 153 H Respiratory Rate 25 H Blood Pressure Pulse Oximetry 95 08/27/18 23:54 08/28/18 00:00 08/28/18 01:00 Temperature 98.2 F Pulse Rate 116 H 136 H 114 H Respiratory Rate 20 Blood Pressure 124/59 L Pulse Oximetry 96 08/28/18 02:00 08/28/18 03:00 08/28/18 03:19 Temperature Pulse Rate 115 H 133 H 115 H Respiratory Rate 26 H Blood Pressure Pulse Oximetry 08/28/18 04:00 08/28/18 04:59 08/28/18 05:55 Temperature 98.2 F Pulse Rate 116 H 99 H 145 H Respiratory Rate 20 Blood Pressure 96/53 L Pulse Oximetry 96 08/28/18 07:00 08/28/18 07:58 08/28/18 08:00 Temperature 98.0 F Pulse Rate 119 H 95 H 122 H Respiratory Rate 16 20 Blood Pressure 116/79 Pulse Oximetry 97 94 L 08/28/18 09:00 08/28/18 10:00 08/28/18 11:00 Temperature Pulse Rate 148 H 141 H 144 H Respiratory Rate Blood Pressure Pulse Oximetry 08/28/18 12:00 08/28/18 12:23 08/28/18 13:00 Temperature 98.3 F Pulse Rate 135 H 113 H 109 H Respiratory Rate 20 20 Blood Pressure 110/65 Pulse Oximetry 98 08/28/18 14:00 08/28/18 15:00 08/28/18 15:58 Temperature Pulse Rate 95 H 88 95 H Respiratory Rate 20 Blood Pressure Pulse Oximetry Physical Exam: GENERAL: This is a well-nourished, well-developed patient, in no apparent distress. Obese SKIN: No rashes, ecchymoses or lesions. Cool and dry. HEAD: Atraumatic. Normocephalic. CARDIOVASCULAR:+ tachy RESPIRATORY: Clear to auscultation. Breath sounds equal bilaterally. No wheezes , rales, or rhonchi. GASTROINTESTINAL: Abdomen soft, non-tender, nondistended. GENITOURINARY: No CVAT NEUROLOGICAL: Awake and alert. Laboratory Results - last 24 hr 08/27/18 08/27/18 08/28/18 17:08 20:05 08:16 POC Glucose 151 H 178 H 151 H 08/28/18 11:36 POC Glucose 198 H Microbiology 08/24/18 17:12 Aerobic Blood Culture - Preliminary Blood - Peripheral No growth in 4 days Anaerobic Blood Culture - Preliminary No growth in 4 days 08/24/18 17:02 Aerobic Blood Culture - Preliminary Blood - Peripheral No growth in 4 days Anaerobic Blood Culture - Preliminary No growth in 4 days Result Diagrams: 08/27/18 05:31 08/27/18 05:31 Imaging: ITS Impressions Chest X-Ray 08/24/18 16:59 CONCLUSION: No acute infiltrates. Mild pulmonary venous congestion.. Assessment and Plan - Plan 58y.o F with hx as per HPI - No acute intervention needed - Send urine for Urine culture - If no contraindication due to her other medical issues she will need CT scan abd / Pelvis pre/post IV contrast -SLITTER SCORER causes of bleeding are not excluded, needs SLITTER SCORER consult - Cystoscopy as outpt Discussed Condition With: Dr Jae WINTER attending
--- NOTE | 2018-08-28 16:22 | ECG ---
Date Performed: 08/27/2018 Time Performed: 13:28:38 PTAGE: 58 years EKG: Atrial fibrillation with rapid ventricular response. Poor R wave progression - probable nor mal variant Low QRS voltages in precordial leads Abnormal ECG NO PREVIOUS TRACING DOCTOR: Serge Bosch Interpretating Date/Time 08/28/2018 16:22:12
--- NOTE | 2018-08-28 16:24 | ECG ---
Date Performed: 08/27/2018 Time Performed: 11:16:18 PTAGE: 58 years EKG: Atrial fibrillation. Poor R wave progression - probable normal variant Low QRS voltages in precordial leads Since previous tracing, no significant change noted Borderline ECG PREVIOUS TRACING : 08/27/2018 [id number] DOCTOR: Serge Bosch Interpretating Date/Time 08/28/2018 16:23:39
--- NOTE | 2018-08-28 16:25 | ECG ---
Date Performed: 08/27/2018 Time Performed: 16:21:48 PTAGE: 58 years EKG: Atrial fibrillation with rapid ventricular response Poor R wave progression - probable norm al variant Low QRS voltages in precordial leads Since previous tracing, no significant change noted A bnormal ECG PREVIOUS TRACING : 08/27/2018 13.28 DOCTOR: Serge Bosch Interpretating Date/Time 08/28/2018 16:23:56
[2018-08-29] MEDS: MethylPREDNISolone Sod Succinate Inj 125 MG/2 ML Vial IV.PUSH SCH ×3 (05:38→21:21)
[2018-08-29] MEDS: Insulin NovoLOG Aspart Correctional Sugar Inj SQ SCH ×4 (09:03→21:22)
[2018-08-29] MEDS: Theophylline ER 24 HR 100 MG Capsule PO SCH (09:04)
[2018-08-29] MEDS: Digoxin 250 MCG Tablet PO SCH (09:04)
[2018-08-29] MEDS: dilTIAZem 60 MG Tablet PO SCH ×4 (09:05→21:22)
--- NOTE | 2018-08-29 09:39 | P.PNIM ---
Subjective Interval history: Patient has been improving through time. Heart rate is improved. Respiratory status is improved. Not yet weaned from oxygen. Further workup of bladder as recommended by urology including possible outpatient cystoscopy. Abdominal last pelvis CT scan with and without contrast recommended for further inpatient evaluation. Patient still has hematuria. Physical Exam Vital signs: Last Vital Signs Temp 97.7 F 08/29/18 03:27 Pulse 93 H 08/29/18 05:55 Resp 18 08/29/18 03:27 BP 99/67 L 08/29/18 03:27 Pulse Ox 97 08/29/18 00:00 Intake & Output 08/27/18 08/28/18 08/29/18 08/30/18 06:59 06:59 06:59 06:59 Intake Total 1300 / 1300 1725 / 1725 2290 / 2290 Output Total 1875 / 1875 1650 / 1650 2750 / 2750 Balance -575 / -575 75 / 75 -460 / -460 Weight 146 kg 141 kg 142.5 kg Narrative: GENERAL: NAD, A&Ox3 HEAD: Normocephalic. NECK: Supple, trachea midline. No lymphadenopathy. EYES: No scleral icterus. No injection or drainage. CARDIOVASCULAR: Tachycardic rate, irregularly irregular rhythm without murmurs, gallops, or rubs. RESPIRATORY: Breath sounds equal bilaterally. No accessory muscle use. GASTROINTESTINAL: Abdomen soft, non-tender, nondistended. MUSCULOSKELETAL: No cyanosis, or edema. SKIN: Warm and dry. NEURO: No focal neurological deficits. Results Labs CBC & Chem 7: 08/27/18 05:31 08/27/18 05:31 Labs: Microbiology 08/24/18 17:12 Blood - Peripheral Aerobic Blood Culture - Preliminary No growth in 4 days 08/24/18 17:12 Blood - Peripheral Anaerobic Blood Culture - Preliminary No growth in 4 days 08/24/18 17:02 Blood - Peripheral Aerobic Blood Culture - Preliminary No growth in 4 days 08/24/18 17:02 Blood - Peripheral Anaerobic Blood Culture - Preliminary No growth in 4 days Assessment and Plan Plan 58-year-old female admitted with asthma exacerbation and A. fib RVR Heart rate and respiratory status continuing to improve. Monitor on telemetry. Continue antibiotics. Further improvement needed before consideration for discharge. Hematuria CT of abdomen and pelvis with and without contrast Urology follow-up as an outpatient Follow CBC A. fib RVR versus SVT Continue digoxin Continue Cardizem IV Cardiology following Follow on telemetry Bronchitis Likely viral Continue to monitor clinically Continue azithromycin Asthma exacerbation Continue azithromycin Continue steroids Nebulized treatments as needed Symbicort Severe obesity Weight loss recommended Leukocytosis Related to steroids Progress Note: Quality VTE Deep Vein Thrombosis/Pulmonary Embolism Present on Admission: No
[2018-08-29] MEDS ORDERED: Diatrizoate Meglum/Diatrizoate Sod Liq 9 ML UDC PO ONE (09:45)
--- NOTE | 2018-08-29 15:30 | MB ---
cc: Isaiah Morales MD DATE: 08/29/2018 SUBJECTIVE: This is a 58-year-old white female who was admitted for COPD with acute exacerbation. She just quit smoking a month ago. She is known to have paroxysmal atrial fibrillation. She was given digoxin and Cardizem. Her ventricular rate has improved. OBJECTIVE: VITAL SIGNS: Blood pressure 100/65, pulse 80 per minute, irregular, afebrile. CHEST: Decreased air entry with mild degree of bronchospasm. CARDIOVASCULAR: Normal neck vein. S1, S2 is decreased, irregular. No gross murmur. ABDOMEN: Obese abdomen. MUSCULOSKELETAL: One plus swelling of the lower extremities. ASSESSMENT AND PLAN: 1. Atrial fibrillation with better rate. 2. Chronic obstructive pulmonary disease with acute exacerbation. PLAN: We will continue p.o. digoxin, Cardizem, and Eliquis. We will continue COPD with acute exacerbation treatment. We have discussed the case with Dr. Madera. He wants to continue medical therapy for now with rate control MD STONE Lyons/ts , 02:55 PM , 03:02 PM [email or web address]
--- NOTE | 2018-08-29 16:03 | P.PN ---
Subjective Interval history: alert less sob Physical Exam Vital signs: Vital Signs 08/28/18 17:00 08/28/18 18:00 08/28/18 19:00 Temperature Pulse Rate 100 H 97 H 107 H Respiratory Rate Blood Pressure Pulse Oximetry 08/28/18 19:15 08/28/18 20:00 08/28/18 21:00 Temperature 98.2 F Pulse Rate 88 97 H 100 H Respiratory Rate 18 20 Blood Pressure 110/68 Pulse Oximetry 97 08/28/18 22:00 08/28/18 23:00 08/28/18 23:21 Temperature Pulse Rate 99 H 90 95 H Respiratory Rate 18 Blood Pressure Pulse Oximetry 08/29/18 00:00 08/29/18 01:00 08/29/18 02:00 Temperature 98.8 F Pulse Rate 105 H 98 H 104 H Respiratory Rate 20 Blood Pressure 116/60 Pulse Oximetry 97 08/29/18 03:00 08/29/18 03:27 08/29/18 04:00 Temperature 97.7 F Pulse Rate 100 H 100 H 94 H Respiratory Rate 18 Blood Pressure 99/67 L Pulse Oximetry 08/29/18 05:00 08/29/18 05:55 08/29/18 07:00 Temperature Pulse Rate 100 H 93 H 101 H Respiratory Rate Blood Pressure Pulse Oximetry 08/29/18 08:00 08/29/18 09:00 08/29/18 10:00 Temperature 97.7 F Pulse Rate 78 110 H 92 H Respiratory Rate 16 Blood Pressure 130/78 Pulse Oximetry 93 L 08/29/18 10:30 08/29/18 10:40 08/29/18 11:42 Temperature Pulse Rate 98 H Respiratory Rate 22 Blood Pressure Pulse Oximetry 93 L 08/29/18 12:00 08/29/18 12:41 08/29/18 14:00 Temperature 98.0 F Pulse Rate 97 H 92 H 84 Respiratory Rate 19 Blood Pressure 109/68 Pulse Oximetry 94 L 08/29/18 14:31 Temperature Pulse Rate 74 Respiratory Rate Blood Pressure Pulse Oximetry Intake & Output 08/28/18 08/29/18 08/29/18 18:59 06:59 18:59 Intake Total 1205 / 1205 1085 / 1085 125 / 125 Output Total 1550 / 1550 1200 / 1200 Balance -345 / -345 -115 / -115 125 / 125 Weight 142.5 kg Intake: IV 125 / 125 125 / 125 125 / 125 Cardizem Inj 125 MG In NS Inj 125 / 125 125 / 125 125 / 125 100 ML @ 5 MG/HR 5 mls/hr IV. CONT TITRATE PRN Rx#:[id number] Oral 1080 / 1080 960 / 960 Output: Urine 1550 / 1550 1200 / 1200 Other: Date of Last Bowel Movement 08/28/18 08/28/18 08/26/18 # Bowel Movements 1 Narrative: GENERAL: NAD, A&Ox3 HEAD: Normocephalic. NECK: Supple, trachea midline. No lymphadenopathy. EYES: No scleral icterus. No injection or drainage. CARDIOVASCULAR: Tachycardic rate, irregularly irregular rhythm without murmurs, gallops, or rubs. RESPIRATORY: Breath sounds equal bilaterally. No accessory muscle use. GASTROINTESTINAL: Abdomen soft, non-tender, nondistended. MUSCULOSKELETAL: No cyanosis, or edema. SKIN: Warm and dry. NEURO: No focal neurological deficits. Results - Labs CBC & Chem 7: 08/27/18 05:31 08/27/18 05:31 Laboratory Results - last 24 hr 08/28/18 08/28/18 08/29/18 16:53 19:43 08:24 POC Glucose 118 H 144 H 149 H 08/29/18 11:41 POC Glucose 131 H Microbiology 08/28/18 16:58 Clean Catch Urine Urine Culture - Preliminary gram negative rods 08/24/18 17:12 Blood - Peripheral Aerobic Blood Culture - Final No growth in 5 days 08/24/18 17:12 Blood - Peripheral Anaerobic Blood Culture - Final No growth in 5 days 08/24/18 17:02 Blood - Peripheral Aerobic Blood Culture - Final No growth in 5 days 08/24/18 17:02 Blood - Peripheral Anaerobic Blood Culture - Final No growth in 5 days Assessment and Plan - Plan copd exacerbation JOAQUÍN AIB [employer]AN O2 NEEDED BRONCHODILATORS INCREASE ACTIVITY
--- NOTE | 2018-08-29 16:20 | CT ---
EXAM DATE: 08/29/2018 3:57 PM EST AGE/SEX: 58 years / Female INDICATIONS: Patient complains of diffuse abdominal pain with hematuria. CLINICAL DATA: This is the patient's initial encounter. Patient reports that signs and symptoms have been present for 1 day and indicates a pain score of 10/10. MEDICAL/SURGICAL HISTORY: Chronic obstructive pulmonary disease. Diabetes. Diverticulitis. A -fib DVT Cholecystectomy. RADIATION DOSE: 28.86 CTDI (mGy) COMPARISON: No prior exams available for comparison. TECHNIQUE: Pre-contrast images were obtained. Multiple contiguous helical axial images were then ob tained through the abdomen and pelvis following bolus infusion of 95 ml Omnipaque 350 (iohexol) nonio vinny water-soluble contrast and ingestion of dilute oral contrast as a single exam dose. Prescribed or al contrast ingested. Using automated exposure control and adjustment of the mA and/or kV according t o patient size, radiation dose was kept as low as reasonably achievable to obtain optimal diagnostic quality images. DICOM format image data is available electronically for review and comparison. FINDINGS: Lower Lungs: The visualized lower lungs are clear. Liver: The liver has a homogeneous density without space-occupying lesion. There is no dilation of th e biliary tree. The patient is status post cholecystectomy. There is mild hepatic steatosis. Spleen: Homogeneous density without enlargement. Pancreas: Unremarkable without mass or calcification. Kidneys: Normal in size and shape. No evidence of mass or hydronephrosis. There is a minute 1 mm non obstructing left renal calculus. Adrenal Glands: Unremarkable. Aorta: The aorta and proximal iliac vessels are grossly unremarkable without aneurysmal dilation. I nferior vena caval filter is present. Bowel/Mesentery: The bowel loops are grossly unremarkable. The cecum and sigmoid colon have a normal configuration. Abdominal Wall: Intact. Retroperitoneum: No evidence of adenopathy in the retrocrural, para-aortic, or deep pelvic regions. Bladder: Contours are smooth. There is a small collection gas in the anterior bladder. Reproductive Organs: No abnormal masses or calcifications seen. Inguinal: The inguinal region is unremarkable without evidence of adenopathy. Bony Structures: Unremarkable. CONCLUSION: 1. Minute 1 mm nonobstructing left renal calculus. The kidneys and ureters are otherwise unremarkabl e. 2. Small air-fluid level in the urinary bladder which may be due to recent instrumentation. 3. Mild hepatic steatosis. 4. Status post cholecystectomy. Electronically signed by: Cristobal Salcedo MD Board Certified Radiologist 08/29/2018 4:19 PM EST
[2018-08-30 05:52] LABS: Hematocrit 42.7 % (35.0-46.0); Hemoglobin 13.7 gm/dL (11.6-15.3); Lymph # (Auto) 1.2 th/mm3 (1.0-4.8); Lymph % (Auto) 5.7 % (9.0-44.0); Mean Corpuscular HGB Conc 32.1 % (32.0-36.0); Mean Corpuscular Hemoglobin 26.5 pg (27.0-34.0); Mean Corpuscular Volume 82.5 fL (80.0-100.0); Mean Platelet Volume 8.6 fL (7.0-11.0); Mono # (Auto) 0.8 th/mm3 (0.0-0.9); Mono % (Auto) 4.2 % (0.0-8.0); Neut # (Auto) 18.3 th/mm3 (1.8-7.7); Neut % (Auto) 90.1 % (16.0-70.0); Platelet Count 307 th/mm3 (150-450); Red Blood Count 5.18 mil/mm3 (4.00-5.30); Red Cell Distribution Width 13.9 % (11.6-17.2); White Blood Count 20.3 th/mm3 (4.0-11.0)
[2018-08-30] MEDS: MethylPREDNISolone Sod Succinate Inj 125 MG/2 ML Vial IV.PUSH SCH ×3 (06:19→21:10)
[2018-08-30 06:25] LABS: Alanine Aminotransferase 33 U/L (10-53); Anion Gap 6 meq/L (5-15); Aspartate Aminotransferase 22 U/L (15-37); Blood Urea Nitrogen 26 mg/dL (7-18); Carbon Dioxide 28.9 meq/L (21.0-32.0); Chloride 103 meq/L (98-107); Glomerular Filtration Rate 74 mL/min (>89); Glucose,Random 147 mg/dL (74-106); Potassium 4.6 meq/L (3.5-5.1); Sodium 138 meq/L (136-145)
[2018-08-30 06:26] LABS: Alkaline Phosphatase 73 U/L (45-117); Total Protein 6.6 g/dL (6.4-8.2)
[2018-08-30 08:32] LABS: Lymphocytes 5 % (9-44); Metamyelocytes 1 % (0-1); Monocytes 1 % (0-8); Myelocytes 1 % (0-0); Platelet Estimate Normal (Normal); Platelet Morphology Normal (Normal)
[2018-08-30] MEDS: Digoxin 250 MCG Tablet PO SCH (08:56)
[2018-08-30] MEDS: dilTIAZem 60 MG Tablet PO SCH ×4 (08:56→21:10)
[2018-08-30] MEDS: Theophylline ER 24 HR 100 MG Capsule PO SCH (08:57)
[2018-08-30] MEDS: Insulin NovoLOG Aspart Correctional Sugar Inj SQ SCH ×4 (08:58→21:11)
--- NOTE | 2018-08-30 11:01 | P.PNCA ---
Subjective Interval history: Patient is hemodynamically stable. The rate is well controlled with medication. Her shortness of breath has also improved Medications and Allergies Active Medications: Active Medications Acetaminophen (Tylenol) 650 mg PO Q4H PRN PRN Reason: Temp > 100.4 Last Admin: 08/28/18 08:34 Dose: 650 mg Hydrocodone Bitart/Acetaminophen ([place] 10/325) 1 tab PO Q4H PRN PRN Reason: Pain 7 to 10 Last Admin: 08/30/18 06:19 Dose: 1 tab Hydrocodone Bitart/Acetaminophen ([place] 5/325) 1 tab PO Q4H PRN PRN Reason: Pain 3 to 6 Al Hydroxide/Mg Hydroxide (Milk Of Magnhernán Liq) 30 ml PO Q12H PRN PRN Reason: Mild Constipation Last Admin: 08/25/18 12:05 Dose: 30 ml Albuterol (Albuterol Neb (Prn)) 2.5 mg NEB Q2HR NEB PRN PRN Reason: SHORTNESS OF BREATH Last Admin: 08/27/18 13:35 Dose: 2.5 mg Apixaban (Eliquis) 5 mg PO BID [facility] Last Admin: 08/30/18 08:56 Dose: 5 mg Benzonatate (Tessalon Perles) 100 mg PO Q8H PRN PRN Reason: COUGH Last Admin: 08/27/18 12:59 Dose: 100 mg Bisacodyl (Dulcolax Supp) 10 mg RECTAL DAILY PRN PRN Reason: SEVERE CONSITIPATION Budesonide/Formoterol Fumarate (Symbicort 160/4.5 Mcg Inh) 2 puff INH Q12H PRN PRN Reason: Shortness Of Breath Last Admin: 08/26/18 05:09 Dose: 2 puff Dextrose (D50w Vial) 50 ml IV.PUSH UNSCH PRN PRN Reason: PER HYPOGLYCEMIA PROTOCOL Digoxin (Lanoxin) 250 mcg PO DAILY [facility] Last Admin: 08/30/18 08:56 Dose: 250 mcg Diltiazem HCl (Cardizem) 60 mg PO QID [facility] Last Admin: 08/30/18 08:56 Dose: 60 mg Glucagon (Glucagon Inj) 1 mg OTHER PRN PRN PRN Reason: for Hypoglycemia Protocol Insulin Aspart (Novolog Insulin Correctional Sugar Inj) 0 unit SQ ACHS [facility]; Protocol Last Admin: 08/30/18 08:58 Dose: 1 unit Lactulose (Lactulose Liq) 30 ml PO DAILY PRN PRN Reason: SEVERE CONSITIPATION Last Admin: 08/26/18 08:05 Dose: 30 ml Methylprednisolone Sodium Succinate (Solumedrol Inj) 60 mg IV.PUSH Q8HR [facility] Last Admin: 08/30/18 06:19 Dose: 60 mg Ondansetron HCl (Zofran Inj) 4 mg IV.PUSH Q6H PRN PRN Reason: NAUSEA OR VOMITING Sennosides (Senokot) 17.2 mg PO Q12H PRN PRN Reason: Moderate Constipation Last Admin: 08/25/18 12:05 Dose: 17.2 mg Sodium Chloride (Ns Flush) 2 ml IV.FLUSH BID [facility] Last Admin: 08/30/18 08:58 Dose: 2 ml Sodium Chloride (Ns Flush) 2 ml IV.FLUSH PRN PRN PRN Reason: FLUSH AFTER USING IV ACCESS Theophylline (Vern-24) 300 mg PO Q24H [facility] Last Admin: 08/30/18 08:57 Dose: 300 mg Allergies Allergy/AdvReac Type Severity Reaction Status Date / Time peanut Allergy Severe Anaphylaxis Verified 08/24/18 16:47 OMNISCAN /MRI PRECAUTION AdvReac Intermediate pt had Uncoded 08/24/18 16:47 hives after omniscan injection Home Medications Medication Instructions Recorded Confirmed Type albuterol sulfate 2.5 mg INHALATION QID 07/03/18 08/24/18 History albuterol sulfate [Ventolin HFA] 2 puff INHALATION Q6H PRN 07/03/18 08/24/18 History atorvastatin 10 mg PO DAILY 07/03/18 08/24/18 History budesonide-formoterol [Symbicort] 2 puff INHALATION Q12H PRN 07/03/18 08/24/18 History ipratropium-albuterol 3 ml INHALATION Q6-8H PRN 07/03/18 08/24/18 History metformin 1,000 mg PO BID 07/03/18 08/24/18 History theophylline 300 mg PO Q24H 07/03/18 08/24/18 History hydrocodone-acetaminophen 1 tab PO Q6H 08/27/18 08/27/18 History Physical Exam Vital signs: Vital Signs 08/29/18 11:42 08/29/18 12:00 08/29/18 12:41 Temperature 98.0 F Pulse Rate 97 H 92 H Respiratory Rate 22 19 Blood Pressure 109/68 Pulse Oximetry 94 L 08/29/18 14:00 08/29/18 14:31 08/29/18 16:00 Temperature 97.9 F Pulse Rate 84 74 91 H Respiratory Rate 20 Blood Pressure 129/76 Pulse Oximetry 94 L 08/29/18 16:25 08/29/18 16:48 08/29/18 18:00 Temperature Pulse Rate 89 92 H Respiratory Rate 16 Blood Pressure Pulse Oximetry 08/29/18 20:00 08/29/18 21:22 08/30/18 00:00 Temperature 97.5 F L 98.4 F Pulse Rate 104 H 87 Respiratory Rate 15 18 16 Blood Pressure 102/58 L 108/53 L Pulse Oximetry 95 94 L 08/30/18 04:00 08/30/18 08:00 08/30/18 10:44 Temperature 97.4 F L 97.8 F Pulse Rate 88 99 H Respiratory Rate 16 17 Blood Pressure 92/54 L 103/58 L Pulse Oximetry 94 L 96 95 Intake & Output 08/29/18 08/30/18 08/30/18 18:59 06:59 18:59 Intake Total 1085 / 1085 240 / 240 Output Total 1250 / 1250 Balance -165 / -165 240 / 240 Weight 141.7 kg Intake: IV 125 / 125 Cardizem Inj 125 MG In NS Inj 125 / 125 100 ML @ 5 MG/HR 5 mls/hr IV. CONT TITRATE PRN Rx#:[id number] Oral 960 / 960 240 / 240 Output: Urine 1250 / 1250 Other: # Voids 4 Date of Last Bowel Movement 08/26/18 # Bowel Movements 0 - Constitutional no acute distress - Routine HEENT Exam Head: Present: normocephalic - Routine Neck Exam Present: supple - Routine Respiratory Exam Present: diminished air movement - Routine Cardiovascular Exam Comments: Heart sounds distant, irregular, no gross murmur - Routine Abdominal Exam Comments: Obese Results 08/30/18 04:59 08/30/18 04:59 Cardiac Enzymes 08/30/18 Range/Units 04:59 AST 22 (15-37) U/L CBC 08/30/18 Range/Units 04:59 WBC 20.3 H (4.0-11.0) th/mm3 RBC 5.18 (4.00-5.30) mil/mm3 Hgb 13.7 (11.6-15.3) gm/dL Hct 42.7 (35.0-46.0) % Plt Count 307 (150-450) th/mm3 Neut # (Auto) 18.3 H (1.8-7.7) th/mm3 Lymph # (Auto) 1.2 (1.0-4.8) th/mm3 [place] # (Auto) 0.8 (0.0-0.9) th/mm3 Eos # (Auto) 0.0 (0.0-0.4) th/mm3 Baso # (Auto) 0.0 (0.0-0.2) th/mm3 Comprehensive Metabolic Panel 08/30/18 Range/Units 04:59 Sodium 138 (136-145) meq/L Potassium 4.6 (3.5-5.1) meq/L Chloride 103 (98-107) meq/L Carbon Dioxide 28.9 (21.0-32.0) meq/L BUN 26 H (7-18) mg/dL Creatinine 0.80 (0.50-1.00) mg/dL Calcium 8.0 L (8.5-10.1) mg/dL AST 22 (15-37) U/L ALT 33 (10-53) U/L Alkaline Phosphatase 73 (45-117) U/L Total Protein 6.6 D (6.4-8.2) g/dL Albumin 3.0 L (3.4-5.0) g/dL Intake and Output 08/29/18 08/30/18 08/30/18 22:59 06:59 14:59 Intake Total 960 / 960 240 / 240 Output Total 1250 / 1250 Balance -290 / -290 240 / 240 Intake: Oral 960 / 960 240 / 240 Output: Urine 1250 / 1250 Other: # Voids 4 Date of Last Bowel Movement 08/26/18 # Bowel Movements 0 Weight 141.7 kg - Imaging and Cardiology Imaging: Impressions Abdomen/Pelvis CT 08/29/18 00:00 CONCLUSION: 1. Minute 1 mm nonobstructing left renal calculus. The kidneys and ureters are otherwise unremarkable. 2. Small air-fluid level in the urinary bladder which may be due to recent instrumentation. 3. Mild hepatic steatosis. 4. Status post cholecystectomy. Assessment and Plan - Assessment (1) Atrial fibrillation Code(s): I48.91 - Unspecified atrial fibrillation Status: Acute - Plan Continue rate control. Dr. Madera will see the patient as outpatient. She will continue oral anticoagulation (1) Atrial fibrillation Qualifiers: Atrial fibrillation type: persistent Qualified Code(s): I48.1 - Persistent atrial fibrillation
--- NOTE | 2018-08-30 12:40 | P.PNIM ---
Subjective Interval history: Patient reports that her breathing is improved. However she continues to have continuous vaginal bleeding. When she urinates, the urine also looks bloody. She denies painful urination. No abdominal pain. Physical Exam Vital signs: Last Vital Signs Temp 97.7 F 08/30/18 12:00 Pulse 90 08/30/18 12:00 Resp 17 08/30/18 12:00 BP 110/59 L 08/30/18 12:00 Pulse Ox 96 08/30/18 12:00 Intake & Output 08/28/18 08/29/18 08/30/18 08/31/18 06:59 06:59 06:59 06:59 Intake Total 1725 / 1725 2290 / 2290 1325 / 1325 Output Total 1650 / 1650 2750 / 2750 1250 / 1250 Balance 75 / 75 -460 / -460 75 / 75 Weight 141 kg 142.5 kg 141.7 kg Narrative: GENERAL: Obese female in no acute distress. CARDIOVASCULAR: Rate around 90, irregularly irregular rhythm without murmurs, gallops, or rubs. RESPIRATORY: Breath sounds equal bilaterally. No accessory muscle use. Faint wheezing diffusely. GASTROINTESTINAL: Abdomen soft, non-tender, nondistended. Results Labs CBC & Chem 7: 08/30/18 04:59 08/30/18 04:59 Labs: Microbiology 08/28/18 16:58 Clean Catch Urine Urine Culture - Final Escherichia coli 08/24/18 17:12 Blood - Peripheral Aerobic Blood Culture - Final No growth in 5 days 08/24/18 17:12 Blood - Peripheral Anaerobic Blood Culture - Final No growth in 5 days 08/24/18 17:02 Blood - Peripheral Aerobic Blood Culture - Final No growth in 5 days 08/24/18 17:02 Blood - Peripheral Anaerobic Blood Culture - Final No growth in 5 days Imaging Imaging: Impressions Abdomen/Pelvis CT 08/29/18 00:00 CONCLUSION: 1. Minute 1 mm nonobstructing left renal calculus. The kidneys and ureters are otherwise unremarkable. 2. Small air-fluid level in the urinary bladder which may be due to recent instrumentation. 3. Mild hepatic steatosis. 4. Status post cholecystectomy. Assessment and Plan (1) Atrial fibrillation: Code(s): I48.91 - Unspecified atrial fibrillation Status: Acute Plan 58-year-old female admitted with asthma exacerbation and A. fib RVR. Patient is having what seems to be postmenopausal bleeding in the setting of anticoagulation for A. fib. Hematuria vs postmenauposal vaginal bleeding. . CT of abdomen and pelvis with and without contrast report noted as above. 1 mm nonobstructing stone, small air-fluid level in the bladder. may be due to recent instrumentation. However there is no history of recent instrumentation. Urology following and recommends outpatient follow-up with urology for cystoscopy. 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 History not consistent with just hematuria. H&H stable. Monitor daily. A. fib RVR Continue digoxin Continue oral Cardizem Continue Eliquis Cardiology following Follow on telemetry Bronchitis Could be viral Continue to monitor clinically Continue azithromycin Asthma exacerbation Continue azithromycin Continue steroids. Transition to oral Nebulized treatments as needed Symbicort Severe obesity Weight loss recommended Leukocytosis Related to steroids Progress Note: Quality VTE Deep Vein Thrombosis/Pulmonary Embolism Present on Admission: No _ (1) Atrial fibrillation Qualifiers: Atrial fibrillation type: persistent Qualified Code(s): I48.1 - Persistent atrial fibrillation
--- NOTE | 2018-08-30 20:17 | P.CONOB ---
History of Present Illness Consult date: 08/28/18 Requesting Physician: Lanre Fuentes Reason for Consult: vaginal bleeding Primary Care Physician: Lit Grossman Chief Complaint: bleeding x 3 days History of Present Illness: 58-year-old female with history of obstructive sleep apnea, diabetes, COPD who presents with a one-week history of progressively worsening shortness of breath , productive cough. She says her illness started with cold-like symptoms, sore throat, runny nose, cough which worsened to the point where she could hardly breathe. Patient received steroids and duo nebs in the ER and is much better. Had initially been placed on BiPAP but this is now been removed. 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 admitted for COPD exacerbation and being anticoagulated H/O A-fib / DVT. Reports LMP @ age 52. Started bleeding when anticoagulants started per pt. POBHx- x 4 w/o complication PGYNHx- HPV + pap- never followed up due to insurance ( 2-3 yrs ago w. PCP per pt ) PMed Hx/ PsurgHx- see H+P medicine Review of Systems All other systems reviewed negative except as stated in HPI PMFSH - History History Provided By: Patient - Medical History Medical History: Medical History (Last Reviewed 08/25/18 @ 06:19 by Lanre Fuentes MD) Atrial fibrillation Asthma COPD (chronic obstructive pulmonary disease) DVT (deep venous thrombosis) Diabetes Diverticulitis Osteoarthritis Pulmonary emboli Sciatic leg pain Sleep apnea - Surgical History Surgical History: Surgical History (Last Reviewed 08/25/18 @ 06:19 by Lanre Fuentes MD) H/O knee surgery H/O laparoscopy History of loop recorder Hx of cholecystectomy - Family History Family History: Family History (Last Updated 08/25/18 @ 06:20 by Lanre Fuentes MD) Father Cancer Mother Heart disease - Tobacco History Second Hand Smoke Exposure: No Tobacco Use In Past 30 Days: Yes Smoking Status: Current every day smoker Tobacco Type: Cigarettes - Alcohol History How Often Do You Have a Drink Containing Alcohol: Never - Substance Use History Substance History: No History of Abuse - Travel History Recent Travel in the [place] Within the Last 8 Weeks: No Recent Travel Out of the Country Within the Last 8 Weeks: No - Immunization History Tetanus Immunization: <5 Years Hx Influenza Vaccine This Season: Yes Medications and Allergies Active Medications: Active Medications Acetaminophen (Tylenol) 650 mg PO Q4H PRN PRN Reason: Temp > 100.4 Last Admin: 08/28/18 08:34 Dose: 650 mg Hydrocodone Bitart/Acetaminophen ([place] 10/325) 1 tab PO Q4H PRN PRN Reason: Pain 7 to 10 Last Admin: 08/30/18 13:17 Dose: 1 tab Hydrocodone Bitart/Acetaminophen ([place] 5/325) 1 tab PO Q4H PRN PRN Reason: Pain 3 to 6 Al Hydroxide/Mg Hydroxide (Milk Of Magnesia Liq) 30 ml PO Q12H PRN PRN Reason: Mild Constipation Last Admin: 08/25/18 12:05 Dose: 30 ml Albuterol (Albuterol Neb (Prn)) 2.5 mg NEB Q2HR NEB PRN PRN Reason: SHORTNESS OF BREATH Last Admin: 08/27/18 13:35 Dose: 2.5 mg Apixaban (Eliquis) 5 mg PO BID [facility] Last Admin: 08/30/18 08:56 Dose: 5 mg Benzonatate (Tessalon Perles) 100 mg PO Q8H PRN PRN Reason: COUGH Last Admin: 08/27/18 12:59 Dose: 100 mg Bisacodyl (Dulcolax Supp) 10 mg RECTAL DAILY PRN PRN Reason: SEVERE CONSITIPATION Budesonide/Formoterol Fumarate (Symbicort 160/4.5 Mcg Inh) 2 puff INH Q12H PRN PRN Reason: Shortness Of Breath Last Admin: 08/26/18 05:09 Dose: 2 puff Dextrose (D50w Vial) 50 ml IV.PUSH UNSCH PRN PRN Reason: PER HYPOGLYCEMIA PROTOCOL Digoxin (Lanoxin) 250 mcg PO DAILY [facility] Last Admin: 08/30/18 08:56 Dose: 250 mcg Diltiazem HCl (Cardizem) 60 mg PO QID [facility] Last Admin: 08/30/18 17:47 Dose: 60 mg Glucagon (Glucagon Inj) 1 mg OTHER PRN PRN PRN Reason: for Hypoglycemia Protocol Insulin Aspart (Novolog Insulin Correctional Sugar Inj) 0 unit SQ ACHS [facility]; Protocol Last Admin: 08/30/18 17:48 Dose: 1 unit Lactulose (Lactulose Liq) 30 ml PO DAILY PRN PRN Reason: SEVERE CONSITIPATION Last Admin: 08/26/18 08:05 Dose: 30 ml Methylprednisolone Sodium Succinate (Solumedrol Inj) 60 mg IV.PUSH Q8HR [facility] Last Admin: 08/30/18 13:13 Dose: 60 mg Ondansetron HCl (Zofran Inj) 4 mg IV.PUSH Q6H PRN PRN Reason: NAUSEA OR VOMITING Sennosides (Senokot) 17.2 mg PO Q12H PRN PRN Reason: Moderate Constipation Last Admin: 08/25/18 12:05 Dose: 17.2 mg Sodium Chloride (Ns Flush) 2 ml IV.FLUSH BID [facility] Last Admin: 08/30/18 08:58 Dose: 2 ml Sodium Chloride (Ns Flush) 2 ml IV.FLUSH PRN PRN PRN Reason: FLUSH AFTER USING IV ACCESS Theophylline (Vern-24) 300 mg PO Q24H [facility] Last Admin: 08/30/18 08:57 Dose: 300 mg Allergies Allergy/AdvReac Type Severity Reaction Status Date / Time peanut Allergy Severe Anaphylaxis Verified 08/24/18 16:47 OMNISCAN /MRI PRECAUTION AdvReac Intermediate pt had Uncoded 08/24/18 16:47 hives after omniscan injection Home Medications Medication Instructions Recorded Confirmed Type albuterol sulfate 2.5 mg INHALATION QID 07/03/18 08/24/18 History albuterol sulfate [Ventolin HFA] 2 puff INHALATION Q6H PRN 07/03/18 08/24/18 History atorvastatin 10 mg PO DAILY 07/03/18 08/24/18 History budesonide-formoterol [Symbicort] 2 puff INHALATION Q12H PRN 07/03/18 08/24/18 History ipratropium-albuterol 3 ml INHALATION Q6-8H PRN 07/03/18 08/24/18 History metformin 1,000 mg PO BID 07/03/18 08/24/18 History theophylline 300 mg PO Q24H 07/03/18 08/24/18 History hydrocodone-acetaminophen 1 tab PO Q6H 08/27/18 08/27/18 History Exam Vital signs: Vital Signs 08/29/18 21:22 08/30/18 00:00 08/30/18 04:00 Temperature 98.4 F 97.4 F L Pulse Rate 87 88 Respiratory Rate 18 16 16 Blood Pressure 108/53 L 92/54 L Pulse Oximetry 94 L 94 L 08/30/18 08:00 08/30/18 10:44 08/30/18 12:00 Temperature 97.8 F 97.7 F Pulse Rate 99 H 90 Respiratory Rate 17 17 Blood Pressure 103/58 L 110/59 L Pulse Oximetry 96 95 96 08/30/18 16:00 Temperature 97.7 F Pulse Rate 96 H Respiratory Rate 17 Blood Pressure 118/65 Pulse Oximetry 95 Intake & Output 08/30/18 08/30/18 08/31/18 06:59 18:59 06:59 Intake Total 240 / 240 Balance 240 / 240 Weight 141.7 kg Intake: Oral 240 / 240 Other: # Voids 4 # Bowel Movements 0 - Constitutional mild distress, morbidly obese - Routine HEENT Exam Head: Present: normocephalic - Routine Chest/Breast/Axilla Exam Chest wall: Absent: tenderness - Routine Abdominal Exam Present: soft - Routine Exam Comments: moderate to scant bleeding per vagina- not active- uterus palpates normal size- probable nabothian's cyst on cervix. Adnexa unremarkable but limited due to pt' s body habitus Results - Labs CBC & Chem 7: 08/30/18 04:59 08/30/18 04:59 Labs: Laboratory Results - last 24 hr 08/29/18 08/30/18 08/30/18 20:39 04:59 04:59 WBC 20.3 H RBC 5.18 Hgb 13.7 Hct 42.7 MCV 82.5 MCH 26.5 L MCHC 32.1 RDW 13.9 Plt Count 307 MPV 8.6 Prelim Diff (Auto) Slide review pending Neut % (Auto) 90.1 H Lymph % (Auto) 5.7 L [place] % (Auto) 4.2 Eos % (Auto) 0.0 Baso % (Auto) 0.0 Neut # (Auto) 18.3 H Lymph # (Auto) 1.2 [place] # (Auto) 0.8 Eos # (Auto) 0.0 Baso # (Auto) 0.0 WBC Differential Manual diff final Seg Neuts % (Manual) 90 H Band Neuts % (Manual) 2 Lymphocytes % (Manual) 5 L Monocytes % (Manual) 1 Metamyelocytes % (Man) 1 Myelocytes % (Man) 1 H Abs Neuts (Manual) 19.1 H Differential Comment . Platelet Estimate Normal Platelet Morphology Normal Sodium 138 Potassium 4.6 Chloride 103 Carbon Dioxide 28.9 Anion Gap 6 BUN 26 H Creatinine 0.80 Estimated GFR 74 L POC Glucose 148 H Random Glucose 147 H Calcium 8.0 L Total Bilirubin 0.7 AST 22 ALT 33 Alkaline Phosphatase 73 Total Protein 6.6 D Albumin 3.0 L 08/30/18 08/30/18 08/30/18 08:23 13:12 17:48 WBC RBC Hgb Hct MCV MCH MCHC RDW Plt Count MPV Prelim Diff (Auto) Neut % (Auto) Lymph % (Auto) [place] % (Auto) Eos % (Auto) Baso % (Auto) Neut # (Auto) Lymph # (Auto) [place] # (Auto) Eos # (Auto) Baso # (Auto) WBC Differential Seg Neuts % (Manual) Band Neuts % (Manual) Lymphocytes % (Manual) Monocytes % (Manual) Metamyelocytes % (Man) Myelocytes % (Man) Abs Neuts (Manual) Differential Comment Platelet Estimate Platelet Morphology Sodium Potassium Chloride Carbon Dioxide Anion Gap BUN Creatinine Estimated GFR POC Glucose 159 H 141 H 164 H Random Glucose Calcium Total Bilirubin AST ALT Alkaline Phosphatase Total Protein Albumin Assessment and Plan - Diagnosis (1) Post-menopausal bleeding Code(s): N95.0 - Postmenopausal bleeding Status: Acute (2) HPV (human papilloma virus) infection Code(s): B97.7 - Papillomavirus as the cause of diseases classified elsewhere Status: Acute - Plan U/S in AM w. Outpt SHOOTER'S HELPER f/u- pt made aware needs repeat pap H+H stable since admit . Discharge Planning: To be seen by SHOOTER'S HELPER Once discharged
[2018-08-31] MEDS: MethylPREDNISolone Sod Succinate Inj 125 MG/2 ML Vial IV.PUSH SCH ×2 (06:12→13:16)
[2018-08-31 06:23] LABS: Calcium 7.8 mg/dL (8.5-10.1); Carbon Dioxide 27.2 meq/L (21.0-32.0); Potassium 4.4 meq/L (3.5-5.1)
[2018-08-31 06:37] LABS: Hematocrit 43.8 % (35.0-46.0); Hemoglobin 14.2 gm/dL (11.6-15.3); Mean Corpuscular HGB Conc 32.5 % (32.0-36.0); Mean Corpuscular Hemoglobin 26.5 pg (27.0-34.0); Mean Corpuscular Volume 81.6 fL (80.0-100.0); Mean Platelet Volume 8.5 fL (7.0-11.0); Platelet Count 323 th/mm3 (150-450); Red Blood Count 5.36 mil/mm3 (4.00-5.30); Red Cell Distribution Width 13.6 % (11.6-17.2); White Blood Count 22.6 th/mm3 (4.0-11.0)
[2018-08-31] MEDS: Digoxin 250 MCG Tablet PO SCH (08:15)
[2018-08-31] MEDS: Theophylline ER 24 HR 100 MG Capsule PO SCH (08:15)
[2018-08-31] MEDS: dilTIAZem 60 MG Tablet PO SCH ×4 (08:15→21:27)
[2018-08-31] MEDS: Insulin NovoLOG Aspart Correctional Sugar Inj SQ SCH ×4 (08:22→21:28)
--- NOTE | 2018-08-31 11:56 | US ---
EXAM DATE: 08/31/2018 11:35 AM EST AGE/SEX: 58 years / Female INDICATIONS: Postmenopausal bleeding that started after anticoagulation. CLINICAL DATA: This is the patient's initial encounter. Patient reports that signs and symptoms have been present for 3 days and indicates a pain score of 0/10. MEDICAL/SURGICAL HISTORY: . Asthma. Afib. COPD. Diabetic. Diverticulitis. DVT. PE. . Kne e surgery. Laparoscopic surgery. Loop recorder. Cholecystectomy. COMPARISON: C, CT ABD/PEL W & W/O CONTRAST, 08/29/2018. . MEASUREMENTS: Uterus:__8.8 x 6.3 x 5.0 cm Endometrial Stripe:__5 mm Right Ovary:__ . Not visualized. Left Ovary:__ . Not visualized. FINDINGS: Uterus: Uterus is normal size probable nabothian cyst at uterine cervical junction. Endometrial stri pe is normal. Right Ovary: Not visualized. Left Ovary: Not visualized. Fluid: No free fluid. CONCLUSION: 1. Endometrium appears normal. 2. Ovaries not visualized. Electronically signed by: Erasto Natarajan MD Board Certified Radiologist 08/31/2018 11:55 AM EST
--- NOTE | 2018-08-31 14:46 | P.OBGPN ---
Discussed with pt results of pelvic u/s showing endometrial stripe at 5mm. All questions answered. Recommended out patient f/u for either endometrial bx or repeat pelvic u/s. She also needs pap. Patient given contact info of [email or web address] to make [facility] appt. The medical decision-making described in the above note were completed with the assistance of the resident physician. I reviewed and agree with the findings presented. I attest that I had a [id number] encounter with the patient on the same day, and agree with the above.
--- NOTE | 2018-08-31 15:24 | P.PNIM ---
Subjective Interval history: Patient reports she is having discomfort from the pelvic ultrasound. She is still having vaginal bleeding but reports it is improved. Physical Exam Vital signs: Last Vital Signs Temp 97.6 F 08/31/18 12:00 Pulse 102 H 08/31/18 12:00 Resp 20 08/31/18 12:00 BP 126/66 08/31/18 12:00 Pulse Ox 93 L 08/31/18 13:48 Intake & Output 08/29/18 08/30/18 08/31/18 09/01/18 06:59 06:59 06:59 06:59 Intake Total 2290 / 2290 1325 / 1325 0 / 0 Output Total 2750 / 2750 1250 / 1250 Balance -460 / -460 75 / 75 0 / 0 Weight 142.5 kg 141.7 kg 141.6 kg Narrative: GENERAL: Obese female in no acute distress. CARDIOVASCULAR: Rate around 90, irregularly irregular rhythm without murmurs, gallops, or rubs. RESPIRATORY: Breath sounds equal bilaterally. No accessory muscle use. Faint wheezing diffusely. GASTROINTESTINAL: Abdomen soft, nondistended, nontender. Results Labs CBC & Chem 7: 08/31/18 05:38 08/31/18 05:38 Imaging Imaging: Impressions Pelvis Ultrasound 08/31/18 09:00 CONCLUSION: 1. Endometrium appears normal. 2. Ovaries not visualized. Assessment and Plan (1) Post-menopausal bleeding: Code(s): N95.0 - Postmenopausal bleeding Status: Acute (2) HPV (human papilloma virus) infection: Code(s): B97.7 - Papillomavirus as the cause of diseases classified elsewhere Status: Acute Plan 58-year-old female admitted with asthma exacerbation and A. fib RVR. Patient is having what seems to be postmenopausal bleeding in the setting of anticoagulation for A. fib. Postmenopausal vaginal bleeding. . CT of abdomen and pelvis with and without contrast report noted as above. 1 mm nonobstructing stone, small air-fluid level in the bladder. may be due to recent instrumentation. However there is no history of recent instrumentation. Appreciate TEXTILE MACHINE OPERATOR input. Outpatient follow-up is advised. Pelvic ultrasound unremarkable. H&H stable. Monitor daily. Since it is improving, will continue anticoagulant for now. A. fib RVR Continue digoxin Continue oral Cardizem Continue Eliquis. May consider a lower dose if bleeding persist or switch to a different anticoagulant. Cardiology following Follow on telemetry Bronchitis Could be viral Continue to monitor clinically Continue azithromycin Asthma exacerbation Continue azithromycin Continue steroids. Transition to oral Nebulized treatments as needed Symbicort Wean off oxygen as tolerated. Severe obesity Weight loss recommended Leukocytosis Related to steroids Discharge planning: Need to see further improvement in bleeding and respiratory status. Possible discharge tomorrow. Progress Note: Quality VTE Deep Vein Thrombosis/Pulmonary Embolism Present on Admission: No
--- NOTE | 2018-08-31 18:53 | P.PN ---
Subjective Interval history: alert no sob at rest Physical Exam Vital signs: Vital Signs 08/30/18 20:00 08/30/18 21:10 08/31/18 00:00 Temperature 98.1 F 97.6 F Pulse Rate 105 H 73 Respiratory Rate 17 16 17 Blood Pressure 123/79 100/55 L Pulse Oximetry 95 95 08/31/18 04:00 08/31/18 08:00 08/31/18 12:00 Temperature 97.4 F L 97.7 F 97.6 F Pulse Rate 103 H 105 H 102 H Respiratory Rate 17 20 20 Blood Pressure 120/64 137/83 126/66 Pulse Oximetry 95 91 L 92 L 08/31/18 13:48 08/31/18 16:00 Temperature 97.6 F Pulse Rate 107 H Respiratory Rate 20 Blood Pressure 123/88 Pulse Oximetry 93 L 96 Intake & Output 08/30/18 08/31/18 08/31/18 18:59 06:59 18:59 Intake Total 0 / 0 Balance 0 / 0 Weight 141.6 kg Intake: Oral 0 / 0 Other: # Voids 3 7 # Bowel Movements 1 1 Narrative: GENERAL: Obese female in no acute distress. CARDIOVASCULAR: Rate around 90, irregularly irregular rhythm without murmurs, gallops, or rubs. RESPIRATORY: Breath sounds equal bilaterally. No accessory muscle use. Faint wheezing diffusely. GASTROINTESTINAL: Abdomen soft, nondistended, nontender. Results - Labs CBC & Chem 7: 08/31/18 05:38 08/31/18 05:38 Laboratory Results - last 24 hr 08/30/18 08/31/18 08/31/18 21:08 05:38 05:38 WBC 22.6 H RBC 5.36 H Hgb 14.2 Hct 43.8 MCV 81.6 MCH 26.5 L MCHC 32.5 RDW 13.6 Plt Count 323 MPV 8.5 Sodium 139 Potassium 4.4 Chloride 105 Carbon Dioxide 27.2 Anion Gap 7 BUN 25 H Creatinine 0.72 Estimated GFR 84 L POC Glucose 184 H Random Glucose 156 H Calcium 7.8 L 08/31/18 08/31/18 08/31/18 08:21 13:17 17:38 WBC RBC Hgb Hct MCV MCH MCHC RDW Plt Count MPV Sodium Potassium Chloride Carbon Dioxide Anion Gap BUN Creatinine Estimated GFR POC Glucose 149 H 118 H 168 H Random Glucose Calcium - Imaging Impressions Pelvis Ultrasound 08/31/18 09:00 CONCLUSION: 1. Endometrium appears normal. 2. Ovaries not visualized. Assessment and Plan - Plan copd exacerbation improved [employer] O2 NEEDED BRONCHODILATORS INCREASE ACTIVITY
[2018-08-31] MEDS: predniSONE 20 MG Tablet PO SCH (21:27)
[2018-09-01 07:23] LABS: Hematocrit 44.1 % (35.0-46.0); Hemoglobin 14.7 gm/dL (11.6-15.3); Mean Corpuscular HGB Conc 33.2 % (32.0-36.0); Mean Corpuscular Volume 81.2 fL (80.0-100.0); Mean Platelet Volume 8.5 fL (7.0-11.0); Platelet Count 332 th/mm3 (150-450); Red Blood Count 5.44 mil/mm3 (4.00-5.30); Red Cell Distribution Width 13.9 % (11.6-17.2); White Blood Count 24.5 th/mm3 (4.0-11.0)
--- NOTE | 2018-09-01 07:31 | P.DS ---
DS: Providers Date of admission: 08/24/18 20:08 Primary care physician: Lit Grossman Consults: 08/24/18 20:12 Consult to Pulmonology Routine Consulting Provider: Ajit Fong Reason for Consultation: COPD Exacerbation Notified:: Service Spoke with:: Nessa Date Notified:: 08/24/18 Time Notified:: 20:17 Ordering Provider: SANTANA 08/27/18 13:01 Consult to Cardiology Routine Consulting Provider: Mustapha Madera Does the patient have a Toucher Up who follows them?: Yes Preferred [employer] Bonding Machine Tender:: Mustapha Madera Reason for Consultation: tachyarhythmia in 140s, possible SVT Notified:: Office Spoke with:: GEOVANI Date Notified:: 08/27/18 Time Notified:: 13:06 Ordering Provider: YOSELIN 08/28/18 13:54 Consult to Urology Routine Consulting Provider: Cody Rowe Reason for Consultation: Hematuria, not resolving Notified:: Office Spoke with:: Ash Date Notified:: 08/28/18 Time Notified:: 13:56 Ordering Provider: KENROY 08/30/18 12:38 Consult to Gynecology Routine Consulting Provider: Katie Munroe Reason for Consultation: Vaginal bleeding? Notified:: Physician Spoke with:: Date Notified:: 08/30/18 Time Notified:: 13:00 Ordering Provider: ELSA Brief History from admission: 58-year-old female with history of obstructive sleep apnea, diabetes, COPD who presents with a one-week history of progressively worsening shortness of breath , productive cough. She says her illness started with cold-like symptoms, sore throat, runny nose, cough which worsened to the point where she could hardly breathe. Patient received steroids and duo nebs in the ER and is much better. Had initially been placed on BiPAP but this is now been removed. Patient also reports subjective fevers at home, and temperature is 100.1 Patient update on day of discharge: Patient reports her breathing status is much improved. She is still having some vaginal bleeding. H&H remained normal. Discussed with DATA SUPPORT SPECIALIST who recommended outpatient follow-up. DS: Diagnosis Discharge Diagnosis (1) Post-menopausal bleeding: Status: Acute (2) HPV (human papilloma virus) infection: Status: Acute DS: Summary 58-year-old female admitted with asthma exacerbation and A. fib RVR. Evaluation and treatment course detailed below: A. fib RVR Continue digoxin Continue oral Cardizem Continue Eliquis. Cardiology followed the patient. Bronchitis and asthma exacerbation. Likely viral. Patient was given empiric azithromycin. Continue steroid taper on discharge Continue home dose inhalers. Patient weaned off oxygen. Postmenopausal vaginal bleeding in the setting of anticoagulation. CT of abdomen and pelvis with and without contrast report noted as above. 1 mm nonobstructing stone, small air-fluid level in the bladder. may be due to recent instrumentation. However there is no history of recent instrumentation. Appreciate DEVELOPER ARCHITECT input. Outpatient follow-up is advised. Pelvic ultrasound unremarkable. H&H remained normal. Patient advised to follow-up outpatient with DEVELOPER ARCHITECT. We discussed the risk and benefit of anticoagulation. She will follow-up outpatient with DEVELOPER ARCHITECT. Severe obesity Weight loss recommended Leukocytosis Related to steroids Time Spent with Patient Total time spent providing and/or coordinating discharge services: Quality: VTE Deep Vein Thrombosis/Pulmonary Embolism Present on Admission: No Exam Narrative Exam Narrative: GENERAL: This is a well-nourished, well-developed patient, in no apparent distress. CARDIOVASCULAR: Normal rate and irregular rhythm without murmurs, gallops, or rubs. RESPIRATORY: Good respiratory efforts. Breath sounds equal and clear to auscultation bilaterally. GASTROINTESTINAL: Abdomen soft, non-tender, non-distended. Normal active bowel sounds MUSCULOSKELETAL: Extremities without cyanosis, or edema. NEURO: Alert & Oriented x4 to person, place, time, situation. Moves all ext x4 PSYCH: Appropriate mood and affect. Results Labs on day of discharge: Labs from last 24 hours 09/01/18 09/01/18 08/31/18 06:05 06:05 21:21 WBC 24.5 H RBC 5.44 H Hgb 14.7 Hct 44.1 MCV 81.2 MCH 27.0 MCHC 33.2 RDW 13.9 Plt Count 332 MPV 8.5 Sodium Pending Potassium Pending Chloride Pending Carbon Dioxide Pending Anion Gap Pending BUN Pending Creatinine Pending POC Glucose 204 H Random Glucose Pending Calcium Pending 08/31/18 08/31/18 08/31/18 17:38 13:17 08:21 WBC RBC Hgb Hct MCV MCH MCHC RDW Plt Count MPV Sodium Potassium Chloride Carbon Dioxide Anion Gap BUN Creatinine POC Glucose 168 H 118 H 149 H Random Glucose Calcium Impressions ITS Impressions Chest X-Ray 08/24/18 16:59 CONCLUSION: No acute infiltrates. Mild pulmonary venous congestion.. Abdomen/Pelvis CT 08/29/18 00:00 CONCLUSION: 1. Minute 1 mm nonobstructing left renal calculus. The kidneys and ureters are otherwise unremarkable. 2. Small air-fluid level in the urinary bladder which may be due to recent instrumentation. 3. Mild hepatic steatosis. 4. Status post cholecystectomy. Pelvis Ultrasound 08/31/18 09:00 CONCLUSION: 1. Endometrium appears normal. 2. Ovaries not visualized. Discharge Plan Discharge Disposition Patient Disposition: Discharge Home Discharge Order Discharge Orders: Discharge Order (Routine); Ordered 09/01/18 Ordered By: Nicolle Villarreal Physicians Team ED Provider: Harshad Guaman ED Midlevel Provider: Sonia Murray Attending Provider: Nicolle Villarreal Other Providers: Ajit Fong ; Mustapha Madera ; Cody Rowe ; Katie Munroe Rxs /Orders / Referrals /Forms Prescriptions: New prednisone 20 mg Tablet 20 mg PO DIRECTED Qty: 7 RF: 0 digoxin 250 mcg Tablet 250 mcg PO DAILY Qty: 30 RF: 0 apixaban [Eliquis] 5 mg Tablet 5 mg PO BID Qty: 60 RF: 0 diltiazem HCl 240 mg capsule,extended release 24hr 240 mg PO DAILY Qty: 30 RF: 0 Continue hydrocodone-acetaminophen 5-325 mg Tablet 1 tab PO Q6H RF: 0 ipratropium-albuterol 0.5 mg-3 mg(2.5 mg base)/3 mL Solution For Nebulization 3 ml INHALATION Q6-8H PRN (Reason: Shortness Of Breath) RF: 0 albuterol sulfate 2.5 mg /3 mL (0.083 %) Solution For Nebulization 2.5 mg INHALATION QID RF: 0 metformin 1,000 mg Tablet 1,000 mg PO BID RF: 0 albuterol sulfate [Ventolin HFA] 90 mcg/actuation Hfa Aerosol Inhaler 2 puff INHALATION Q6H PRN (Reason: Shortness Of Breath) RF: 0 theophylline 300 mg Capsule,Extended Release 24hr 300 mg PO Q24H RF: 0 budesonide-formoterol [Symbicort] 160-4.5 mcg/actuation Hfa Aerosol Inhaler 2 puff INHALATION Q12H PRN (Reason: Shortness Of Breath) RF: 0 atorvastatin 10 mg Tablet 10 mg PO DAILY RF: 0 methocarbamol [Robaxin] 500 mg tablet 500 mg PO Q6H PRN (Reason: muscle spasm) Qty: 20 RF: 0 Referrals: Lit Grossman [Other] - See Instructions Salazar Morrell DO [Family Provider] - See Instructions Status ED Status: Left Department
[2018-09-01 07:42] LABS: Calcium 7.9 mg/dL (8.5-10.1); Carbon Dioxide 29.3 meq/L (21.0-32.0); Potassium 4.3 meq/L (3.5-5.1)
[2018-09-01] MEDS: Insulin NovoLOG Aspart Correctional Sugar Inj SQ SCH (07:56)
[2018-09-01] MEDS: Digoxin 250 MCG Tablet PO SCH (08:23)
[2018-09-01] MEDS: Theophylline ER 24 HR 100 MG Capsule PO SCH (08:23)
[2018-09-01] MEDS: predniSONE 20 MG Tablet PO SCH (08:24)
[2018-09-01] MEDS: dilTIAZem 60 MG Tablet PO SCH (08:24)
== END 2018-09-01 11:04 | disposition home or self-care (01) ==
LOC: NEPE 16:38 → NEDA 16:38 → OBSVTOIN 20:08 → N03 22:26 → HCIS 08-25 18:13 → N04 08-29 19:00
PROVIDERS: ADMIT Family Medicine; ATTEND Family Medicine
DX: J44.1 Chronic obstructive pulmonary disease with (acute) exacerbation; J20.8 Acute bronchitis due to other specified organisms; I48.1 Persistent atrial fibrillation; Z91.010 Allergy to peanuts; T38.0X5A Adverse effect of glucocorticoids and synthetic analogues, initial encounter; Z99.81 Dependence on supplemental oxygen; Z87.891 Personal history of nicotine dependence; Z68.43 Body mass index [BMI] 50.0-59.9, adult; N95.0 Postmenopausal bleeding; Z86.718 Personal history of other venous thrombosis and embolism; E66.01 Morbid (severe) obesity due to excess calories; Z79.899 Other long term (current) drug therapy; J45.901 Unspecified asthma with (acute) exacerbation; Z90.49 Acquired absence of other specified parts of digestive tract; M54.30 Sciatica, unspecified side; Z79.01 Long term (current) use of anticoagulants; Z79.51 Long term (current) use of inhaled steroids; D72.829 Elevated white blood cell count, unspecified; E11.9 Type 2 diabetes mellitus without complications; G47.33 Obstructive sleep apnea (adult) (pediatric); Z86.711 Personal history of pulmonary embolism; Z79.84 Long term (current) use of oral hypoglycemic drugs; M19.90 Unspecified osteoarthritis, unspecified site